=== PATIENT | female | born 1970 | race Caucasian/White ===

== ENCOUNTER 2019-05-22 12:40 | Emergency (ER) | payer BC, SELFPAY ==
[2019-05-22 12:53] VITALS: BMI 51.3
[2019-05-22 12:56] VITALS: BP 201/125; PULSE 99; RESP 18; TEMP 36.7; O2SAT 97
--- NOTE | 2019-05-22 13:10 | XR_ITS ---
WS: [id number] XR finger LT min 2V [id number] REASON FOR EXAM: trauma; L index FINDINGS: This study shows a corner fracture of the proximal portion of the distal first phalanx. Sma ll ossicle is seen from the bony elements. The remaining hand was normal. XR/XR finger LT min 2V [id number] IMPRESSION: Her fracture of the proximal portion of the distal first phalanx.
--- NOTE | 2019-05-22 13:11 | ED_ITS ---
HPI - Female Genitourinary General: Chief complaint: Back Pain/Injury Stated complaint: BACK AND GROIN PAIN Time Seen by Provider: 05/22/19 13:00 Source: patient Mode of arrival: ambulatory Limitations: no limitations History of Present Illness: HPI Narrative: Patient is a 48-year-old female who presents to ED today with complaints of left-sided back pain that began around 9 AM this morning. She states pain seems to radiate around into her left lower abdomen and groin. She has noticed some urinary hesitancy today. She states she normally suffers from urinary incontinence but states this has been worse over the past few days. She has not noticed any dysuria, odor. She has not had any vaginal discharge. She states she is not sexually active. Denies history of nephrolithiasis. Patient has not been running fevers. She does not complain of any nausea or vomiting or changes in bowel habits. Patient also wants me to evaluate her left index finger. Patient states she injured it 3 weeks ago and believes it might be broken. MD elicited complaint: back pain, flank pain, urinary incontinence and difficulty urinating Onset (ago): hour(s) Location of symptoms: LLQ, urethra, low back and flank Severity: moderate Consistency: constant Vaginal discharge: none Vaginal bleeding: none Urinary symptoms: Difficulty Urinating and Flank Pain Relieving factors: none Associated symptoms: Reports abdominal pain; Deny headache(s), nausea, syncope or vaginal discharge Review of Systems Const: Denies: fever, chills, body aches, change in appetite, change in weight, fatigue or malaise Card: Denies: chest pain, palpitations, irregular heart rhythm, edema, lightheadedness, syncope or pre-syncope Resp: Denies: shortness of breath, productive cough, coughing up blood or chest congestion GI: Reports: abdominal pain; Denies: nausea, vomiting, diarrhea, rectal pain, change in stool character, blood in stool, mucus in stool, white/light colored stool or fatty stool : Reports: flank pain, urinary hesitancy and urinary incontinence (chronic ); Denies: difficulty urinating, painful urination, urinary frequency, urinary urgency, blood in urine, genital itching, vaginal odor, vaginal bleeding or vaginal discharge Musc: Denies: neck pain, extremity pain, extremity swelling or joint pain Skin/Breast: Denies: rash Neuro: Denies: headache, numbness in extremities, weakness in extremities or changes in sensation PFSH ED PFSH: Social History Smoking and tobacco status: current every day smoker Physical Exam Const: COMMON NORMALS: no apparent distress, oriented x3, no limitations and alert NUTRITIONAL APPEARANCE: obese morbidly obese HENMT: COMMON NORMALS: normocephalic and head/scalp atraumatic HEAD & SCALP: normocephalic and atraumatic Resp: COMMON NORMALS: normal respiratory effort and clear to auscultation bilaterally AUSCULTATION: clear to auscultation bilaterally Cardio: COMMON NORMALS: regular rate and regular rhythm RATE: regular rate RHYTHM: regular rhythm GI: COMMON NORMALS: normal to inspection, nondistended, normoactive bowel sounds, soft to palpation, non-tender, no hepatosplenomegaly and no masses PALPATION: Yes soft and Yes no hepatosplenomegaly OTHER: states she is not TTP; states pain is more internal Back/Pelvis: OTHER: TTP just below L flank Extremity: OTHER: TTP L distal phalanx; small deformity noted Neuro: COMMON NORMALS: oriented x3 SENSORIUM/ORIENTATION: Yes alert Skin: COMMON NORMALS: no rashes or lesions noted GENERAL SKIN EXAM: no rashes or lesions noted Course Vital Signs: Vital signs: Vital Signs Temperature 98.0 F 05/22/19 12:56 Pulse Rate 99 05/22/19 12:56 Respiratory Rate 18 05/22/19 12:56 Blood Pressure 201/125 05/22/19 12:56 Pulse Oximetry 97 05/22/19 12:56 MDM - Female [facility] Narrative: Medical decision making narrative: Patient with several nonobstructing left renal stones. Patient symptoms are most likely consistent with a recently passed stone. Her labs are non-concerning at this time. She does have a distal phalanx fracture of her left index finger. We will splint this and have her follow-up with orthopedics. We will give her pain medications and nausea meds for the kidney stones. Recommend she follow-up with PCP. Retu rn to ED precautions given. Lab Data: Labs: Lab Results 05/22/19 05/22/19 05/22/19 Range/Units 13:14 13:37 13:37 WBC 9.5 (4.0-10.0) 10^3/ uL RBC 4.65 (4.1-5.3) 10^6/u L Hgb 14.0 (11.5-15.3) g/dL Hct 41.9 (37.0-47.0) % MCV 90.1 (81-99) fL MCH 30.1 (28.0-34.0) pg MCHC 33.4 (30.0-36.0) g/dL RDW 13.2 (12.1-15.1) % Plt Count 265 (130-400) 10^3/c mm MPV 10.6 H (7.4-10.4) fL Neut % (Auto) 67.7 % Lymph % (Auto) 23.8 % Quay % (Auto) 4.1 % Eos % (Auto) 3.5 % Baso % (Auto) 0.3 % Neut # (Auto) 6.5 (1.8-7.7) 10^3/u L Lymph # (Auto) 2.3 (0.8-4.8) 10^3/u L Quay # (Auto) 0.4 (0.2-0.9) 10^3/u L Eos # (Auto) 0.3 (0.0-0.8) 10^3/u L Baso # (Auto) 0.0 (0.0-0.1) 10^3/u L Nucleated RBC % (a uto) 0 % Nucleated RBCs # 0.0 /100WBC Sodium 135 L (136-145) mmol/L Potassium 4.2 (3.5-5.1) mmol/L Chloride 98 (98-107) mmol/L Carbon Dioxide 30 H (22-29) mmol/L Anion Gap 11.2 (5-19) BUN 8 (6-20) mg/dL Creatinine 0.6 (0.5-0.9) mg/dL GFR Calculation 107.6 (90-130) mL/min Glucose 205 H (65-115) mg/dL Calculated Osmolal ity 282 L (285-295) mOsm/k g Calcium 9.3 (8.5-10.5) mg/dL Total Bilirubin 0.5 (0.15-1.2) mg/dL AST 30 (0-32) U/L ALT 67 H (0-33) U/L Alkaline Phosphata se 128 H (35-105) IU/L Total Protein 7.3 (6.6-8.7) g/dL Albumin 4.2 (3.5-5.2) g/dL Globulin 3.1 (1.3-4.6) g/dL HCG, Qual (Negative) Urine Color Yellow (Yellow) Urine Appearance Clear (CLEAR) Urine pH 6 (5-7) Ur Specific Gravit y 1.020 (1.005-1.030) Urine Protein Trace (Negative) Urine Glucose (UA) Norm (Normal) Urine Ketones Negative (Negative) Urine Blood Neg (Negative) Urine Nitrate Negative (Negative) Urine Bilirubin Neg (NEGATIVE) Urine Urobilinogen Norm (Negative) mg/dL Ur Leukocyte Cathie ase Negative (Negative) Urine RBC None (0-2) /hpf Urine WBC None (0-5) /hpf Ur Squamous Epith Cells 15-25 H (0-5) Urine Bacteria 1+ H (NONE) Urine Mucus Trace 05/22/19 Range/Units 13:37 WBC (4.0-10.0) 10^3/ uL RBC (4.1-5.3) 10^6/u L Hgb (11.5-15.3) g/dL Hct (37.0-47.0) % MCV (81-99) fL MCH (28.0-34.0) pg MCHC (30.0-36.0) g/dL RDW (12.1-15.1) % Plt Count (130-400) 10^3/c mm MPV (7.4-10.4) fL Neut % (Auto) % Lymph % (Auto) % Quay % (Auto) % Eos % (Auto) % Baso % (Auto) % Neut # (Auto) (1.8-7.7) 10^3/u L Lymph # (Auto) (0.8-4.8) 10^3/u L Quay # (Auto) (0.2-0.9) 10^3/u L Eos # (Auto) (0.0-0.8) 10^3/u L Baso # (Auto) (0.0-0.1) 10^3/u L Nucleated RBC % (a uto) % Nucleated RBCs # /100WBC Sodium (136-145) mmol/L Potassium (3.5-5.1) mmol/L Chloride (98-107) mmol/L Carbon Dioxide (22-29) mmol/L Anion Gap (5-19) BUN (6-20) mg/dL Creatinine (0.5-0.9) mg/dL GFR Calculation (90-130) mL/min Glucose (65-115) mg/dL Calculated Osmolal ity (285-295) mOsm/k g Calcium (8.5-10.5) mg/dL Total Bilirubin (0.15-1.2) mg/dL AST (0-32) U/L ALT (0-33) U/L Alkaline Phosphata se (35-105) IU/L Total Protein (6.6-8.7) g/dL Albumin (3.5-5.2) g/dL Globulin (1.3-4.6) g/dL HCG, Qual Negative (Negative) Urine Color (Yellow) Urine Appearance (CLEAR) Urine pH (5-7) Ur Specific Gravit y (1.005-1.030) Urine Protein (Negative) Urine Glucose (UA) (Normal) Urine Ketones (Negative) Urine Blood (Negative) Urine Nitrate (Negative) Urine Bilirubin (NEGATIVE) Urine Urobilinogen (Negative) mg/dL Ur Leukocyte Cathie ase (Negative) Urine RBC (0-2) /hpf Urine WBC (0-5) /hpf Ur Squamous Epith Cells (0-5) Urine Bacteria (NONE) Urine Mucus Imaging Data: CT renal : Radiologist's impression: [place] [address] CT Scan Report Signed Patient: Rimma White Unit #: [id number] : 1970 Age/Sex: 48 / F ADM Date: 05/22/19 Loc: ER Room/Bed: Attending Dr: Ordering Provider/Ordering MD: Casi Hood Date of Service: 05/22/19 Procedure(s): CT kidney stone 19739 Accession Number(s): [id number] Report Number: [id number] PROCEDURE INFORMATION: Exam: CT Abdomen And Pelvis Without Contrast Exam date and time: 05/22/2019 1:11 PM Age: 48 years old Clinical indication: Abdominal pain; Flank; Left; Prior surgery; Surgery date: 6+ months; Surgery type: Hysto, hernia, bladder; Additional info: L flank/abdominal pain; Urinary hesitancy TECHNIQUE: Imaging protocol: Computed tomography of the abdomen and pelvis without contrast. Total DLP: 1969.74 mGy-cm Radiation optimization: All CT scans at this facility use at least one of these dose optimization techniques: automated exposure control; mA and/or kV adjustment per patient size (includes targeted exams where dose is matched to clinical indication); or iterative reconstruction. COMPARISON: CT abdomen pelvis w con* [id number] 11/11/2016 11:50 PM FINDINGS: Liver: Mild fatty liver. Gallbladder and bile ducts: Normal. No calcified stones. No ductal dilation. Pancreas: Normal. No ductal dilation. Spleen: Normal. No splenomegaly. Adrenals: Normal. No mass. Kidneys and ureters: One or more nonobstructing left renal calyceal stones. Stomach and bowel: Moderate diverticulosis. Appendix: Normal appendix. Intraperitoneal space: Unremarkable. No free air. No significant fluid collection. Vasculature: Calcification of the abdominal aorta and/or iliac arteries consistent with atherosclerotic vessel disease. Lymph nodes: Unremarkable. No enlarged lymph nodes. Bladder: Unremarkable as visualized. Reproductive: Stable hysterectomy. Bones/joints: Mild multilevel spine degenerative changes including degenerative disc disease, spondylosis and facet degenerative changes. Soft tissues: Unremarkable. CT/CT kidney stone 22224 IMPRESSION: 1. Mild fatty liver. 2. One or more nonobstructing left renal calyceal stones. Radiation Dose CTDIVOL = (mGy): DLP = 1968.74 (mGy-cm) Dictated By: Naveen Gloria MD Signed By: Naveen Gloria MD Signed Date/Time: 05/22/19 1340 DD/ 1338 L finger XR: Radiologist's impression: [facility] [address] [place] [address] XRay Report Signed Patient: Rimma White Unit #: [id number] : 1970 Age/Sex: 48 / F ADM Date: 05/22/19 Loc: ER Room/Bed: Attending Dr: Ordering Provider/Ordering MD: Casi Hood Date of Service: 05/22/19 Procedure(s): XR finger LT min 2V 94911 Accession Number(s): [id number] Report Number: [id number] WS: [id number] XR finger LT min 2V 21181 REASON FOR EXAM: trauma; L index FINDINGS: This study shows a corner fracture of the proximal portion of the distal first phalanx. Small ossicle is seen from the bony elements. The remaining hand was normal. XR/XR finger LT min 2V 35771 IMPRESSION: Her fracture of the proximal portion of the distal first phalanx. Dictated By: Joon Gandhi DO Signed By: Joon Gandhi DO Signed Date/Time: 05/22/191337 DD/ 133 Discharge Plan Discharge Patient Disposition: Home, Self-Care Clinical Impression: Left nephrolithiasis Closed fracture of phalanx of left index finger Qualifiers: Encounter type: initial encounter Phalanx: distal Fracture alignment: nondisplaced Qualified Code(s): S62.661A - Nondisplaced fracture of distal phalanx of left index finger, initial encounter for closed fracture Condition: Stable Prescriptions: New hydrocodone-acetaminophen 5-325 mg tablet 1 tab PO Q6H PRN (Reason: pain) Qty: 14 RF: 0 Zofran 4 mg tablet 4 mg PO Q6H PRN (Reason: nausea and vomiting) Qty: 14 RF: 0 Discharge Orders: Discharge Order (Routine); Ordered 05/22/19 Ordered By: Casi Hood Referrals: Wilmer Wilkins DO [Primary Care Provider] - Discharge Diet: Usual diet Discharge Activity: Increase activity as tolerated Patient Instructions: Finger Fracture (ED), Kidney Stones (ED) Coding Level of Care Code ED Spider Assembler for Chg Fwd Exam Detailed
[2019-05-22 13:46] LABS: Bilirubin Urine Neg (NEGATIVE); Blood Urine Neg (Negative); Glucose Urine UA Norm (Normal); Ketones Urine Negative (Negative); Nitrate Urine Negative (Negative); Protein Urine Trace (Negative); Urine Appearance Clear (CLEAR); Urine Color Yellow (Yellow); pH Urine 6 (5-7)
[2019-05-22 13:47] LABS: Add Urine Microscopic? YES; Leukocyte Esterase Urine Negative (Negative); Urobilinogen Urine Norm (Negative)
[2019-05-22 13:48] LABS: Basophils % 0.3 %; Eosinophils # 0.3 10^3/uL (0.0-0.8); Eosinophils % 3.5 %; Hematocrit 41.9 % (37.0-47.0); Lymphocytes # 2.3 10^3/uL (0.8-4.8); Lymphocytes % 23.8 %; Mean Corpuscular HGB Conc 33.4 g/dL (30.0-36.0); Mean Corpuscular Hemoglobin 30.1 pg (28.0-34.0); Mean Corpuscular Volume 90.1 fL (81-99); Mean Platelet Volume 10.6 fL (7.4-10.4); Monocytes # 0.4 10^3/uL (0.2-0.9); Monocytes % 4.1 %; Neutrophils # 6.5 10^3/uL (1.8-7.7); Neutrophils % 67.7 %; Nucleated Red Blood Cells % 0 %; Platelet Count 265 10^3/cmm (130-400); Red Blood Count 4.65 10^6/uL (4.1-5.3); Red Cell Distribution Width 13.2 % (12.1-15.1); White Blood Count 9.5 10^3/uL (4.0-10.0)
[2019-05-22 13:54] LABS: Add Urine Culture? No; Bacteria Urine 1+; Mucus Urine TRACE; Squamous Epithelial Cell Urine 15-25 (0-5)
[2019-05-22 14:16] LABS: HCG, Serum Qual Negative (Negative)
[2019-05-22 14:20] LABS: Alanine Aminotransferase 67 U/L (0-33); Albumin Level 4.2 g/dL (3.5-5.2); Alkaline Phosphatase 128 IU/L (35-105); Anion Gap 11.2 (5-19); Aspartate Amino Transferase 30 U/L (0-32); Blood Urea Nitrogen 8 mg/dL (6-20); Calcium 9.3 mg/dL (8.5-10.5); Carbon Dioxide 30 mmol/L (22-29); Chloride 98 mmol/L (98-107); Globulin 3.1 g/dL (1.3-4.6); Glomerular Filtration Rate 107.6 mL/min (90-130); Glucose 205 mg/dL (65-115); Osmolality Calculated 282 mOsm/kg (285-295); Potassium 4.2 mmol/L (3.5-5.1); Sodium 135 mmol/L (136-145); Total Bilirubin 0.5 mg/dL (0.15-1.2); Total Protein 7.3 g/dL (6.6-8.7)
[2019-05-22 14:48] VITALS: RESP 18; O2SAT 98
[2019-05-22] MEDS: morphine 4 mg/mL SDV 1 mL IM (14:48)
[2019-05-22] MEDS: ondansetron 2 mg/ML SDV 2 mL 4 MG IM (14:48)
[2019-05-22] MEDS: ketorolac 60 mg/2 mL INJ IM (14:48)
[2019-05-22 15:15] VITALS: BP 158/107; PULSE 74; RESP 18; O2SAT 92
--- NOTE | 2019-05-24 12:36 | DCPLANNER ---
market asset protection manager had message to schedule a follow up appointment for patient with ortho. market asset protection manager called the ortho clinic, spoke with Jessi, gave clinic patients information. market asset protection manager was told that patients information would be printed and reviewed. Clinic will call complex case manager and patient with appointment information.
--- NOTE | 2019-05-28 08:46 | DCPLANNER ---
Patient had an appointment scheduled for 05.25.19 with ortho, patient did attend the appointment.
== END 2019-05-22 15:29 | disposition home or self-care (01) ==
PROVIDERS: Emergency Provider Physician Assistant; Family Provider Internal Medicine; PCP Internal Medicine
DX: S62.522A Displaced fracture of distal phalanx of left thumb, initial encounter for closed fracture (principal); N20.0 Calculus of kidney; E66.01 Morbid (severe) obesity due to excess calories; Z68.43 Body mass index [BMI] 50.0-59.9, adult; F17.200 Nicotine dependence, unspecified, uncomplicated; X58.XXXA Exposure to other specified factors, initial encounter
CPT/HCPCS: 12345; 29130; 36415; 73140; 74176; 80053; 81001; 84703; 85025; 96372; 99281; 99283; J1885; J2270; J2405

== ENCOUNTER 2019-09-06 09:30 | Outpatient (CLI) | payer BC, SELFPAY ==
--- NOTE | 2019-09-06 09:36 | MM_ITS ---
WS: [id number] BILATERAL DIGITAL SCREENING MAMMOGRAPHY WITH CAD CLINICAL INFORMATION: SCREENING HISTORY: Screening mammogram. No current complaints. COMPARISON: None. TECHNIQUE: Bilateral CC and MLO views. FINDINGS: Scattered fibroglandular densities bilaterally. No suspicious focal mass, asymmetry, calcifications, or architectural distortion. No evidence of malignancy. Incidental intramammary lymph nodes. Incidental axillary left nodes with fatty lidia. MM/[place] [id number] IMPRESSION: BI-RADS: 2-Benign FOLLOW UP: 1 Year Follow-up Recommend return to annual screening mammography.
== END 2019-09-06 09:31 | disposition home or self-care (01) ==
LOC: RADSHAW 09:35
PROVIDERS: PCP Internal Medicine; Visit Provider Family Medicine
DX: Z12.31 Encounter for screening mammogram for malignant neoplasm of breast (principal)
CPT/HCPCS: 77067

== ENCOUNTER 2019-10-30 22:50 | Inpatient (IN) | payer BC, SELFPAY ==
--- NOTE | 2019-10-30 22:51 | ECG_ITS ---
[facility] Test Date: 2019-10-30 Pat Name: Rimma White Department: Room: Gender: Female [employer] Assistant: : 1970 Requested By: Antonio Kay Order Number: [id number] Lottie MD: Ileana Espinal M.D. Measurements Intervals [place] Rate: 85 P: 70 LA: 203 QRS: 55 QRSD: 110 T: 98 QT: 377 QTc: 451 Interpretive Statements SINUS RHYTHM POSSIBLE LEFT ATRIAL ENLARGEMENT [-0.1mV P WAVE IN V1/V2] LOW QRS VOLTAGE IN PRECORDIAL LEADS [QRS DEFLECTION < 1.0 mV IN CHEST LEADS] POSSIBLE ANTERIOR MYOCARDIAL INFARCTION , OF INDETERMINATE AGE [30 ms Q WAVE IN V3/V4, OR R < 0.2 mV IN V4] ST ELEVATION, CONSIDER INFERIOR INJURY [MARKED ST ELEVATION W/O NORMALLY INFLECTED T WAVE IN II/aVF] ACUTE AK Compared to ECG 09/29/2018 13:28:33 ST (T wave) deviation now present Sinus tachycardia no longer present Myocardial infarct finding still present Electronically Signed On 11-01-2019 0:00:02 CDT by Ileana Espinal M.D. [email or web address]
[2019-10-30 22:53] VITALS: BP 123/90; PULSE 85; RESP 18; TEMP 36.7; O2SAT 94; BMI 53.1
[2019-10-30] MEDS: ticagrelor 90 mg Tablet 180 MG PO (23:00)
[2019-10-30 23:02] LABS: Basophils # 0.1 10^3/uL (0.0-0.1); Basophils % 0.4 %; Eosinophils # 0.4 10^3/uL (0.0-0.8); Eosinophils % 2.9 %; Hematocrit 44.6 % (37.0-47.0); Hemoglobin 14.7 g/dL (11.5-15.3); Lymphocytes # 4.8 10^3/uL (0.8-4.8); Lymphocytes % 35.1 %; Mean Corpuscular Hemoglobin 30.4 pg (28.0-34.0); Mean Corpuscular Volume 92.1 fL (81-99); Mean Platelet Volume 10.9 fL (7.4-10.4); Monocytes # 0.8 10^3/uL (0.2-0.9); Monocytes % 5.8 %; Neutrophils # 7.45 10^3/uL (1.8-7.7); Nucleated Red Blood Cells % 0 %; Platelet Count 278 10^3/cmm (130-400); Red Blood Count 4.84 10^6/uL (4.1-5.3); White Blood Count 13.6 10^3/uL (4.0-10.0)
[2019-10-30] MEDS: heparin 5,000 unit/mL INJ 1 mL 4000 UNIT IVP (23:03)
[2019-10-30 23:04] VITALS: RESP 16
[2019-10-30] MEDS: morphine 4 mg/mL SDV 1 mL IVP (23:04)
--- NOTE | 2019-10-30 23:04 | XACV_ITS ---
Ht: 160 cm Wt: 136 kg BSA: 2.55 m2 Gender: Female : 1970 Exam Priority: Routine Procedure(s): Procedure Description: Diagnostic procedure Procedure Description: Left Heart Catheterization Procedure Description: Right Heart Catheterization Diagnostic Findings LM has 0% stenosis. pLAD: Mild 30% stenosis, ZUNILDA: 3 flow. mLAD: Mild 30% stenosis, ZUNILDA: 3 flow. Mid Circumflex Coronary Artery: Severe 95% stenosis, ZUNILDA: 2 flow. Mid Right Coronary Artery: Severe 95% stenosis, ZUNILDA: 2 flow. Coronary angiography shows right dominance. PCI Status: Urgent PCI Indication: STEMI - Immediate PCI for STEMI Interventional Findings Mid Circumflex Coronary Artery: 95% stenosis treated with MDT R KISHA 4.0X12 JAZMINE. 0% residual stenosis, ZUNILDA: 3 flow. Mid Right Coronary Artery: 95% stenosis treated with MDT R KISHA 2.75X30 JAZMINE. 0% residual stenosis, ZUNILDA: 3 flow. Conclusions There is severe coronary artery disease with three vessel disease. Mid Circumflex Coronary Artery was treated with Drug Eluting Stent. Mid Right Coronary Artery was treated with Drug Eluting Stent. Recommendations 1-Return to inpatient for close monitoring and routine cath care 2-Risk factor modification for secondary prevention 3-Statin with LDL goal <70 mg/dl, aspirin 81 mg life-long 4-Patient was pre-loaded with 180mg of Brillinta. Continue Brillinta 90mg p.o. twice daily for at least one year. We will assess at the end of one year again to continue it further or not 5-Continue optimal medical management 6-Follow up with Dr. Mendez in four weeks and with your PCP in one week . Interventional RX Recommendation: PCI w/o planned CABG Diagnostic RX Recommendation: PCI w/o planned CABG Pressures Phase:Rest AO : 125 mmHg / 76 mmHg ( 98 mmHg ) @ 6:34:00 PM 81 mmHg / 61 mmHg ( 71 mmHg ) @ 7:04:00 PM Clinical Evaluation EBL: 5mL-10mL Procedural Details Pre-Procedure Time Out. Identified patient by full name and date of as verbalized by the patient/guarantor. Does the consent match the physician's order: N/A Emergent; Informed Consent not obtained due to time critical life threat. Accurate & Complete Informed Consent: N/A Emergent; Informed Consent not obtained due to time critical life threat. Inpatient/Outpatient History & Physical on Chart: N/A Emergent; Informed Consent not obtained due to time critical life threat. If H&P is completed, is and addenduem needed: N/A Emergent; Informed Consent not obtained due to time critical life threat; If yes, is the addendum complete: N/A Emergent; Informed Consent not obtained due to time critical life threat. Visualize and Verify Site with Patient/Guarantor: N/A. Relevant Radiology Images available: N/A Emergent; Informed Consent not obtained due to time critical life threat. Pre-op teaching completed and patient verbalized understanding. The risks, benefits, and alternatives of sedation and/or procedure were discussed by physician. The patient agrees to continue. Procedure started. Correct patient, site and procedure confirmed by cath team. Current diagnosis: STEMI. PERRLA. Strong, equal hand portable sawyer bilaterally. Lungs clear x 5 lobes. IV Site on Arrival: 18 gauge in the right anticubital. IV Site on Arrival: 18 gauge in the left anticubital. Oxygen started at 2liters/min via nasal canula. IV Fluids: 0.9% NaCl at KVO. 0 mL infused prior to lab animal technician. right groin was prepped with chloroprep then draped in the usual sterile fashion. right radial was prepped with chloroprep then draped in the usual sterile fashion. Physician notified. Baseline sample Acquired. HR: 104 BPM. Equipment: 6F - Radial. Cardiac Cath Pack. ACIST Manifold Kit Model BT 2000. Heparinized Saline (2 units/mL), 1000 mL bag. Physician arrived. Physician scrubbed in. Immediate Pre-Procedure Time Out. Correct Patient: Yes; Correct Procedure: Yes; Correct Site: Yes; Correct Patient Position: Yes; Correct Supplies: Yes; Dried Flammable Prep: Yes; Blood Products Available: N/A Emergent; Informed Consent not obtained due to time critical life threat;. Lidocaine 1% infiltrated to the right radial. Arterial access obtained. A 6 maldivian JR4 catheter in over wire. Catheter out. A 6 maldivian 3DRC catheter in over wire. pt moving around alot. unable to keep pt still at this time. 6 maldivian XB 3 guide catheter was inserted over the wire. oxy mask set at 6 lpm. Multiple views taken of left coronary artery. Benld guidewire was advanced through the guide catheter to lesion in the mid Circ. Stent inserted to lesion in the mid Circ. Inflation Number : 1 Scarlett ANTONY Pedroza KISHA 4.0X12 JAZMINE -Lot Number# [id number] was prepped and advanced across the Mid CX. The stent was deployed at 14 FRANCES for 0:19 seconds. Balloon and wire out. Results checked. ACT drawn. Results 173 seconds. Therapeutic limits - pre-heparin administration 90-150 seconds and monitoring heparin during a vascular procedure >250 seconds. A 6 maldivian Jerry catheter in over wire. Multiple views taken of right coronary artery. 6 maldivian AL 0.75 guide catheter was inserted over the wire. Guide catheter out. A 6 maldivian JR3.5 catheter in over wire. Benld guidewire was advanced through the guide catheter to lesion in the mid RCA. Unable to cross lesion, guidewire removed. Runthrough guidewire was advanced through the guide catheter to lesion in the mid RCA. Inflation Number : 1 Scarlett ANTONY Pedroza KISHA 2.75X30 JAZMINE -Lot Number# [id number] was prepped and advanced across the Mid RCA. The stent was deployed at 12 FRANCES for 0:30 seconds. Stent balloon and wire out. marla applying ap pads at this time. TR band placed. Hemostasis obtained. PERRLA. Strong, equal hand portable sawyer bilaterally. No VTE prophylaxis required. Contrast type used: Omnipaque 300 mgI/mL, 500 mL bottle. PCI Indication: STEMI. Complications: none. Medication's Wasted: Lidocaine 1% = 16 mL. Medication's Wasted: Heparin = 2000 units. Medication's Wasted: Nitro = 49.8 mg. Total IV fluids: 450 mL. Post-op diagnosis: 2 vessel conary artery disease\. Estimated blood loss: 5mL-10mL. Procedure completed. Patient transferred by wheelchair to 1st floor. Vital chart was stopped. Site: Right Radial artery Sheath Size: 6 Fr Hemostasis Success: Unsuccessful Procedure Medications Start: 11:16 PM Stop: 11:16 PM Medication: Versed Amount: 1 mg Route: I.V. Start: 11:16 PM Stop: 11:16 PM Medication: Fentanyl Amount: 50 mcg Route: I.V. Start: 11:21 PM Stop: 11:21 PM Medication: Fentanyl Amount: 50 mcg Route: I.V. Start: 11:21 PM Stop: 11:21 PM Medication: Versed Amount: 2 mg Route: I.V. Start: 11:31 PM Stop: 11:31 PM Medication: Heparin Amount: 6000 units Route: I.V. Start: 11:34 PM Stop: 11:34 PM Medication: Aggrastat 12.5 mg/250 mL Amount: 67.5 ml Route: I.V. bolus Start: 11:34 PM Stop: 11:34 PM Medication: Aggrastat 12.5 mg/250 mL Amount: 24.3 ml/hr Route: I.V. drip Start: 11:47 PM Stop: 11:47 PM Medication: Fentanyl Amount: 50 mcg Route: I.V. Start: 11:50 PM Stop: 11:50 PM Medication: Heparin Amount: 3000 units Route: I.V. Start: 12:01 AM Stop: 12:01 AM Medication: Atropine Amount: 1 mg Route: I.V. I, the attending physician, have reviewed and verified all procedure medications. Yes, all medications given per verbal order Report Signatures Finalized by:Souleymane Mendez MD on 11/13/2019 1:42:54 PM
[2019-10-30] MEDS: sodium chloride 0.9% 1,000 ML 999 ML IV (23:05)
--- NOTE | 2019-10-30 23:07 | PC.NURSE ---
patient taken to medical lab technician
--- NOTE | 2019-10-30 23:09 | PM.HP ---
Providers/Chief Complaint Admitting Physician: Souleymane Mendez MD Primary Care Provider: Wilmer Wilkins DO Chief Complaint: STEMI History of Present Illness Rimma White is a 49 year old female past medical history significant for obesity, uncontrolled diabetes mellitus, hypertension, continuous tobacco abuse started having chest pain around 2 hours ago when it became more consistent with shortness of breathe she called 911. ST elevation noted in the inferior lead with reciprocal changes in the high lateral 1 and aVL. Poor R wave progression in the anterior lead which could be due to lead placement. Patient continues to have chest pain despite of pain medicine and nitro. She was given 180 mg of Brilinta and 4000 units of heparin along with 325 mg of aspirin. We will be taking her to the [facility] now. Patient has been explained all risk benefit and alternative for the procedure. She would like to proceed with it. She does not have any contraindication for dual antiplatelet therapy. Medications/Allergies Home Medications Medication Instructions Recorded Confirmed Last Taken Type ondansetron HCl [Zofran] 4 mg PO Q6H PRN #14 tab 05/22/19 10/31/19 Unknown Rx metformin 500 mg PO BID 10/31/19 10/31/19 10/30/19 17:00 History Allergies Allergy/AdvReac Type Severity Reaction Status Date / Time quetiapine [From Seroquel] Allergy Unknown Verified 10/30/19 22:57 tetracycline Allergy Unknown Verified 10/30/19 22:57 PFSH Acute PFSH: Medical History (Updated 10/31/19 @ 01:35 by Antonio Clark DO) Diabetes Hypertension Obesity Social History Smoking and tobacco status: current every day smoker Vitals/I&O/Wt Last Vital Signs Temp 98.1 F 10/30/19 22:53 Pulse 85 10/30/19 22:53 Resp 16 10/30/19 23:04 BP 123/90 10/30/19 22:53 Pulse Ox 94 10/30/19 22:53 Weight last 48 hrs Weight 300 lb Physical Exam Narrative: EXAM NARRATIVE: GENERAL: Patient is alert, awake and oriented x3. Moderate distress, appears to be cold and clammy NECK: No jugular vein distension. HEENT: No cyanosis. No icterus. No pallor. HEART: Regular S1 and S2. No murmur, rub or gallop. LUNGS: Clear to auscultate bilaterally. ABDOMEN: Soft, nontender and nondistended. Positive bowel sounds. No guarding, rebound or tenderness. CENTRAL NERVOUS SYSTEM: Grossly nonfocal. EXTREMITIES: Lower extremities without edema bilaterally. Pulses palpable in the lower extremities, both dorsalis pedis and posterior tibial. Data : 10/31/19 05:10 10/31/19 05:10 A&P Assessment and plan (1) ST elevation (STEMI) myocardial infarction: Patient has inferolateral ST elevation most likely circumflex, could be RCA . We will proceed with urgent left heart cath and PCI if indicated. Further plan will be advised as per progress of the patient Status: Acute (2) Tobacco abuse: Advised to quit smoking. Status: Acute (3) Obesity: Advised losing weight Status: Acute Qualifiers: Obesity classification: adult class 3 (BMI >= 40) (4) Diabetes: We will start patient on sliding scale insulin. Further plan will be advised upon discharge. Status: Acute Attestations Medical Necessity Statement*: I am expecting her stay to cross more than 2 midnights. 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
[2019-10-30 23:11] LABS: INR 0.89 (0.8-1.2)
[2019-10-30 23:12] LABS: Partial Thromboplastin Time 24.4 SECONDS (23.9-36.7)
--- NOTE | 2019-10-30 23:13 | W.PM.OPSUD ---
Surgery/Procedure H&P Update DATE OF PROCEDURE: October 30, 2019 DATE H&P PERFORMED: 10/30/19 H&P UPDATE INFORMATION: I have examined patient prior to procedure PREOP DIAGNOSIS: ST elevation VA PATIENT REASSESSED PRIOR TO SEDATION, WITH NO CHANGE NOTED: Yes PHYSICAL EXAM: alert, oriented x 3, clear to auscultation bilaterally and regular rate & rhythm AIRWAY EVAL/ANESTHESIA PLAN: ASA II, Risks, benefits & alternatives of sedation and/or procedure discussed and Patient agrees to continue as planned
[2019-10-30 23:19] LABS: Troponin(5th) Baseline 24 ng/L (0-10)
[2019-10-30 23:32] LABS: Alanine Aminotransferase 61 U/L (0-33); Albumin Level 4.3 g/dL (3.5-5.2); Alkaline Phosphatase 133 IU/L (35-105); Aspartate Amino Transferase 23 U/L (0-32); Blood Urea Nitrogen 14 mg/dL (6-20); Calcium 9.3 mg/dL (8.5-10.5); Carbon Dioxide 26 mmol/L (22-29); Chloride 96 mmol/L (98-107); Creatine Phosphokinase 59 U/L (26-192); Globulin 2.6 g/dL (1.3-4.6); Glomerular Filtration Rate 89.7 mL/min (90-130); Glucose 277 mg/dL (65-115); NT Pro B Type Natriuretic Pept 61 pg/mL (0-125); Osmolality Calculated 284 mOsm/kg (285-295); Sodium 134 mmol/L (136-145); Total Bilirubin 0.7 mg/dL (0.15-1.2); Total Protein 6.9 g/dL (6.6-8.7)
[2019-10-31] VITALS (19 sets, daily range): BP systolic 91–146; BP diastolic 65–104; PULSE 73–95; RESP 15–24; TEMP 36.6; O2SAT 91–96
[2019-10-31] MEDS: HYDROcodone-acetaminophen 5-325 mg Tablet 1 TAB PO ×3 (00:50→17:11)
[2019-10-31] MEDS: ALPRAZolam 0.25 mg Tablet PO (00:50)
[2019-10-31] MEDS: atorvastatin 40 mg Tablet 80 MG PO ×2 (00:51→21:01)
[2019-10-31] MEDS: sodium chloride 0.9% 1,000 ML 100 ML IV ×2 (01:02→21:02)
--- NOTE | 2019-10-31 01:26 | ED_ITS ---
HPI - Chest Pain General: Chief Complaint: Chest Pain Stated Complaint: STEMI History of Present Illness: HPI narrative: 49-year-old female with a history of tobacco abuse and diabetes. She presents with chest pain that started while she was at rest this evening. She has had pain on and off for several days. The pain and shortness of breath was much worse tonight. EMS was called. Associated symptoms: Reports dyspnea and nausea; Deny abdominal pain, fever(s) or vomiting Review of Systems Const: Denies: fever(s) or chills Eyes: Denies: change in vision or blurry vision ENMT: Denies: swelling of lips/tongue Card: Reports: chest pain and dyspnea on exertion; Denies: irregular heart rhythm, edema or orthopnea Resp: Reports: dyspnea; Denies: productive cough, non-productive cough or wheezing GI: Reports: nausea; Denies: abdominal pain or vomiting : Denies: dysuria or hematuria Musc: Reports: back pain; Denies: neck pain Skin/Breast: Denies: rash or erythema Neuro: Reports: dizziness; Denies: headache(s) or vertigo Psych: Reports: anxiety PFSH ED PFSH: Medical History (Updated 10/31/19 @ 01:35 by Antonio Clark DO) Diabetes Hypertension Obesity Social History Smoking and tobacco status: current every day smoker Physical Exam Const: GENERAL APPEARANCE: cooperative, well developed and ill appearing ORIENTATION/CONSCIOUSNESS: Yes oriented to person, Yes oriented to place and Yes oriented to time HENMT: COMMON NORMALS: normocephalic, external ears normal and Normal external nose present HEAD & SCALP: normocephalic FACE & SINUS: normal facial exam NOSE: Normal external nose present and No nasal discharge present EXTERNAL EAR: Yes external ears normal Eye: COMMON NORMALS: Equal, round and reactive pupils present, EOMs intact bilaterally and conjunctivae normal EYELID: eyelids normal CONJUNCTIVA: Yes conjunctivae normal PUPIL: Yes Equal, round and reactive pupils present Neck/C-Spine: GENERAL: No tracheal deviation Chest: COMMONS NORMALS: normal inspection of the chest CHEST: No tenderness Resp: COMMON NORMALS: clear to auscultation bilaterally EFFORT & INSPECTION: No tachypneic, No respiratory distress, No retractions, No uses accessory muscles and No tracheal deviation AUSCULTATION: clear to auscultation bilaterally, no rhonchi, no wheezes and lung sounds not diminished Cardio: COMMON NORMALS: regular rate and regular rhythm RATE: regular rate RHYTHM: regular rhythm HEART SOUNDS: no murmurs PERIPHERAL PULSES: radial pulses present GI: INSPECTION: No abdominal distension AUSCULTATION: No Hyperactive bowel sounds present and No Hypoactive bowel sounds present PALPATION: No Guarding due to palpation present (GI) and No Rigid due to palpation PERCUSSION: no dullness to percussion and no tympanic to percussion Neuro: SENSORIUM/ORIENTATION: Yes oriented to person, Yes oriented to place and Yes oriented to time Psych: COMMON NORMALS: mental status grossly normal Skin: COMMON NORMALS: no rashes or lesions noted GENERAL SKIN EXAM: no rashes or lesions noted Course Consultations: Consultation #1: Andrea Time: 10:36 Vital Signs: Vital signs: Vital Signs Temperature 98 F 10/31/19 00:46 Pulse Rate 89 10/31/19 00:46 Respiratory Rate 24 H 10/31/19 00:46 Blood Pressure 121/94 10/31/19 01:15 Pulse Oximetry 96 10/31/19 01:15 MDM - Chest Pain MDM Narrative: Medical decision making narrative: 49-year-old female. STEMI alert called from the field, as there was elevations in leads II, III, and aVF on EKG in the field in combination with chest pain and shortness of breath. In the field, she was given aspirin, nitroglycerin x2, which dropped her blood pressure, and Zofran. She arrives in stable condition, but in pain. Blood pressures was in the 120s to 130s systolic. She was given morphine. She was also given Brilinta, heparin, and morphine. Spoke with cardiology prior to the patient's arrival, and the School Speech Language Pathologist was activated. She went to the lab in stable condition. Lab Data: Labs: Lab Results 10/30/19 10/30/19 10/30/19 Range/Units 22:50 22:50 22:50 WBC 13.6 H (4.0-10.0) 10^3/ uL RBC 4.84 (4.1-5.3) 10^6/u L Hgb 14.7 (11.5-15.3) g/dL Hct 44.6 (37.0-47.0) % MCV 92.1 (81-99) fL MCH 30.4 (28.0-34.0) pg MCHC 33.0 (30.0-36.0) g/dL RDW 13.0 (12.1-15.1) % Plt Count 278 (130-400) 10^3/c mm MPV 10.9 H (7.4-10.4) fL Neut % (Auto) 55.0 % Lymph % (Auto) 35.1 % Hemphill % (Auto) 5.8 % Eos % (Auto) 2.9 % Baso % (Auto) 0.4 % Neut # (Auto) 7.45 (1.8-7.7) 10^3/u L Lymph # (Auto) 4.8 (0.8-4.8) 10^3/u L Hemphill # (Auto) 0.8 (0.2-0.9) 10^3/u L Eos # (Auto) 0.4 (0.0-0.8) 10^3/u L Baso # (Auto) 0.1 (0.0-0.1) 10^3/u L Nucleated RBC % (a uto) 0 % Nucleated RBCs # 0.0 /100WBC PT 12.30 (12.1-14.9) SECO NDS INR 0.89 (0.8-1.2) APTT 24.4 (23.9-36.7) SECO NDS Sodium 134 L (136-145) mmol/L Potassium 4.0 (3.5-5.1) mmol/L Chloride 96 L (98-107) mmol/L Carbon Dioxide 26 (22-29) mmol/L Anion Gap 16.0 (5-19) BUN 14 (6-20) mg/dL Creatinine 0.7 (0.5-0.9) mg/dL GFR Calculation 89.7 L (90-130) mL/min Glucose 277 H (65-115) mg/dL Calculated Osmolal ity 284 L (285-295) mOsm/k g Calcium 9.3 (8.5-10.5) mg/dL Total Bilirubin 0.7 (0.15-1.2) mg/dL AST 23 (0-32) U/L ALT 61 H (0-33) U/L Alkaline Phosphata se 133 H (35-105) IU/L Creatine Kinase 59 (26-192) U/L Troponin T Baselin e (0-10) ng/L NT-Pro-B Natriuret Pep 61 (0-125) pg/mL Total Protein 6.9 (6.6-8.7) g/dL Albumin 4.3 (3.5-5.2) g/dL Globulin 2.6 (1.3-4.6) g/dL 10/30/19 Range/Units 22:50 WBC (4.0-10.0) 10^3/ uL RBC (4.1-5.3) 10^6/u L Hgb (11.5-15.3) g/dL Hct (37.0-47.0) % MCV (81-99) fL MCH (28.0-34.0) pg MCHC (30.0-36.0) g/dL RDW (12.1-15.1) % Plt Count (130-400) 10^3/c mm MPV (7.4-10.4) fL Neut % (Auto) % Lymph % (Auto) % Hemphill % (Auto) % Eos % (Auto) % Baso % (Auto) % Neut # (Auto) (1.8-7.7) 10^3/u L Lymph # (Auto) (0.8-4.8) 10^3/u L Hemphill # (Auto) (0.2-0.9) 10^3/u L Eos # (Auto) (0.0-0.8) 10^3/u L Baso # (Auto) (0.0-0.1) 10^3/u L Nucleated RBC % (a uto) % Nucleated RBCs # /100WBC PT (12.1-14.9) SECO NDS INR (0.8-1.2) APTT (23.9-36.7) SECO NDS Sodium (136-145) mmol/L Potassium (3.5-5.1) mmol/L Chloride (98-107) mmol/L Carbon Dioxide (22-29) mmol/L Anion Gap (5-19) BUN (6-20) mg/dL Creatinine (0.5-0.9) mg/dL GFR Calculation (90-130) mL/min Glucose (65-115) mg/dL Calculated Osmolal ity (285-295) mOsm/k g Calcium (8.5-10.5) mg/dL Total Bilirubin (0.15-1.2) mg/dL AST (0-32) U/L ALT (0-33) U/L Alkaline Phosphata se (35-105) IU/L Creatine Kinase (26-192) U/L Troponin T Baselin e 24 H (0-10) ng/L NT-Pro-B Natriuret Pep (0-125) pg/mL Total Protein (6.6-8.7) g/dL Albumin (3.5-5.2) g/dL Globulin (1.3-4.6) g/dL Discharge Plan Discharge Patient Disposition: Admitted As Inpatient Admit Provider: Souleymane Mendez Clinical Impression: ST elevation (STEMI) myocardial infarction Qualifiers: Involved coronary artery: right coronary artery Qualified Code(s): I21.11 - ST elevation (STEMI) myocardial infarction involving right coronary artery Condition: Stable Referrals: Wilmer Wilkins DO [Primary Care Provider] - Coding Level of Care Code ED Housekeeper And Laundry Assistant for [facility] Fwd Exam Comprehensive
--- NOTE | 2019-10-31 01:29 | PC.NURSE ---
Patient received from laboratory miller ~0030. Patient s/p [facility] with PCIx2. Dr Mendez in to see patient. Patient up to bathroom. Patient has TR band in place to right wrist with 16ml of air instilled. No s/s of bleeding or hematoma formation observed. Instructed patient on site care and restrictions. Patient verbalized understanding. Discussed possible need for cardiac rehab, new medications, holding metformin, and use of sliding scale insulin while inpatient Patient again verbalized complete understanding. Patient unable to give me a name of one visitor at this time stating, that is a hard decision since I can only have one. Patient continues to c/o of chest pain 6/10 and feeling very nervous. Administered hydrocodone and xanax as ordered by Dr Mendez.
--- NOTE | 2019-10-31 03:59 | PC.NURSE ---
Initiated TR band removal at 0200 removing 2ml of air every 15-20min until all air removed. TR band removed at this time. Covered with 2x2 and bio-occlusive dressing. No s/s of bleeding or hematoma formation observed. Reinforced site care instructions and restrictions. Patient verbalized complete understanding. Patient also reports feeling mostly pain free at this time. No distress observed.
[2019-10-31 05:27] LABS: Basophils % 0.3 %; Eosinophils % 0.2 %; Hematocrit 41.3 % (37.0-47.0); Hemoglobin 13.3 g/dL (11.5-15.3); Lymphocytes # 1.6 10^3/uL (0.8-4.8); Lymphocytes % 11.5 %; Mean Corpuscular HGB Conc 32.2 g/dL (30.0-36.0); Mean Corpuscular Hemoglobin 29.6 pg (28.0-34.0); Mean Corpuscular Volume 91.8 fL (81-99); Mean Platelet Volume 11.2 fL (7.4-10.4); Monocytes # 0.3 10^3/uL (0.2-0.9); Monocytes % 2.5 %; Neutrophils # 11.52 10^3/uL (1.8-7.7); Neutrophils % 84.8 %; Nucleated Red Blood Cells % 0 %; Platelet Count 235 10^3/cmm (130-400); White Blood Count 13.6 10^3/uL (4.0-10.0)
[2019-10-31 06:00] LABS: Blood Urea Nitrogen 12 mg/dL (6-20); Carbon Dioxide 24 mmol/L (22-29); Chloride 97 mmol/L (98-107); Chol HDL Ratio 7.67 mg/dL (0.0-4.40); Cholesterol 230 mg/dL (0-200); Glomerular Filtration Rate 76.9 mL/min (90-130); Glucose 329 mg/dL (65-115); HDL Cholesterol 30 mg/dL (60-100); LDL Cholesterol Calculated 157 mg/dL (50-129); LDL HDL Ratio 5.23 RATIO (0.00-3.22); Osmolality Calculated 279 mOsm/kg (285-295); Sodium 130 mmol/L (136-145); Triglycerides 213 mg/dL (0-150)
[2019-10-31 06:17] LABS: Anion Gap 13.4 (5-19); Potassium 4.4 mmol/L (3.5-5.1)
[2019-10-31 07:45] LABS: Glucose Point of Care 266 mg/dL (70-110)
[2019-10-31] MEDS: ticagrelor 90 mg Tablet PO ×2 (08:17→17:03)
[2019-10-31] MEDS: pantoprazole DR 40 mg Tablet PO (08:17)
[2019-10-31] MEDS: aspirin 81 mg EC Tablet PO (08:17)
[2019-10-31 11:41] LABS: Glucose Point of Care 244 mg/dL (70-110)
--- NOTE | 2019-10-31 12:16 | USCV_ITS ---
Rimma White Age: 49 Gender: F : 1970 Exam Date: 10/31/2019 08:27 Ordering Phys: Souleymane Mendez MD ([email or web address]) Technologist: Delmar Florentino Exam Location[place] [facility] [place]ication: STEMI BP: 123 / 85 HR: 80 Rhythm: Sinus Technical Quality: MEASUREMENTS (Male / Female) Normal Values 2D ECHO LV Diastolic Diameter PLAX 4.6 cm 4.2 - 5.9 / 3.9 - 5.3 cm LV Systolic Diameter PLAX 3.6 cm IVS Diastolic Thickness 0.8 cm 0.6 - 1.0 / 0.6 - 0.9 cm IVS Systolic Thickness 1.3 cm LVPW Diastolic Thickness 1.3 cm 0.6 - 1.0 / 0.6 - 0.9 cm LVPW Systolic Thickness 1.3 cm LVOT Diameter 2.0 cm LV Ejection Fraction 2D Teich 43.1 % LV Ejection Fraction MOD 2C 66.4 % LV Ejection Fraction 2C AL 67.8 % LA Diameter 5.0 cm LA Width 4.4 cm LA Height 4.8 cm RA Width 4.6 cm RA Height 4.9 cm M-MODE LV Diastolic Diameter MM 5.1 cm 4.2 - 5.9 / 3.9 - 5.3 cm LV Systolic Diameter MM 3.1 cm LV Ejection Fraction MM Teich 69.9 % IVS Diastolic Thickness MM 0.8 cm 0.6 - 1.0 / 0.6 - 0.9 cm IVS Systolic Thickness MM 1.8 cm LVPW Diastolic Thickness MM 1.3 cm 0.6 - 1.0 / 0.6 - 0.9 cm LVPW Systolic Thickness MM 1.8 cm RV Diastolic Diameter MM 2.0 cm Aortic Annulus Diameter 2.9 cm LA Ao Ratio MM 1.7 MV E Point Septal Separation 0.7 cm DOPPLER AV Peak Velocity 132.0 cm/s LVOT Peak Velocity 86.0 cm/s AV Area Cont Eq vti 2.2 cm squared AV Area Cont Eq pk 2.1 cm squared MV Area PHT 5.4 cm squared Mitral E to A Ratio 0.9 MV E' Velocity 10.0 cm/s Mitral E to MV E' Ratio 9.1 Mitral E to LV E' Lateral Ratio 7.7 Mitral E to LV E' Septal Ratio 11.3 TR Peak Velocity 137.0 cm/s TR Peak Gradient 7.6 mmHg TV Peak E Velocity 69.0 cm/s Right Atrial Pressure 3.0 mmHg Pulmonary Artery Systolic Pressu 10.5 mmHg PV Peak Velocity 82.0 cm/s FINDINGS Left Ventricle Possibly normal LV size ejection fraction of around 65%. Segmental wall motion analysis difficult. No gross wall motion normalities noted Right Ventricle Possibly normal size and ejection fraction Right Atrium Right atrium not well visualized. Left Atrium Possibly of normal size Mitral Valve No gross abnormalities noted Aortic Valve No gross abnormalities noted. Tricuspid Valve Could not be visualized well . Pulmonic Valve Could not be visualized well Pericardium No pericardial effusion. Aorta Normal aortic annulus size. CONCLUSIONS Possibly normal LV size ejection fraction of around 65%. Segmental wall motion analysis difficult. No gross wall motion normalities noted. Right ventricle appears to be of normal size ejection fraction. Possibly normal left atrial size. Possibly no significant stenotic or regurgitant lesions There is no pericardial effusion. Technically difficult study because of the poor ultrasonic window. Comparison with the previous study is difficult because of the difference in the technical quality. Dr Ileana Espinal MD FACC (Electronically Signed) Final Date: 31 October 2019 18:21 S
--- NOTE | 2019-10-31 13:28 | P.PN_ITS ---
Subjective Subjective: Interval history: Denies any more chest pain. She had 5 beats run of VT on telemetry. She is very short of breath and appear to be volume overloaded. Vitals/I&O/Wt Last Vital Signs Temp 97.8 F 10/31/19 08:00 Pulse 86 10/31/19 08:00 Resp 20 H 10/31/19 08:00 BP 123/85 10/31/19 08:00 Pulse Ox 94 10/31/19 08:00 Weight last 48 hrs Weight 302 lb 3.2 oz Weight 300 lb Physical Exam Narrative: EXAM NARRATIVE: GENERAL: Patient is alert, awake and oriented x3. NECK: No jugular vein distension. HEENT: No cyanosis. No icterus. No pallor. HEART: Regular S1 and S2. No murmur, rub or gallop. LUNGS: Clear to auscultate bilaterally. ABDOMEN: Soft, nontender and nondistended. Positive bowel sounds. No guarding, rebound or tenderness. CENTRAL NERVOUS SYSTEM: Grossly nonfocal. EXTREMITIES: Lower extremities with 1+ edema bilaterally. Data : 10/31/19 05:10 10/31/19 05:10 A&P Assessment and plan (1) ST elevation (STEMI) myocardial infarction: Status post drug-eluting stent to mid left circumflex which is the culprit vessel and mid RCA which is incidental finding but significant vessel. Due to instability and low blood pressure we treated both. Patient was loaded with Brilinta continue aspirin 81 mg along with Brilinta. Statin was added. I will add beta-kary and KEVIN inhibitor. Will ask for echocardiogram to assess ejection fraction. Status: Acute Qualifiers: Involved coronary artery: right coronary artery Qualified Code(s): I21.11 - ST elevation (STEMI) myocardial infarction involving right coronary artery (2) CHF (congestive heart failure): Appear to be in decompensated diastolic heart failure will give IV Lasix. Status: Acute Qualifiers: Heart failure type: diastolic Heart failure chronicity: chronic Qualified Code(s): I50.32 - Chronic diastolic (congestive) heart failure (3) Diabetes: Sliding scale insulin given. Status: Acute Qualifiers: Diabetes mellitus type: type 2 (4) Obesity: Advised to lose weight Status: Acute (5) Tobacco abuse: Discussed in detail regarding quitting smoking. Status: Acute Attestations Medical Necessity Statement*: Require continuation hospitalization for above defined care. 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
[2019-10-31] MEDS: enoxaparin 40 mg/0.4 mL Syringe SUBCUT (13:35)
--- NOTE | 2019-10-31 13:44 | ECG_ITS ---
[facility] Test Date: 2019-10-31 Pat Name: Rimma White Department: Room: 111 Gender: Female Scrap Bunch Maker: : 1970 Requested By: Souleymane Mendez Order Number: [id number] Lottie MD: lIeana Espinal M.D. Measurements Intervals [place] Rate: 84 P: 63 NM: 196 QRS: 15 QRSD: 94 T: -46 QT: 385 QTc: 456 Interpretive Statements SINUS RHYTHM POSSIBLE INFERIOR MYOCARDIAL INFARCTION [30 ms Q WAVE IN II/aVF], OF INDETERMINATE AGE Compared to ECG 10/30/2019 22:54:46 ST (T wave) deviation no longer present Myocardial infarct finding still present Electronically Signed On 11-01-2019 0:20:19 CDT by Ileana Espinal M.D. [email or web address]
--- NOTE | 2019-10-31 14:00 | PC.NURSE ---
chest pain/pressure Pt stated she is having achy, pressure like pain on her chest. EKG taken, 1 SL nitro given and relieved her pain. noted wheezing. pt stated she had asthma and use inhaler. IV lasix given 40 mg once and Metoprolol XL 12.5 mg as ordered by Dr. Mendez. Will keep monitoring.
[2019-10-31] MEDS: FUROsemide 10 mg/mL SDV 4mL 40 MG IVP (14:06)
[2019-10-31] MEDS: metoprolol succinate ER (24 HR) 25 mg Tablet 12.5 MG PO (14:08)
[2019-10-31] MEDS: potassium chloride ER 10 mEq Tablet 20 MEQ PO (14:10)
[2019-10-31 16:43] LABS: Glucose Point of Care 229 mg/dL (70-110)
[2019-10-31 20:55] LABS: Glucose Point of Care 299 mg/dL (70-110)
[2019-11-01] VITALS: BP 120/76; PULSE 71; RESP 19; O2SAT 95
[2019-11-01 04:00] VITALS: BP 135/95; PULSE 83; RESP 19; TEMP 36.7; O2SAT 95
--- NOTE | 2019-11-01 07:00 | PC.NURSE ---
PT IS RESTING IN BED AT THIS TIME. PT DENIES PAIN. RIGHT WRIST DRESSING C/D/I. VS WNL. WILL CONTINUE TO MONITOR.
[2019-11-01 07:10] LABS: Glucose Point of Care 275 mg/dL (70-110)
--- NOTE | 2019-11-01 07:19 | PC.NURSE ---
Patient resting in bed at time of assessment. Patient denies any chest pain or SOB overnight. No needs identified at this time.
[2019-11-01 08:00] VITALS: BP 131/74; PULSE 81; RESP 21; TEMP 37.1; O2SAT 97
[2019-11-01] MEDS: lisinopril 2.5 mg Tablet PO (09:16)
[2019-11-01] MEDS: aspirin 81 mg EC Tablet PO (09:16)
[2019-11-01] MEDS: metoprolol succinate ER (24 HR) 25 mg Tablet 12.5 MG PO (09:16)
[2019-11-01] MEDS: pantoprazole DR 40 mg Tablet PO (09:17)
[2019-11-01] MEDS: ticagrelor 90 mg Tablet PO (09:17)
--- NOTE | 2019-11-01 10:30 | PC.NURSE ---
Patient ambulating in hallway, tolerated activity well.
[2019-11-01 12:11] LABS: Glucose Point of Care 308 mg/dL (70-110)
[2019-11-01] MEDS: enoxaparin 40 mg/0.4 mL Syringe SUBCUT (12:45)
--- NOTE | 2019-11-01 13:38 | PM.DCS ---
Discharge Providers Date of Admission: 10/31/19 00:31 Date of Discharge: November 01, 2019 Attending Provider at Admission: Souleymane Mendez MD Attending Provider at Discharge: Souleymane Mendez MD Primary Care Provider: Wilmer Wilkins DO Diagnoses at Discharge Discharge Diagnosis (1) ST elevation (STEMI) myocardial infarction: Status: Acute Qualifiers: Involved coronary artery: right coronary artery Qualified Code(s): I21.11 - ST elevation (STEMI) myocardial infarction involving right coronary artery (2) CHF (congestive heart failure): Status: Acute Qualifiers: Heart failure chronicity: chronic Heart failure type: diastolic Qualified Code(s): I50.32 - Chronic diastolic (congestive) heart failure (3) Diabetes: Status: Acute Qualifiers: Diabetes mellitus type: type 2 (4) Obesity: Status: Acute (5) Tobacco abuse: Status: Acute Reason for Visit Reason for Visit: STEMI Hospital Course Discharge Summary: 49-year-old female past medical history significant for uncontrolled diabetes mellitus, hypertension, hyperlipidemia, obesity and continues tobacco abuse came in with chest pain. Twelve-lead EKG was consistent with inferolateral ST elevation. He was she was taken to the [facility] she was found to have significant mid left circumflex which was a dominant vessel lesion, it was the culprit vessel as well at the same time she was also noted to have significant mid RCA which is nondominant lesion. Both lesions were treated with drug-eluting stents. Over next 24 to 48 hours her medicines were optimized. She was volume overloaded given IV Lasix. She is on Brilinta aspirin statin beta-kary and KEVIN inhibitor. Overall she is doing much better. She is chest pain-free she is walking around without any problem. Right wrist wound looks good. She would like to be discharged. We will discharge her home she is going to follow-up with cardiology in 7 to 10 days. Physical Exam Narrative: EXAM NARRATIVE: GENERAL: Patient is alert, awake and oriented x3. NECK: No jugular vein distension. HEENT: No cyanosis. No icterus. No pallor. HEART: Regular S1 and S2. No murmur, rub or gallop. LUNGS: Clear to auscultate bilaterally. ABDOMEN: Soft, nontender and nondistended. Positive bowel sounds. No guarding, rebound or tenderness. CENTRAL NERVOUS SYSTEM: Grossly nonfocal. EXTREMITIES: Lower extremities without edema bilaterally. Const: COMMON NORMALS: alert Resp: COMMON NORMALS: clear to auscultation bilaterally AUSCULTATION: clear to auscultation bilaterally Neuro: SENSORIUM/ORIENTATION: Yes alert Discharge Data Data Completed and Pending: Completed Studies During Hospitalization Category Date Time Status CV echo complete* [id number] Routine Ultrasound 10/31/19 12:16 Completed Pending at discharge Category Date Time Status PROFESSOR OF COMMUNICATION AND WRITING request for service Stat Exams 10/30/19 23:04 Taken Labs from last 24 hours 11/01/19 11/01/19 10/31/19 11:00 07:05 20:52 POC Glucose 308 275 299 10/31/19 16:42 POC Glucose 229 Vitals: Last Vital Signs Temp 98.7 F 11/01/19 08:00 Pulse 81 11/01/19 08:00 Resp 21 H 11/01/19 08:00 BP 131/74 11/01/19 08:00 Pulse Ox 97 11/01/19 08:00 Discharge Plan Discharge Patient Disposition: Home Condition: Stable Prescriptions: New atorvastatin 40 mg Tablet 80 mg PO BEDTIME Qty: 90 RF: 4 aspirin 81 mg Tablet,Delayed Release (Dr/Ec) 81 mg PO DAILY Qty: 90 RF: 4 pantoprazole 40 mg Tablet,Delayed Release (Dr/Ec) 40 mg PO DAILY Qty: 30 RF: 4 metoprolol succinate 25 mg Tablet Extended Release 24 Hr 12.5 mg PO DAILY Qty: 30 RF: 4 lisinopril 2.5 mg Tablet 2.5 mg PO DAILY Qty: 30 RF: 4 Brilinta 90 mg Tablet 90 mg PO BID Qty: 180 RF: 4 Continued ondansetron HCl [Zofran] 4 mg tablet 4 mg PO Q6H PRN (Reason: nausea and vomiting) Qty: 14 RF: 0 metformin 500 mg Tablet 500 mg PO BID RF: 0 Discharge Orders: Discharge Order (Routine); Ordered 11/01/19 Ordered By: Souleymane Mendez Referrals: Souleymane Mendez MD [Physician] - (You have a cardiology followup with Dr. Mendez at [facility] on December 02 at 11:15am) Celia Vicente FNP [Nurse Practitioner] - 1 week (You have a post procedure followup with CARLOTTA Le at [facility] on November 03 at 8:15am) Wilmer Wilkins, [Primary Care Provider] - 4-7 days (Please follow up with Dr. Wilkins on November at 10:30 am. If you are unable to keep this appointment please call . ) Discharge Diet: Diabetic Discharge Activity: Increase activity as tolerated Patient Instructions: Metoprolol (By mouth), Lisinopril (By mouth), Aspirin (By mouth), Atorvastatin (By mouth), Pantoprazole (By mouth), Ticagrelor (By mouth), Left Heart Catheterization (DC), Coronary Angioplasty (DC), Post Angiogram Home Care Instructions Activity Restrictions/Additional Instructions: Follow-up with Celia Vicente in 7 days. Follow-up with Dr. Mendez in 4 to 6 weeks. Discharge Date/Time: 11/01/19 15:13 Discharge Attestations Time Spent in Discharge Care*: less than 30 min Quality Metrics Clinical Quality Measures During this hospital stay, did patient experience: None Coding Level of Care Code New Pt Acute Automatic Serging Machine Operator for Chg Fwd Patient Type New History Comprehensive Exam Comprehensive Medical Decision Making High Complexity Diagnoses ST elevation (STEMI) myocardial infarction I21.11 Involved coronary artery: right coronary artery CHF (congestive heart failure) I50.32 Heart failure chronicity: chronic Heart failure type: diastolic Diabetes E11.9 Diabetes mellitus type: type 2 Obesity E66.9 Tobacco abuse Z72.0
[2019-11-01 14:22] VITALS: BP 131/74; PULSE 81; RESP 21; TEMP 37.1; O2SAT 97
--- NOTE | 2019-11-01 14:30 | PC.NURSE ---
Discharge instructions given per the physician's orders. Patient verbalized understanding and did not have any further questions. IVs have been removed. Patient dressed self. Medications have been delivered to room. Family has been contacted for ride home. No needs identified at this time.
== END 2019-11-01 15:13 | disposition home or self-care (01) | DRG 247 ==
LOC: ER 23:18 → CSU 10-31 00:41
PROVIDERS: Emergency Medicine; Admitting Provider Internal Medicine Cardiovascular Disease; PCP Internal Medicine; Visit Provider Internal Medicine Cardiovascular Disease
PROC: 027135Z Dilation of Coronary Artery, Two Arteries with Two Drug-eluting Intraluminal Devices, Percutaneous Approach (ICD-10-PCS; principal; 2019-10-30 22:45)
PROC: 027135Z Dilation of Coronary Artery, Two Arteries with Two Drug-eluting Intraluminal Devices, Percutaneous Approach (ICD-10-PCS; 2019-10-30 22:45)
DX: I21.19 ST elevation (STEMI) myocardial infarction involving other coronary artery of inferior wall (principal); I50.32 Chronic diastolic (congestive) heart failure; Z68.43 Body mass index [BMI] 50.0-59.9, adult; E11.9 Type 2 diabetes mellitus without complications; I11.0 Hypertensive heart disease with heart failure; E78.5 Hyperlipidemia, unspecified; E66.9 Obesity, unspecified; F17.210 Nicotine dependence, cigarettes, uncomplicated; Z79.84 Long term (current) use of oral hypoglycemic drugs
CPT/HCPCS: 12345; 36415; 36416; 80048; 80053; 80061; 82550; 82962; 83880; 84484; 85025; 85347; 85610; 85730; 93005; 93306; 93454; 96372; 96375; 99283; C1769; C1874; C1887; C1894; C9601; C9606; J0461; J1644; J1650; J1815; J1940; J2250; J2270; J3010; J3246; J3490; J7030; Q9967

== ENCOUNTER 2020-02-21 13:12 | Emergency (ER) | payer BC, SELFPAY ==
[2020-02-21 13:36] VITALS: BP 177/85; PULSE 105; RESP 14; TEMP 36.8; O2SAT 96; BMI 49.4
--- NOTE | 2020-02-21 13:41 | XRR_ITS ---
PROCEDURE INFORMATION: Exam: XR Chest, 1 View Exam date and time: 02/21/2020 1:47 PM Age: 49 years old Clinical indication: Shortness of breath; Additional info: SOB TECHNIQUE: Imaging protocol: XR of the chest Views: 1 view. COMPARISON: CR Chest 1 [place] [id number] 09/29/2018 1:45 PM FINDINGS: Lungs: Unremarkable. No consolidation. Pleural space: Unremarkable. No pleural effusion. No pneumothorax. Heart/Mediastinum: Unremarkable. No cardiomegaly. Bones/joints: Unremarkable. No interval changes are seen comparing to prior examination. XR/XR chest 1V portable [id number] IMPRESSION: No acute findings.
--- NOTE | 2020-02-21 16:51 | ECG_ITS ---
[facility] Test Date: 2020-02-21 Pat Name: Rimma White Department: Room: Gender: Female Asw/Asuw Tactical Air Controller: : 1970 Requested By: Juarez Mcclain Order Number: [id number] Lottie MD: Rachana Fields M.D. Measurements Intervals [place] Rate: 98 P: 58 NM: 172 QRS: 32 QRSD: 97 T: 50 QT: 335 QTc: 429 Interpretive Statements SINUS RHYTHM LOW QRS VOLTAGE IN PRECORDIAL LEADS [QRS DEFLECTION < 1.0 mV IN CHEST LEADS] POSSIBLE ANTERIOR MYOCARDIAL INFARCTION , PROBABLY OLD [30 ms Q WAVE IN V3/V4, OR R < 0.2 mV IN V4] Compared to ECG 10/31/2019 13:52:30 Low QRS voltage now present Myocardial infarct finding still present Electronically Signed On 02-21-2020 20:09:55 INTERN ARCHITECT by Rachana Fields M.D. [id number]
--- NOTE | 2020-02-21 16:53 | W.ED.SOB ---
Documented by User: Juarez Triana DO 02/22/20 08:38 HPI - SOB/Dyspnea General: Chief Complaint: Shortness of Breath/Dyspnea Stated Complaint: SOB/BUMP ON FOOT Time Seen by Provider: 02/21/20 16:25 History of Present Illness: HPI Narrative: 49-year-old female with a history of coronary disease previously had a left main stented she comes in complaining of shortness of breath with productive cough. To 3 weeks ago she was tested for Covid which was negative. She continues to have shortness of breath and productive cough despite having been on a course of antibiotics. She denies fever. MD elicited complaint: shortness of breath and cough Pertinent past history: diabetes and other (CAD) Onset (ago): week(s) Timing: constant Severity: moderate Exacerbating factors: exertion Relieving factors: rest Known history of: congestive heart failure Associated symptoms: Reports chest congestion and cough; Deny abdominal pain, chest pain, diaphoresis, dizziness, extremity pain, fever(s), hemoptysis, lightheadedness, myalgias, nausea, orthopnea, palpitations, paresthesias, polydipsia, polyuria, rash, sense of impending doom, syncope or vomiting Review of Systems Const: Denies: fever(s) or diaphoresis ENMT: Denies: throat pain, ear or mastoid pain, nasal discharge or nasal congestion Card: Denies: palpitations, lightheadedness, syncope or orthopnea Resp: Reports: non-productive cough, wheezing and chest congestion; Denies: hemoptysis GI: Denies: abdominal pain, nausea or vomiting : Denies: flank pain, difficulty voiding, dysuria, urinary frequency or urinary urgency Musc: Denies: extremity pain Skin/Breast: Denies: rash or pruritus Neuro: Denies: dizziness Endo: Denies: polyuria or polydipsia PFSH ED PFSH: Medical History Coronary artery disease Diabetes Hypertension Obesity Social History Smoking and tobacco status: current every day smoker Physical Exam Const: COMMON NORMALS: no acute distress GENERAL APPEARANCE: cooperative and comfortable ORIENTATION/CONSCIOUSNESS: Yes awake, Yes oriented to person, Yes oriented to place and Yes oriented to time HENMT: COMMON NORMALS: normocephalic, atraumatic and hearing grossly normal bilaterally HEAD & SCALP: normocephalic and atraumatic Neck/C-Spine: COMMON NORMALS: no JVD Resp: COMMON NORMALS: normal respiratory effort, No retractions, No use of accessory muscles and clear to auscultation bilaterally AUSCULTATION: clear to auscultation bilaterally Cardio: COMMON NORMALS: no JVD, regular rate, regular rhythm and No murmurs present (Cardio) RATE: regular rate RHYTHM: regular rhythm GI: COMMON NORMALS: Soft to palpation and No hepatosplenomegaly present AUSCULTATION: Yes normoactive bowel sounds PALPATION: Yes Soft to palpation, No Tenderness to palpation present (GI), No Guarding due to palpation present (GI) and Yes No hepatosplenomegaly present Extremity: COMMON NORMALS: normal to inspection, capillary refill normal, no clubbing, cyanosis or edema, no calf tenderness and no pedal edema Neuro: SENSORIUM/ORIENTATION: Yes oriented to person, Yes oriented to place and Yes oriented to time Skin: COMMON NORMALS: no rashes or lesions noted GENERAL SKIN EXAM: no rashes or lesions noted Course Vital Signs: Vital signs: Vital Signs Temperature 98.2 F 02/21/20 13:36 Pulse Rate 99 02/21/20 18:42 Respiratory Rate 21 H 02/21/20 18:42 Blood Pressure 150/97 02/21/20 18:42 Pulse Oximetry 93 02/21/20 17:57 MDM - SOB/Dyspnea MDM Narrative: Medical decision making narrative: Care turned over to Dr. Jacobs at change of shift, see his notes for final diagnosis and disposition. Lab Data: Labs: Lab Results 02/21/20 02/21/20 02/21/20 Range/Units 17:30 17:30 17:30 WBC 9.8 (4.0-10.0) 10^3/ uL RBC 4.52 (4.1-5.3) 10^6/u L Hgb 13.5 (11.5-15.3) g/dL Hct 40.8 (37.0-47.0) % MCV 90.3 (81-99) fL MCH 29.9 (28.0-34.0) pg MCHC 33.1 (30.0-36.0) g/dL RDW 13.2 (12.1-15.1) % Plt Count 232 (130-400) 10^3/c mm MPV 11.5 H (7.4-10.4) fL Neut % (Auto) 61.1 % Lymph % (Auto) 30.4 % [place] % (Auto) 3.9 % Eos % (Auto) 3.7 % Baso % (Auto) 0.6 % Neut # (Auto) 5.97 (1.8-7.7) 10^3/u L Lymph # (Auto) 3.0 (0.8-4.8) 10^3/u L Mif[place]in # (Auto) 0.4 (0.2-0.9) 10^3/u L Eos # (Auto) 0.4 (0.0-0.8) 10^3/u L Baso # (Auto) 0.1 (0.0-0.1) 10^3/u L Nucleated RBC % (a uto) 0 % Nucleated RBCs # 0.0 /100WBC Sodium 140 (136-145) mmol/L Potassium 3.4 L (3.5-5.1) mmol/L Chloride 108 H (98-107) mmol/L Carbon Dioxide 21 L (22-29) mmol/L Anion Gap 14.4 (5-19) BUN 7 (6-20) mg/dL Creatinine 0.5 (0.5-0.9) mg/dL GFR Calculation 132.2 H (90-130) mL/min Glucose 160 H (65-115) mg/dL Calculated Osmolal ity 291 (285-295) mOsm/k g Calcium 7.7 L (8.5-10.5) mg/dL Total Bilirubin 0.6 (0.15-1.2) mg/dL AST 14 (0-32) U/L ALT 34 H (0-33) U/L Alkaline Phosphata se 137 H (35-105) IU/L Troponin T Baselin e 10 (0-10) ng/L NT-Pro-B Natriuret Pep 69 (0-125) pg/mL Total Protein 5.2 L (6.6-8.7) g/dL Albumin 3.4 L (3.5-5.2) g/dL Globulin 1.8 (1.3-4.6) g/dL Discharge Plan Discharge Patient Disposition: Home Clinical Impression: Bronchitis Condition: Stable Prescriptions: New prednisone 50 mg tablet 50 mg PO DAILY Qty: 5 RF: 0 Keflex 500 mg capsule 500 mg PO Q6H 7 Days Qty: 28 RF: 0 No Action fluoxetine 40 mg capsule 40 mg PO DAILY@15 RF: 0 alprazolam 0.25 mg tablet 0.5 mg PO BID PRN (Reason: anxiety) RF: 0 lisinopril 10 mg tablet 10 mg PO DAILY@15 RF: 0 metformin 1,000 mg tablet 1,000 mg PO BID@ RF: 0 glipizide 5 mg Tablet Extended Release 24hr 5 mg PO DAILY@15 RF: 0 budesonide-formoterol 160-4.5 mcg/actuation HFA aerosol inhaler 1 puff INHALATION BID@ RF: 0 atorvastatin 40 mg tablet 80 mg PO DAILY@15 RF: 0 aspirin 81 mg tablet,delayed release (DR/EC) 81 mg PO DAILY@15 RF: 0 pantoprazole 40 mg tablet,delayed release (DR/EC) 40 mg PO DAILY@15 RF: 0 metoprolol succinate 25 mg tablet extended release 24 hr 12.5 mg PO DAILY@15 RF: 0 Brilinta 90 mg tablet 90 mg PO BID@ RF: 0 Discharge Orders: Discharge ED (Routine); Ordered 02/21/20 Ordered By: Emmy Jacobs Referrals: Wilmer Wilkins DO [Primary Care Provider] - 1-3 days Discharge Diet: Advance as tolerated Discharge Activity: Resume usual activity Patient Instructions: Acute Bronchitis (ED) Coding Level of Care Code ED Boiler Installer for [facility] Fwd Exam Comprehensive Documented by User: Emmy Jacobs MD 02/21/20 18:51 HPI - SOB/Dyspnea General: Chief Complaint: Shortness of Breath/Dyspnea Stated Complaint: SOB/BUMP ON FOOT Time Seen by Provider: 02/21/20 16:25 History of Present Illness: Associated symptoms: Deny abdominal pain, chest pain, fever(s), nausea or vomiting Review of Systems Const: Denies: fever(s), chills, body aches or change in appetite Eyes: Denies: blurry vision or eye discomfort ENMT: Denies: throat pain or dental pain Card: Denies: chest pain Resp: Reports: dyspnea and wheezing GI: Denies: abdominal pain, nausea, vomiting or diarrhea : Denies: dysuria Musc: Denies: neck pain or back pain Skin/Breast: Denies: rash Neuro: Denies: headache(s) Psych: Denies: depression Coy/Lymph: Denies: easy bruising All/Imm: Denies: urticaria PFSH ED PFSH: Medical History Coronary artery disease Diabetes Hypertension Obesity Social History Smoking and tobacco status: current every day smoker Physical Exam Const: COMMON NORMALS: no acute distress, patient oriented x3 and healthy appearing HENMT: COMMON NORMALS: normocephalic and atraumatic HEAD & SCALP: normocephalic and atraumatic Eye: COMMON NORMALS: Equal, round and reactive pupils present and EOMs intact bilaterally PUPIL: Yes Equal, round and reactive pupils present Neck/C-Spine: COMMON NORMALS: full ROM and supple Chest: COMMONS NORMALS: normal inspection of the chest and normal palpation of entire chest wall Resp: COMMON NORMALS: normal respiratory effort, No retractions and No use of accessory muscles AUSCULTATION: wheezes Cardio: COMMON NORMALS: regular rate, regular rhythm and No murmurs present (Cardio) RATE: regular rate RHYTHM: regular rhythm GI: COMMON NORMALS: Normal to inspection, nondistended, normoactive bowel sounds present, Soft to palpation, non-tender and no masses PALPATION: Yes Soft to palpation Extremity: COMMON NORMALS: normal to inspection and full ROM Neuro: COMMON NORMALS: patient oriented x3, moves all extremities and no focal motor deficits Psych: COMMON NORMALS: mental status grossly normal, Normal thought process present and cooperative THOUGHT PROCESS: Normal thought process present Skin: COMMON NORMALS: no rashes or lesions noted and no wounds GENERAL SKIN EXAM: no rashes or lesions noted Course Vital Signs: Vital signs: Vital Signs Temperature 98.2 F 02/21/20 13:36 Pulse Rate 99 02/21/20 18:42 Respiratory Rate 21 H 02/21/20 18:42 Blood Pressure 150/97 02/21/20 18:42 Pulse Oximetry 93 02/21/20 17:57 MDM - SOB/Dyspnea MDM Narrative: Medical decision making narrative: Rimma presents here with cough wheezing and likely bronchitis. She does not have a device engineer and will set her up with 1. We will give her Decadron and Keflex. Patient's blood work here is normal EKG and x-ray are normal no signs of large pneumonia. She has no signs of pulmonary embolism. She is stable for discharge and is to follow-up with PCP in 3 to 5 days return if worsening. Lab Data: Labs: Lab Results 02/21/20 02/21/20 02/21/20 Range/Units 17:30 17:30 17:30 WBC 9.8 (4.0-10.0) 10^3/ uL RBC 4.52 (4.1-5.3) 10^6/u L Hgb 13.5 (11.5-15.3) g/dL Hct 40.8 (37.0-47.0) % MCV 90.3 (81-99) fL MCH 29.9 (28.0-34.0) pg MCHC 33.1 (30.0-36.0) g/dL RDW 13.2 (12.1-15.1) % Plt Count 232 (130-400) 10^3/c mm MPV 11.5 H (7.4-10.4) fL Neut % (Auto) 61.1 % Lymph % (Auto) 30.4 % [place] % (Auto) 3.9 % Eos % (Auto) 3.7 % Baso % (Auto) 0.6 % Neut # (Auto) 5.97 (1.8-7.7) 10^3/u L Lymph # (Auto) 3.0 (0.8-4.8) 10^3/u L [place] # (Auto) 0.4 (0.2-0.9) 10^3/u L Eos # (Auto) 0.4 (0.0-0.8) 10^3/u L Baso # (Auto) 0.1 (0.0-0.1) 10^3/u L Nucleated RBC % (a uto) 0 % Nucleated RBCs # 0.0 /100WBC Sodium 140 (136-145) mmol/L Potassium 3.4 L (3.5-5.1) mmol/L Chloride 108 H (98-107) mmol/L Carbon Dioxide 21 L (22-29) mmol/L Anion Gap 14.4 (5-19) BUN 7 (6-20) mg/dL Creatinine 0.5 (0.5-0.9) mg/dL GFR Calculation 132.2 H (90-130) mL/min Glucose 160 H (65-115) mg/dL Calculated Osmolal ity 291 (285-295) mOsm/k g Calcium 7.7 L (8.5-10.5) mg/dL Total Bilirubin 0.6 (0.15-1.2) mg/dL AST 14 (0-32) U/L ALT 34 H (0-33) U/L Alkaline Phosphata se 137 H (35-105) IU/L Troponin T Baselin e 10 (0-10) ng/L NT-Pro-B Natriuret Pep 69 (0-125) pg/mL Total Protein 5.2 L (6.6-8.7) g/dL Albumin 3.4 L (3.5-5.2) g/dL Globulin 1.8 (1.3-4.6) g/dL Imaging Data^: CXR: Attestation: I personally reviewed and interpreted this imaging study as follows: Radiologist's impression: [address] [address] XRay Report Signed Patient: Rimma White Unit #: [id number] : 1970 Age/Sex: 49 / F ADM Date: 02/21/20 Loc: ER Room/Bed: Attending Dr: Ordering Provider/Ordering MD: Mervat Gould DO Date of Service: 02/21/20 Procedure(s): XR chest 1V portable [id number] Accession Number(s): [id number] Report Number: [id number] PROCEDURE INFORMATION: Exam: XR Chest, 1 View Exam date and time: 02/21/2020 1:47 PM Age: 49 years old Clinical indication: Shortness of breath; Additional info: SOB TECHNIQUE: Imaging protocol: XR of the chest Views: 1 view. COMPARISON: CR Chest 1 [place] [id number] 09/29/2018 1:45 PM FINDINGS: Lungs: Unremarkable. No consolidation. Pleural space: Unremarkable. No pleural effusion. No pneumothorax. Heart/Mediastinum: Unremarkable. No cardiomegaly. Bones/joints: Unremarkable. No interval changes are seen comparing to prior examination. XR/XR chest 1V portable [id number] IMPRESSION: No acute findings. EKG Data^: EKG 1: Attestation: I personally reviewed and interpreted this EKG as follows: EKG Interpretation Date: 02/21/20 EKG interpretation time: 17:20 Interpretation: nsr hr [address] or t wave abnormalities qrs 97 qtc 391 Discharge Plan Discharge Patient Disposition: Home Clinical Impression: Bronchitis Condition: Stable Prescriptions: New prednisone 50 mg tablet 50 mg PO DAILY Qty: 5 RF: 0 Keflex 500 mg capsule 500 mg PO Q6H 7 Days Qty: 28 RF: 0 No Action fluoxetine 40 mg capsule 40 mg PO DAILY@15 RF: 0 alprazolam 0.25 mg tablet 0.5 mg PO BID PRN (Reason: anxiety) RF: 0 lisinopril 10 mg tablet 10 mg PO DAILY@15 RF: 0 metformin 1,000 mg tablet 1,000 mg PO BID@15,22 RF: 0 glipizide 5 mg Tablet Extended Release 24hr 5 mg PO DAILY@15 RF: 0 budesonide-formoterol 160-4.5 mcg/actuation HFA aerosol inhaler 1 puff INHALATION BID@15,22 RF: 0 atorvastatin 40 mg tablet 80 mg PO DAILY@15 RF: 0 aspirin 81 mg tablet,delayed release (DR/EC) 81 mg PO DAILY@15 RF: 0 pantoprazole 40 mg tablet,delayed release (DR/EC) 40 mg PO DAILY@15 RF: 0 metoprolol succinate 25 mg tablet extended release 24 hr 12.5 mg PO DAILY@15 RF: 0 Brilinta 90 mg tablet 90 mg PO BID@15,22 RF: 0 Discharge Orders: Discharge ED (Routine); Ordered 02/21/20 Ordered By: Emmy Jacobs Referrals: Wilmer Wilkins DO [Primary Care Provider] - 1-3 days Discharge Diet: Advance as tolerated Discharge Activity: Resume usual activity Patient Instructions: Acute Bronchitis (ED) Coding Level of Care Code ED Boiler Installer for Chg Fwd Exam Comprehensive
[2020-02-21 17:40] LABS: Basophils # 0.1 10^3/uL (0.0-0.1); Basophils % 0.6 %; Eosinophils # 0.4 10^3/uL (0.0-0.8); Eosinophils % 3.7 %; Hematocrit 40.8 % (37.0-47.0); Hemoglobin 13.5 g/dL (11.5-15.3); Lymphocytes % 30.4 %; Mean Corpuscular HGB Conc 33.1 g/dL (30.0-36.0); Mean Corpuscular Hemoglobin 29.9 pg (28.0-34.0); Mean Corpuscular Volume 90.3 fL (81-99); Mean Platelet Volume 11.5 fL (7.4-10.4); Monocytes # 0.4 10^3/uL (0.2-0.9); Monocytes % 3.9 %; Neutrophils # 5.97 10^3/uL (1.8-7.7); Neutrophils % 61.1 %; Nucleated Red Blood Cells % 0 %; Platelet Count 232 10^3/cmm (130-400); Red Blood Count 4.52 10^6/uL (4.1-5.3); Red Cell Distribution Width 13.2 % (12.1-15.1); White Blood Count 9.8 10^3/uL (4.0-10.0)
[2020-02-21 17:57] VITALS: PULSE 99; RESP 18; O2SAT 93
[2020-02-21 18:05] LABS: Troponin(5th) Baseline 10 ng/L (0-10)
[2020-02-21 18:14] LABS: Alanine Aminotransferase 34 U/L (0-33); Albumin Level 3.4 g/dL (3.5-5.2); Alkaline Phosphatase 137 IU/L (35-105); Blood Urea Nitrogen 7 mg/dL (6-20); Calcium 7.7 mg/dL (8.5-10.5); Carbon Dioxide 21 mmol/L (22-29); Chloride 108 mmol/L (98-107); Globulin 1.8 g/dL (1.3-4.6); Glomerular Filtration Rate 132.2 mL/min (90-130); Glucose 160 mg/dL (65-115); NT Pro B Type Natriuretic Pept 69 pg/mL (0-125); Osmolality Calculated 291 mOsm/kg (285-295); Sodium 140 mmol/L (136-145); Total Bilirubin 0.6 mg/dL (0.15-1.2); Total Protein 5.2 g/dL (6.6-8.7)
[2020-02-21 18:16] LABS: Anion Gap 14.4 (5-19); Aspartate Amino Transferase 14 U/L (0-32); Potassium 3.4 mmol/L (3.5-5.1)
[2020-02-21 18:42] VITALS: BP 150/97; PULSE 99; RESP 21
--- NOTE | 2020-02-24 10:35 | DCPLANNER ---
slot operations manager had message to schedule a followup appointment for patient with pulmonology. slot operations manager called heart care, left a message to Jessenia that a follow up appointment was needed.
--- NOTE | 2020-03-01 13:23 | DCPLANNER ---
manager erp called [facility], spoke with Jessenia, gave clinic patients information. A follow up appointment was scheduled for Sunday, March 08, 2020 at 11:[address] Donnelly. manager erp called patient and gave patient the appointment information.
--- NOTE | 2020-03-23 14:30 | DCPLANNER ---
Patient had a follow up appointment scheduled for 03.08.20 with pulmonology - patient did attend appointment.
== END 2020-02-21 18:42 | disposition home or self-care (01) ==
PROVIDERS: Family Medicine; Emergency Provider Emergency Medicine; PCP Internal Medicine
DX: J40 Bronchitis, not specified as acute or chronic (principal); Z79.82 Long term (current) use of aspirin; Z79.84 Long term (current) use of oral hypoglycemic drugs; I25.10 Atherosclerotic heart disease of native coronary artery without angina pectoris; E11.9 Type 2 diabetes mellitus without complications; I10 Essential (primary) hypertension; F17.210 Nicotine dependence, cigarettes, uncomplicated
CPT/HCPCS: 12345; 71045; 80053; 83880; 84484; 85025; 93005; 99282; 99283

== ENCOUNTER 2020-10-12 15:00 | Emergency (ER) | payer BC, SELFPAY ==
[2020-10-12] VITALS (7 sets, daily range): BP systolic 116–168; BP diastolic 58–97; PULSE 86–109; RESP 16–18; TEMP 36.4–36.6; O2SAT 95–98; BMI 52.7
--- NOTE | 2020-10-12 15:03 | ECG_ITS ---
[facility] Test Date: 2020-10-12 Pat Name: Rimma White Department: Room: Gender: Female Senior Net Developer: : 1970 Requested By: Emmy Jacobs Order Number: [id number] Reading MD: JASON CARMICHAEL Measurements Intervals [place] Rate: 100 P: 51 OK: 174 QRS: 13 QRSD: 90 T: 56 QT: 363 QTc: 469 Interpretive Statements SINUS TACHYCARDIA LOW QRS VOLTAGE IN PRECORDIAL LEADS [QRS DEFLECTION < 1.0 mV IN CHEST LEADS] ANTERIOR MYOCARDIAL INFARCTION [40+ ms Q WAVE AND/OR ST/T ABNORMALITY IN V3/V4], PROBABLY OLD Compared to ECG 02/21/2020 17:20:46 Sinus rhythm no longer present Myocardial infarct finding still present Electronically Signed On 10-12-2020 21:22:07 CDT by JASON CARMICHAEL [id number]
[2020-10-12 16:30] LABS: Glucose Point of Care 203 mg/dL (70-110)
--- NOTE | 2020-10-12 17:24 | PC.NURSE ---
Assumed care of patient at 1715, vitals taked patient up to restroom and back without incident
--- NOTE | 2020-10-12 17:40 | CTR_ITS ---
PROCEDURE INFORMATION: Exam: CT Abdomen And Pelvis With Contrast Exam date and time: 10/12/2020 5:40 PM Age: 50 years old Clinical indication: Abdominal pain; Localized; Left lower quadrant (llq); Prior surgery; Surgery type: Hernia, hyst; Additional info: HX of diverticulitis and stones, L flank/llq pain TECHNIQUE: Imaging protocol: Computed tomography of the abdomen and pelvis with contrast. Radiation optimization: All CT scans at this facility use at least one of these dose optimization techniques: automated exposure control; mA and/or kV adjustment per patient size (includes targeted exams where dose is matched to clinical indication); or iterative reconstruction. Contrast material: OMNI 300; Contrast volume: 95 ml; Contrast route: INTRAVENOUS (IV); COMPARISON: CT kidney stone [id number] 05/22/2019 1:19 PM RADIATION DOSE METRICS: Total DLP (mGy-cm): 1786.72 FINDINGS: Mediastinal space: A small hiatal hernia is present. Liver: The liver is mildly enlarged. No parenchymal lesion is seen. Gallbladder and bile ducts: Normal. No calcified stones. No ductal dilation. Pancreas: Normal. No ductal dilation. Spleen: Normal. No splenomegaly. Adrenal glands: Normal. No mass. Kidneys and ureters: Normal. No hydronephrosis. Stomach and bowel: Mild proximal sigmoid colon diverticulitis is appreciated. No intestinal obstruction. Appendix: The appendix is normal. Intraperitoneal space: Unremarkable. No free air. No significant fluid collection. Vasculature: Atherosclerotic calcific changes are seen in the abdominal aorta and iliac arteries. Prominent calcification causes severe stenosis of the distal abdominal aorta. No aneurysm. Lymph nodes: Unremarkable. No enlarged lymph nodes. Urinary bladder: Unremarkable as visualized. Reproductive: The uterus is absent. The ovaries appear normal. Bones/joints: Unremarkable. No acute fracture. Soft tissues: Unremarkable. CT/CT abdomen pelvis w con* [id number] IMPRESSION: 1. Mild sigmoid diverticulitis. 2. Atherosclerosis and severe stenosis of the distal abdominal aorta. No aneurysm. 3. Mild hepatomegaly. 4. Small hiatal hernia. Radiation Dose CTDIVOL = (mGy): DLP = 1786.72 (mGy-cm)
--- NOTE | 2020-10-12 17:52 | W.ED.GENADLT ---
HPI - General Adult General: Chief complaint: Abdominal Pain Stated complaint: Nausea, dizzy, weak, Time Seen by Provider: 10/12/20 17:17 History of Present Illness: HPI narrative: HPI: 50yo patient w/ hx of recurrent diverticulitis (last diverticulitis flare was over8 years ago requiring IV ABX) presenting to the ED with new onset of LLQ abd pain x 2 days. Denies fever/chill. vomiting, inability to tolerate PO, hematochezia/melena or diarrhea. NO complications from diverticulitis requiring surgical management in the past. Pain is very similar to prior presentation of diverticulitis. Has a history of kidney stone and prior abdominal hernia status post mesh repair. Denies any urinary symptoms. Onset: 2 days ago Duration: ongoing Location: LLQ abdomen Severity: moderate Review of Systems Narrative: Constitutional: No fever, no chills. HEENT: No vision changes CV: No chest pain, no palpitations PULM: No cough, no dyspnea. GI: +LLQ abdominal pain, +N/-V/-D. : No dysuria MSKEL: No edema SKIN: No new rashes, no lesions. NEURO: No headache, no focal weakness. HEME: No visible bruises PSYCH: Normal mood PFSH ED PFSH: Medical History Coronary artery disease Diabetes Diastolic heart failure Hypertension Obesity Social History Smoking and tobacco status: current every day smoker Alcohol intake: current Alcohol intake frequency: holidays/special occasions only Physical Exam Narrative: EXAM NARRATIVE: Head: Atraumatic Eyes: PERRL, conjunctiva without injection ENT: Mucous membrane moist NECK: Supple without lymphadenopathy LUNGS: CTA CV: RRR ABDOMEN: Soft, +LLQ TTP, no other focal tenderness to palpation, no Gandhi?s sign, no Rovsing?s sign, no Obturator?s sign, no McBurney?s point tenderness, no guarding or rebound tenderness, no CVA/flank/suprapubic tenderness EXTREMITY: Normal ROM SKIN: No rash or erythema NEURO: Awake and alert. No focal motor deficits. PSYCH: Normal mood and affect. Course Vital Signs: Vital signs: Vital Signs Temperature 97.6 F 10/12/20 20:09 Pulse Rate 86 10/12/20 20:09 Respiratory Rate 18 10/12/20 20:09 Blood Pressure 121/85 10/12/20 20:09 Pulse Oximetry 97 10/12/20 20:09 MDM - General Adult MDM Narrative: Medical decision making narrative: [50]yo patient w/ hx of recurrently diverticulitis presenting to the ED with LLQ abdominal pain x 2days with similar diverticulitis pain. On exam, the patient has LLQ abdominal tenderness without rebound or guarding. Workup: CBC, BMP, Lipase, UA reflex culture, CT abdomen+pelvis w/ contrast CT findings: diverticulitis without diverticular abscess [time] On reassessment, patient continues to HDS. Pain well-controlled and in no acute distress. In the ED, the patient has been able to tolerate PO and ambulate without difficulties. I have discussed the findings diverticulitis on labs and CT with the patient and offered admission. However, the patient verbalizes feeling better and a desire to go home. I have extensively reviewed the risks of going home including worsening of symptoms, formation of diverticular abscess, potential need for surgical management, an overwhelming infection which lead to significant co-morbidities and even . Patient continues to reiterate the desire to go home and verbalizes understanding of the risks. Patient received the first dose of augmentin 875mg in the ED. At this time, I do not respect patient?s symptoms that are not typical for other emergent causes of abdominal pain such as, but not limited to, appendicitis, abdominal aortic aneurysm, surgical biliary disease, acute coronary syndrome, etc. Rx: Augmentin 875 mg PO BID x 7 days Disposition: Discharge/ Patient will be discharged with strict return precautions and follow up with primary MD within 12-24 hours for further evaluation. Patient verbalizes understanding that an admission with IV antibiotics and possibly surgery if the patient does not improve with oral antibiotics. Patient is given strict return instructions for any worsening pain, fever/chill, dehydration or inability to tolerate PO or any new or concerning issues while taking the antibiotics. Lab Data: Labs: Lab Results 10/12/20 10/12/20 10/12/20 Range/Units 15:25 17:30 17:30 WBC 11.4 H (4.0-10.0) 10^3/ uL RBC 4.94 (4.1-5.3) 10^6/u L Hgb 14.8 (11.5-15.3) g/dL Hct 44.7 (37.0-47.0) % MCV 90.5 (81-99) fL MCH 30.0 (28.0-34.0) pg MCHC 33.1 (30.0-36.0) g/dL RDW 12.8 (12.1-15.1) % Plt Count 277 (130-400) 10^3/c mm MPV 11.4 H (7.4-10.4) fL Neut % (Auto) 66.4 % Lymph % (Auto) 24.7 % [place] % (Auto) 5.3 % Eos % (Auto) 2.5 % Baso % (Auto) 0.7 % Neut # (Auto) 7.58 (1.8-7.7) 10^3/u L Lymph # (Auto) 2.8 (0.8-4.8) 10^3/u L [place] # (Auto) 0.6 (0.2-0.9) 10^3/u L Eos # (Auto) 0.3 (0.0-0.8) 10^3/u L Baso # (Auto) 0.1 (0.0-0.1) 10^3/u L Nucleated RBC % (a uto) 0 % Nucleated RBCs # 0.0 /100WBC Sodium 135 L (136-145) mmol/L Potassium 4.6 (3.5-5.1) mmol/L Chloride 98 (98-107) mmol/L Carbon Dioxide 22 (22-29) mmol/L Anion Gap 19.6 H (5-19) BUN 8 (6-20) mg/dL Creatinine 0.7 (0.5-0.9) mg/dL GFR Calculation 89.3 L (90-130) mL/min Glucose 184 H (65-115) mg/dL POC Glucose 203 H (70-110) mg/dL Calculated Osmolal ity 283 L (285-295) mOsm/k g Calcium 8.9 (8.5-10.5) mg/dL Total Bilirubin 1.0 (0.15-1.2) mg/dL AST 38 H (0-32) U/L ALT 62 H (0-33) U/L Alkaline Phosphata se 165 H (35-105) IU/L Total Protein 6.9 (6.6-8.7) g/dL Albumin 4.4 (3.5-5.2) g/dL Globulin 2.5 (1.3-4.6) g/dL Lipase (13-60) U/L Urine Color (Yellow) Urine Appearance (CLEAR) Urine pH (5-7) Ur Specific Gravit y (1.005-1.030) Urine Protein (Negative) Urine Glucose (UA) (Normal) Urine Ketones (Negative) Urine Blood (Negative) Urine Nitrate (Negative) Urine Bilirubin (Negative) Urine Urobilinogen (Negative) mg/dL Ur Leukocyte Cathie ase (Negative) 10/12/20 10/12/20 Range/Units 17:30 17:30 WBC (4.0-10.0) 10^3/ uL RBC (4.1-5.3) 10^6/u L Hgb (11.5-15.3) g/dL Hct (37.0-47.0) % MCV (81-99) fL MCH (28.0-34.0) pg MCHC (30.0-36.0) g/dL RDW (12.1-15.1) % Plt Count (130-400) 10^3/c mm MPV (7.4-10.4) fL Neut % (Auto) % Lymph % (Auto) % [place] % (Auto) % Eos % (Auto) % Baso % (Auto) % Neut # (Auto) (1.8-7.7) 10^3/u L Lymph # (Auto) (0.8-4.8) 10^3/u L [place] # (Auto) (0.2-0.9) 10^3/u L Eos # (Auto) (0.0-0.8) 10^3/u L Baso # (Auto) (0.0-0.1) 10^3/u L Nucleated RBC % (a uto) % Nucleated RBCs # /100WBC Sodium (136-145) mmol/L Potassium (3.5-5.1) mmol/L Chloride (98-107) mmol/L Carbon Dioxide (22-29) mmol/L Anion Gap (5-19) BUN (6-20) mg/dL Creatinine (0.5-0.9) mg/dL GFR Calculation (90-130) mL/min Glucose (65-115) mg/dL POC Glucose (70-110) mg/dL Calculated Osmolal ity (285-295) mOsm/k g Calcium (8.5-10.5) mg/dL Total Bilirubin (0.15-1.2) mg/dL AST (0-32) U/L ALT (0-33) U/L Alkaline Phosphata se (35-105) IU/L Total Protein (6.6-8.7) g/dL Albumin (3.5-5.2) g/dL Globulin (1.3-4.6) g/dL Lipase 30 (13-60) U/L Urine Color Yellow (Yellow) Urine Appearance Clear (CLEAR) Urine pH 5 (5-7) Ur Specific Gravit y 1.015 (1.005-1.030) Urine Protein Neg (Negative) Urine Glucose (UA) 4+ H (Normal) Urine Ketones Negative (Negative) Urine Blood Neg (Negative) Urine Nitrate Negative (Negative) Urine Bilirubin Neg (Negative) Urine Urobilinogen 1 H (Negative) mg/dL Ur Leukocyte Cathie ase Negative (Negative) Discharge Plan Discharge Patient Disposition: Home Clinical Impression: Diverticulitis Condition: Stable Prescriptions: New Augmentin 875-125 mg tablet 1 tab PO BID PRN (Reason: diverticulitis) 10 Days Qty: 20 RF: 0 No Action fluoxetine 40 mg capsule 40 mg PO DAILY@15 RF: 0 alprazolam 0.25 mg tablet 0.5 mg PO BID PRN (Reason: anxiety) RF: 0 lisinopril 10 mg tablet 10 mg PO DAILY@15 RF: 0 metformin 1,000 mg tablet 1,000 mg PO BID@15,22 RF: 0 nitroglycerin [Nitrostat] 0.4 mg tablet, sublingual 0.4 mg sublingual Q5M PRN (Reason: chest pain) Qty: 25 RF: 3 potassium chloride 20 mEq tablet extended release 20 meq PO DAILY PRN (Reason: edema) Qty: 30 RF: 3 Jardiance 25 mg tablet 25 mg PO DAILY Qty: 90 RF: 3 pantoprazole 40 mg tablet,delayed release (DR/EC) 40 mg PO DAILY@15 Qty: 90 RF: 3 furosemide 40 mg tablet 40 mg PO DAILY PRN (Reason: edema) Qty: 30 RF: 6 metoprolol succinate 25 mg tablet extended release 24 hr 12.5 mg PO DAILY@15 Qty: 45 RF: 3 budesonide-formoterol 160-4.5 mcg/actuation HFA aerosol inhaler 1 puff INHALATION BID@, RF: 0 atorvastatin 40 mg tablet 80 mg PO DAILY@15 RF: 0 aspirin 81 mg tablet,delayed release (DR/EC) 81 mg PO DAILY@15 RF: 0 Brilinta 90 mg tablet 90 mg PO BID@, RF: 0 Discharge Orders: Discharge ED (Routine); Ordered 10/12/20 Ordered By: Desean Linares Referrals: Wilmer Wilkins DO [Primary Care Provider] - Discharge Diet: Advance as tolerated and Usual diet Discharge Activity: Resume usual activity Patient Instructions: Diverticulitis (ED) Activity Restrictions/Additional Instructions: Come back to the emergency room if you cannot hold anything down, if you cannot fill your medication, you have any fever or chills, worsening pain, nausea any signs of dehydration or any new or concerning complaints. Coding Level of Care Code ED Data Systems Analyst for Meli Sawant
[2020-10-12 17:54] LABS: Add Urine Microscopic? NO; Charge for UA Resulting for Rev
[2020-10-12 18:10] LABS: Basophils # 0.1 10^3/uL (0.0-0.1); Basophils % 0.7 %; Eosinophils # 0.3 10^3/uL (0.0-0.8); Eosinophils % 2.5 %; Hematocrit 44.7 % (37.0-47.0); Hemoglobin 14.8 g/dL (11.5-15.3); Lymphocytes # 2.8 10^3/uL (0.8-4.8); Lymphocytes % 24.7 %; Mean Corpuscular HGB Conc 33.1 g/dL (30.0-36.0); Mean Corpuscular Volume 90.5 fL (81-99); Mean Platelet Volume 11.4 fL (7.4-10.4); Monocytes # 0.6 10^3/uL (0.2-0.9); Monocytes % 5.3 %; Neutrophils # 7.58 10^3/uL (1.8-7.7); Neutrophils % 66.4 %; Nucleated Red Blood Cells % 0 %; Platelet Count 277 10^3/cmm (130-400); Red Blood Count 4.94 10^6/uL (4.1-5.3); Red Cell Distribution Width 12.8 % (12.1-15.1); White Blood Count 11.4 10^3/uL (4.0-10.0)
[2020-10-12] MEDS: iohexol 300 mg/mL 100 mL Btl IV (18:12)
[2020-10-12 18:24] LABS: Blood Urine Neg (Negative); Glucose Urine UA 4+ (Normal); Ketones Urine Negative (Negative); Protein Urine Neg (Negative); Specific Gravity, Urine 1.015 (1.005-1.030); Urine Appearance Clear (CLEAR); Urine Color Yellow (Yellow); pH Urine 5 (5-7)
[2020-10-12 18:25] LABS: Bilirubin Urine Neg (Negative); Leukocyte Esterase Urine Negative (Negative); Nitrate Urine Negative (Negative); Urobilinogen Urine 1 mg/dL (Negative)
[2020-10-12 18:32] LABS: Lipase 30 U/L (13-60)
[2020-10-12] MEDS: famotidine 20 mg/2 mL INJ IVP (18:32)
[2020-10-12 18:38] LABS: Alanine Aminotransferase 62 U/L (0-33); Albumin Level 4.4 g/dL (3.5-5.2); Alkaline Phosphatase 165 IU/L (35-105); Blood Urea Nitrogen 8 mg/dL (6-20); Calcium 8.9 mg/dL (8.5-10.5); Carbon Dioxide 22 mmol/L (22-29); Chloride 98 mmol/L (98-107); Globulin 2.5 g/dL (1.3-4.6); Glomerular Filtration Rate 89.3 mL/min (90-130); Glucose 184 mg/dL (65-115); Osmolality Calculated 283 mOsm/kg (285-295); Sodium 135 mmol/L (136-145); Total Protein 6.9 g/dL (6.6-8.7)
[2020-10-12 18:41] LABS: Anion Gap 19.6 (5-19); Aspartate Amino Transferase 38 U/L (0-32); Potassium 4.6 mmol/L (3.5-5.1)
[2020-10-12] MEDS: sodium chloride 0.9% 500 ML IV (18:49)
[2020-10-12] MEDS: morphine 4 mg/mL SDV 1 mL IVP (18:49)
[2020-10-12] MEDS: amoxicillin-clav 875-125 mg Tablet 1 TAB PO (19:58)
== END 2020-10-12 20:10 | disposition home or self-care (01) ==
PROVIDERS: Emergency Medicine; Emergency Provider Emergency Medicine; PCP Internal Medicine
DX: K57.32 Diverticulitis of large intestine without perforation or abscess without bleeding (principal); F17.200 Nicotine dependence, unspecified, uncomplicated
CPT/HCPCS: 36416; 74177; 80053; 81003; 82962; 83690; 85025; 93005; 96361; 96374; 96375; 99284; J2270; J3490; J7040; Q9967

== ENCOUNTER 2021-02-11 18:05 | Emergency (ER) | payer BC, SELFPAY ==
[2021-02-11] VITALS (7 sets, daily range): BP systolic 122–175; BP diastolic 67–110; PULSE 54–96; RESP 16–18; TEMP 36.7; O2SAT 93–97; BMI 50.3
--- NOTE | 2021-02-11 18:22 | ECG_ITS ---
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 Measurements Intervals [place] Rate: 88 P: 56 NC: 197 QRS: 25 QRSD: 75 T: 33 QT: 351 QTc: 425 Interpretive Statements SINUS RHYTHM LOW QRS VOLTAGE IN PRECORDIAL LEADS [QRS DEFLECTION < 1.0 mV IN CHEST LEADS] ANTEROSEPTAL MYOCARDIAL INFARCTION , PROBABLY OLD [40+ ms Q WAVE IN V1-V4] INTERPRETATION BASED ON A DEFAULT AGE OF 40 YEARS Compared to ECG 10/12/2020 15:29:36 Sinus tachycardia no longer present Myocardial infarct finding still present Electronically Signed On 02-11-2021 20:13:11 LADIES SUIT OPERATOR by Ileana Espinal M.D. [id number] f
--- NOTE | 2021-02-11 18:22 | XRR_ITS ---
PROCEDURE INFORMATION: Exam: XR Chest Exam date and time: 02/11/2021 6:22 PM Age: 50 years old Clinical indication: Pain; Chest pressure; Additional info: Cp TECHNIQUE: Imaging protocol: XR of the chest. Views: 1 view. Total images: 1 COMPARISON: CR XR chest 1V portable [id number] 02/21/2020 1:43 PM FINDINGS: Lungs: Minimal discoid atelectasis left lung base. No other visible evidence of active interstitial or alveolar airspace disease. Pleural spaces: Unremarkable. No pleural effusion. No pneumothorax. Heart/Mediastinum: Unremarkable. No cardiomegaly. Bones/joints: Unremarkable. Soft tissues: Heavy body habitus. XR/XR chest 1V portable [id number] IMPRESSION: Minimal discoid atelectasis left lung base.
[2021-02-11 18:43] LABS: Basophils # 0.1 10^3/uL (0.0-0.1); Basophils % 0.6 %; Eosinophils # 0.3 10^3/uL (0.0-0.8); Eosinophils % 2.6 %; Hemoglobin 15.5 g/dL (11.5-15.3); Lymphocytes # 2.8 10^3/uL (0.8-4.8); Lymphocytes % 27.5 %; Mean Corpuscular HGB Conc 32.3 g/dL (30.0-36.0); Mean Corpuscular Hemoglobin 29.5 pg (28.0-34.0); Mean Corpuscular Volume 91.4 fl (81-99); Mean Platelet Volume 10.9 fL (7.4-10.4); Monocytes # 0.6 10^3/uL (0.2-0.9); Monocytes % 5.7 %; Neutrophils # 6.47 10^3/uL (1.8-7.7); Nucleated Red Blood Cells % 0 %; Platelet Count 227 10^3/cmm (130-400); Red Blood Count 5.25 10^6/uL (4.1-5.3); Red Cell Distribution Width 13.5 % (12.1-15.1); White Blood Count 10.3 10^3/uL (4.0-10.0)
[2021-02-11 19:09] LABS: Troponin(5th) Baseline 8 ng/L (0-10)
[2021-02-11 19:19] LABS: Alanine Aminotransferase 39 U/L (0-33); Albumin Level 4.4 g/dL (3.5-5.2); Alkaline Phosphatase 132 IU/L (35-105); Anion Gap 19.1 (5-19); Aspartate Amino Transferase 17 U/L (0-32); Blood Urea Nitrogen 8 mg/dL (6-20); Carbon Dioxide 23 mmol/L (22-29); Chloride 99 mmol/L (98-107); Globulin 2.1 g/dL (1.3-4.6); Glomerular Filtration Rate 106.7 mL/min (90-130); Glucose 129 mg/dL (65-115); Lipase 23 U/L (13-60); NT Pro B Type Natriuretic Pept 110 pg/mL (0-125); Osmolality Calculated 284 mOsm/kg (285-295); Potassium 4.1 mmol/L (3.5-5.1); Sodium 137 mmol/L (136-145); Total Bilirubin 0.6 mg/dL (0.15-1.2); Total Protein 6.5 g/dL (6.6-8.7)
[2021-02-11 20:08] LABS: Add Urine Microscopic? NO; Charge for UA Resulting for Rev
[2021-02-11 20:10] LABS: D Dimer 0.32 ug/mIFEU (0-0.59)
[2021-02-11 20:14] LABS: Urine Appearance Clear (CLEAR); Urine Color Yellow (Yellow); pH Urine 5 (5-7)
[2021-02-11 20:15] LABS: Bilirubin Urine Neg (Negative); Blood Urine Neg (Negative); Glucose Urine UA 4+ (Normal); Ketones Urine Negative (Negative); Leukocyte Esterase Urine Negative (Negative); Nitrate Urine Negative (Negative); Protein Urine Neg (Negative); Specific Gravity, Urine 1.015 (1.005-1.030); Urobilinogen Urine Norm (Negative)
--- NOTE | 2021-02-11 20:22 | ECG_ITS ---
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 Measurements Intervals [place] Rate: 87 P: 67 DC: 183 QRS: 55 QRSD: 113 T: 39 QT: 368 QTc: 445 Interpretive Statements SINUS RHYTHM LOW QRS VOLTAGE IN PRECORDIAL LEADS [QRS DEFLECTION < 1.0 mV IN CHEST LEADS] MODERATE INTRAVENTRICULAR CONDUCTION DELAY [110+ ms QRS DURATION] NONSPECIFIC T-WAVE ABNORMALITY Compared to ECG 02/11/2021 18:22:36 Intraventricular conduction delay now present T-wave abnormality now present Myocardial infarct finding no longer present Electronically Signed On 02-11-2021 20:40:27 PROGRAM DEVELOPMENT MANAGER by Ileana Espinal M.D. [id number]
[2021-02-11] MEDS: morphine 4 mg/mL SDV 1 mL IVP (20:41)
[2021-02-11] MEDS: ondansetron 2 mg/ML SDV 2 mL 4 MG IVP (20:41)
[2021-02-11] MEDS: metoprolol tartrate 1 mg/1 mL SDV 5 mL 5 MG IVP (20:41)
[2021-02-11 20:43] LABS: Troponin 5 2HR 7.29 ng/L (0-10)
[2021-02-11 20:49] LABS: Troponin 5 2HR Delta -0.71 ABS# (0-10)
--- NOTE | 2021-02-11 21:11 | W.ED.CHESTPA ---
HPI - Chest Pain General: Chief Complaint: Chest Pain Stated Complaint: Chest Pains Time Seen by Provider: 02/11/21 19:38 History of Present Illness: HPI narrative: 50-year-old female with a history of coronary disease. She has had 2 stents, I believe in her LAD in the past. She presents with day 2 of chest discomfort on and off. She says it hurts in her shoulders as well. She really denies significant short of breath. She has had some nausea. No cough out of the ordinary for her, she is a smoker. She has been taking her medication as prescribed. She says, although she has not checked her blood sugar or blood pressure MD complaint: chest pain Pertinent past history: coronary artery disease and prior NC Onset (ago): day(s) (2) Timing of current episode: episodic Prior episodes: Yes Onset: during rest Pain location: substernal Pain radiation: right arm and left arm Quality: tightness and heaviness Relieving factors: nothing Associated symptoms: Reports leg edema and nausea; Deny abdominal pain, diaphoresis, dyspnea, fever(s), palpitations or vomiting Review of Systems Const: Denies: fever(s) or diaphoresis Card: Denies: palpitations Resp: Denies: dyspnea GI: Reports: nausea; Denies: abdominal pain or vomiting PFS ED PFSH: Medical History (Updated 02/11/21 @ 21:52 by Antonio Clark DO) Asthma Coronary artery disease Diabetes Diastolic heart failure Hypertension Obesity Surgical History (Updated 01/01/21 @ 14:18 by Lew Flores MD) History of umbilical hernia repair Family History Other Hypertension Social History Smoking and tobacco status: current every day smoker Alcohol intake: current Alcohol intake frequency: holidays/special occasions only Physical Exam Const: COMMON NORMALS: no acute distress, patient oriented x3 and alert HENMT: COMMON NORMALS: normocephalic and atraumatic HEAD & SCALP: normocephalic and atraumatic Eye: COMMON NORMALS: Equal, round and reactive pupils present and EOMs intact bilaterally PUPIL: Yes Equal, round and reactive pupils present Chest: COMMONS NORMALS: normal inspection of the chest Resp: COMMON NORMALS: normal respiratory effort, No use of accessory muscles and clear to auscultation bilaterally AUSCULTATION: clear to auscultation bilaterally Cardio: COMMON NORMALS: regular rate, regular rhythm and Peripheral pulses 2+ throughout RATE: regular rate RHYTHM: regular rhythm PERIPHERAL PULSES: Peripheral pulses 2+ throughout GI: COMMON NORMALS: Normal to inspection, nondistended, normoactive bowel sounds present and Soft to palpation PALPATION: Yes Soft to palpation and No Tenderness to palpation present (GI) Neuro: COMMON NORMALS: patient oriented x3 SENSORIUM/ORIENTATION: Yes alert Course Vital Signs: Vital signs: Vital Signs Temperature 98.1 F 02/11/21 18:31 Pulse Rate 87 02/11/21 21:32 Respiratory Rate 16 02/11/21 21:32 Blood Pressure 154/92 02/11/21 21:32 Pulse Oximetry 94 02/11/21 21:32 MDM - Chest Pain MDM Narrative: Medical decision making narrative: Currently pain-free after morphine and Zofran. Saturations are 95%. She is nontachycardic. Her D-dimer is negative. EKG showed a sinus rhythm with a QRS duration of 113, mild IV conduction delay. [place] is normal. She has no acute ST change. Rate is 87 white blood cell count is 10. Hemoglobin is 15. BMP is normal. Troponin was 8 and did not change. Chest x-ray showed some discoid atelectasis. Patient counseled on laboratory. She does have a history. She does not necessarily want to stay in the hospital. With 2 - troponins I think it is okay for her to go home, but will have her follow-up with cardiology. Lab Data: Labs: Lab Results 02/11/21 02/11/21 02/11/21 18:34 18:34 18:34 WBC 10.3 10^3/uL H 10 ^3/uL (4.0-10.0) RBC 5.25 10^6/uL 10^6 /uL (4.1-5.3) Hgb 15.5 g/dL H g/dL (11.5-15.3) Hct 48.0 % H % (37.0-47.0) MCV 91.4 fl fl (81-99) MCH 29.5 pg pg (28.0-34.0) MCHC 32.3 g/dL g/dL (30.0-36.0) RDW 13.5 % % (12.1-15.1) Plt Count 227 10^3/cmm 10^3 /cmm (130-400) MPV 10.9 fL H fL (7.4-10.4) Neut % (Auto) 63.0 % % Lymph % (Auto) 27.5 % % [place] % (Auto) 5.7 % % Eos % (Auto) 2.6 % % Baso % (Auto) 0.6 % % Neut # (Auto) 6.47 10^3/uL 10^3 /uL (1.8-7.7) Lymph # (Auto) 2.8 10^3/uL 10^3/ uL (0.8-4.8) [place] # (Auto) 0.6 10^3/uL 10^3/ uL (0.2-0.9) Eos # (Auto) 0.3 10^3/uL 10^3/ uL (0.0-0.8) Baso # (Auto) 0.1 10^3/uL 10^3/ uL (0.0-0.1) Nucleated RBC % (a uto) 0 % % Nucleated RBCs # 0.0 /100WBC /100W BC D-Dimer Sodium 137 mmol/L mmol/L (136-145) Potassium 4.1 mmol/L mmol/L (3.5-5.1) Chloride 99 mmol/L mmol/L (98-107) Carbon Dioxide 23 mmol/L mmol/L (22-29) Anion Gap 19.1 H (5-19) BUN 8 mg/dL mg/dL (6-20) Creatinine 0.6 mg/dL mg/dL (0.5-0.9) GFR Calculation 106.7 mL/min mL/m in (90-130) Glucose 129 mg/dL H mg/dL (65-115) Calculated Osmolal ity 284 mOsm/kg L mOs m/kg (285-295) Calcium 9.0 mg/dL mg/dL (8.5-10.5) Total Bilirubin 0.6 mg/dL mg/dL (0.15-1.2) AST 17 U/L U/L (0-32) ALT 39 U/L H U/L (0-33) Alkaline Phosphata se 132 IU/L H IU/L (35-105) Troponin T Baselin e 8 ng/L ng/L (0-10) Troponin T 120 Min gerardo Delta Troponin T NT-Pro-B Natriuret Pep 110 pg/mL pg/mL (0-125) Total Protein 6.5 g/dL L g/dL (6.6-8.7) Albumin 4.4 g/dL g/dL (3.5-5.2) Globulin 2.1 g/dL g/dL (1.3-4.6) Lipase 23 U/L U/L (13-60) Urine Color Urine Appearance Urine pH Ur Specific Gravit y Urine Protein Urine Glucose (UA) Urine Ketones Urine Blood Urine Nitrate Urine Bilirubin Urine Urobilinogen Ur Leukocyte Cathie ase 02/11/21 02/11/21 02/11/21 18:34 19:50 20:15 WBC RBC Hgb Hct MCV MCH MCHC RDW Plt Count MPV Neut % (Auto) Lymph % (Auto) [place] % (Auto) Eos % (Auto) Baso % (Auto) Neut # (Auto) Lymph # (Auto) [place] # (Auto) Eos # (Auto) Baso # (Auto) Nucleated RBC % (a uto) Nucleated RBCs # D-Dimer 0.32 ug/mIFEU ug/ mIFEU (0-0.59) Sodium Potassium Chloride Carbon Dioxide Anion Gap BUN Creatinine GFR Calculation Glucose Calculated Osmolal ity Calcium Total Bilirubin AST ALT Alkaline Phosphata se Troponin T Baselin e Troponin T 120 Min gerardo 7.29 ng/L ng/L (0-10) Delta Troponin T -0.71 ABS# L ABS# (0-10) NT-Pro-B Natriuret Pep Total Protein Albumin Globulin Lipase Urine Color Yellow (Yellow) Urine Appearance Clear (CLEAR) Urine pH 5 (5-7) Ur Specific Gravit y 1.015 (1.005-1.030) Urine Protein Neg (Negative) Urine Glucose (UA) 4+ H (Normal) Urine Ketones Negative (Negative) Urine Blood Neg (Negative) Urine Nitrate Negative (Negative) Urine Bilirubin Neg (Negative) Urine Urobilinogen Norm mg/dL mg/dL (Negative) Ur Leukocyte Cathie ase Negative (Negative) Discharge Plan Discharge Patient Disposition: Home Clinical Impression: Chest pain Qualifiers: Chest pain type: unspecified Qualified Code(s): R07.9 - Chest pain, unspecified Condition: Stable Prescriptions: No Action fluoxetine 40 mg capsule 40 mg PO DAILY@15 RF: 0 alprazolam 0.25 mg tablet 0.5 mg PO BID PRN (Reason: anxiety) RF: 0 lisinopril 10 mg tablet 10 mg PO DAILY@15 RF: 0 metformin 1,000 mg tablet 1,000 mg PO BID@15,22 RF: 0 nitroglycerin [Nitrostat] 0.4 mg tablet, sublingual 0.4 mg sublingual Q5M PRN (Reason: chest pain) Qty: 25 RF: 3 potassium chloride 20 mEq tablet extended release 20 meq PO DAILY PRN (Reason: edema) Qty: 30 RF: 3 Jardiance 25 mg tablet 25 mg PO DAILY Qty: 90 RF: 3 fluconazole 150 mg tablet 150 mg PO DAILY Qty: 1 RF: 0 pantoprazole 40 mg tablet,delayed release (DR/EC) 40 mg PO DAILY@15 Qty: 90 RF: 3 furosemide 40 mg tablet 40 mg PO DAILY PRN (Reason: edema) Qty: 30 RF: 6 metoprolol succinate 25 mg tablet extended release 24 hr 12.5 mg PO DAILY@15 Qty: 45 RF: 3 Brilinta 90 mg tablet See Rx Instructions .ROUTE .COMPLEX Qty: 180 RF: 0 atorvastatin 80 mg tablet See Rx Instructions .ROUTE .COMPLEX Qty: 90 RF: 0 budesonide-formoterol 160-4.5 mcg/actuation HFA aerosol inhaler 1 puff INHALATION BID@15,22 RF: 0 aspirin 81 mg tablet,delayed release (DR/EC) 81 mg PO DAILY@15 RF: 0 Discharge Orders: Discharge ED (Routine); Ordered 02/11/21 Ordered By: Antonio Clark Referrals: Souleymane Mendez MD [Physician] - Wilmer Wilkins DO [Primary Care Provider] - Patient Instructions: Chest Pain (ED) Activity Restrictions/Additional Instructions: A case management referral back to cardiology for follow-up has been made for you. Increase your metoprolol dosage to 1 full pill once daily, and check your blood pressures twice daily. Report numbers to your physician. Return immediately to the emergency room for any return of chest pain, shortness of breath, cough, fever, sputum production, increasing leg swelling, any other concerning symptoms. Coding Level of Care Code ED Field Crop Farmworker for Chg Fwd Exam Detailed
--- NOTE | 2021-02-13 07:39 | DCPLANNER ---
accreditation manager had message to schedule a follow up appointment for patient with [facility]. accreditation manager called [facility], spoke with Jessenia Santiago, gave clinic patients information. A follow up appointment was scheduled for Friday, February 19, 2021 at 10:45 with DEVELOPER [employer], Celia Vicente. accreditation manager called patient and gave patient the appointment information. Patient stated that she would attend the appointment.
--- NOTE | 2021-02-23 12:10 | DCPLANNER ---
Patient had a follow up appointment scheduled with [facility] - patient did attend appointment.
== END 2021-02-11 22:21 | disposition home or self-care (01) ==
PROVIDERS: Physician Assistant; Emergency Provider Emergency Medicine; PCP Internal Medicine
DX: R07.9 Chest pain, unspecified (principal); Z79.84 Long term (current) use of oral hypoglycemic drugs; Z79.82 Long term (current) use of aspirin; I25.10 Atherosclerotic heart disease of native coronary artery without angina pectoris; E11.9 Type 2 diabetes mellitus without complications; I11.0 Hypertensive heart disease with heart failure; I50.30 Unspecified diastolic (congestive) heart failure; F17.210 Nicotine dependence, cigarettes, uncomplicated
CPT/HCPCS: 36415; 71045; 80053; 81003; 83690; 83880; 84484; 85025; 85378; 93005; 96374; 96375; 99284; J2270; J2405; J3490

== ENCOUNTER 2021-03-31 15:14 | Emergency (ER) | payer BC, SELFPAY ==
[2021-03-31 15:31] VITALS: BP 182/79; PULSE 101; RESP 16; TEMP 36.7; O2SAT 95
--- NOTE | 2021-03-31 18:21 | CTR_ITS ---
PROCEDURE INFORMATION: Exam: CT Abdomen And Pelvis With Contrast Exam date and time: 03/31/2021 6:21 PM Age: 50 years old Clinical indication: Abdominal pain; Left; Prior surgery; Surgery type: Hernia, hyst, bladder; Patient HX: C/O L flank pain; Additional info: Eval for renal colic and diveritculitis TECHNIQUE: Imaging protocol: Computed tomography of the abdomen and pelvis with contrast. Radiation optimization: All CT scans at this facility use at least one of these dose optimization techniques: automated exposure control; mA and/or kV adjustment per patient size (includes targeted exams where dose is matched to clinical indication); or iterative reconstruction. Contrast material: OMNI 300; Contrast volume: 95 ml; Contrast route: INTRAVENOUS (IV); COMPARISON: CT abdomen pelvis w con* [id number] 10/12/2020 6:06 PM RADIATION DOSE METRICS: Total DLP (mGy-cm): 1751.33 FINDINGS: Lungs: There is very mild ground-glass opacity in the lung bases compatible with mild atelectasis or pneumonitis. Diaphragm: A small hiatal hernia is present. Liver: There is a diffuse decrease in hepatic parenchymal density, consistent with fatty infiltration. Gallbladder and bile ducts: The gallbladder is contracted/decompressed. There is no wall thickening or pericholecystic fluid to suggest cholecystitis. There is no common bile duct dilation. Pancreas: Normal. No ductal dilation. Spleen: The spleen is normal. Adrenal glands: The adrenal glands are normal. Kidneys and ureters: There is no evidence of hydronephrosis. There is a punctate nonobstructing calculus midpole left kidney. Stomach and bowel: Moderate diverticulosis is present in the distal colon. There is no evidence of intestinal perforation or obstruction. There is diffuse small bowel wall thickening, consistent with infectious, ischemic, or inflammatory enteritis. There is no evidence of colitis/diverticulitis. Appendix: A normal appendix is identified. Intraperitoneal space: Unremarkable. No free air. No significant fluid collection. Vasculature: There are numerous benign phleboliths in the pelvis. The aorta demonstrates moderate atherosclerotic calcification. Lymph nodes: Unremarkable.No enlarged lymph nodes. Urinary bladder: Unremarkable as visualized. Reproductive: Unremarkable as visualized. Bones/joints: Unremarkable. No acute fracture. Soft tissues: Unremarkable. CT/CT abdomen pelvis w con* [id number] IMPRESSION: 1. There is diffuse small bowel wall thickening, consistent with infectious, ischemic, or inflammatory enteritis. 2. There is diverticulosis without diverticulitis. No hydronephrosis or obstructing calculus.
--- NOTE | 2021-03-31 18:21 | ECG_ITS ---
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: : 1970 Requested By: Desean Linares Order Number: [id number] Reading MD: JASON CARMICHAEL Measurements Intervals [place] Rate: 93 P: 53 [place]: 189 QRS: 3 QRSD: 82 T: 37 QT: 339 QTc: 423 Interpretive Statements SINUS RHYTHM LOW QRS VOLTAGE IN PRECORDIAL LEADS [QRS DEFLECTION < 1.0 mV IN CHEST LEADS] ANTEROSEPTAL MYOCARDIAL INFARCTION , PROBABLY OLD [40+ ms Q WAVE IN V1-V4] Compared to ECG 02/11/2021 20:25:03 Myocardial infarct finding now present Intraventricular conduction delay no longer present T-wave abnormality no longer present Electronically Signed On 04-01-2021 19:17:11 HEAD END DESIZING MACHINE OPERATOR by JASON CARMICHAEL [id number]
--- NOTE | 2021-03-31 18:26 | ED_ITS ---
HPI - General Adult General: Chief complaint: Abdominal Pain Stated complaint: Pain in Kidney area, nausia, back pain Time Seen by Provider: 03/31/21 18:04 History of Present Illness: Patient is a 50-year-old female with history of diabetes, CAD s/p stent x2, prior history of renal colic, prior diverticulitis, smoking who presents the emergency room with multiple complaints today. Patient tells me that for the last 2 to 3 weeks, she has had left-sided abdominal pain that radiates towards the back. In addition, patient went to see her primary care provider earlier this week and was found to have elevated liver enzyme. Patient tells me that she is concerned that usually when her liver enzyme is elevated that I have heart issues . In addition, patient is also concerned wilmer t this may be diverticulitis. Because of her insurance issues, patient has been unable to obtain a CT scan outpatient. Patient likes for CT scan here. Patient had no urinary complaints including dysuria/hematuria/polyuria. Patient denies any melena hematochezia. Patient has no vaginal discharge. Only prior abdominal surgery are hysterectomy and bladder lift. Patient has mild nausea but denies any decreased p.o. intake, pain with p.o. intake, or vomiting. Patient denies any fever/chills, active chest pain, shortness of breath, palpitation, lightheadedness, exertional chest pain, or any other focal complaints at this time Onset:3 weeks of L sided abdominal pain Duration: ongoing Location:home Severity:moderate Associated symptoms: Reports nausea; Deny chest pain, dyspnea, rash, palpitations or vomiting Review of Systems Const: Denies: fever(s) or chills Eyes: Denies: change in vision ENMT: Denies: mouth pain Card: Denies: chest pain or palpitations Resp: Denies: dyspnea or non-productive cough GI: Reports: abdominal pain and nausea; Denies: vomiting or diarrhea : Denies: dysuria Musc: Denies: extremity pain Skin/Breast: Denies: rash or new lesions Neuro: Denies: weakness in extremities Psych: Reports: other (Normal mood) Coy/Lymph: Denies: easy bruising PFSH ED PFSH: Medical History Asthma Coronary artery disease Diabetes Diastolic heart failure Hypertension Obesity Surgical History History of umbilical hernia repair Family History Other Hypertension Social History Smoking and tobacco status: current every day smoker Alcohol intake: current Alcohol intake frequency: holidays/special occasions only Physical Exam Const: COMMON NORMALS: alert HENMT: COMMON NORMALS: atraumatic HEAD & SCALP: atraumatic MOUTH: moist mucous membranes not abnormal Eye: COMMON NORMALS: EOMs intact bilaterally and conjunctivae normal CONJUNCTIVA: Yes conjunctivae normal Neck/C-Spine: COMMON NORMALS: full ROM and supple Resp: COMMON NORMALS: normal respiratory effort and clear to auscultation bilaterally AUSCULTATION: clear to auscultation bilaterally Cardio: RATE: tachycardic GI: COMMON NORMALS: Soft to palpation PALPATION: Yes Soft to palpation OTHER: + mild LLQ focal TTP. NO guarding rebound, guarding, rigidity. No CVA tenderness to percussion. Neg Gandhi/Neg McBurney's point tenderness, no suprabupic tenderness to palpation. Extremity: COMMON NORMALS: full ROM Neuro: SENSORIUM/ORIENTATION: Yes alert MOTOR EXAM: No Abnormal motor strength present and Other motor observations present (no focal motor deficits) Psych: COMMON NORMALS: speech normal SPEECH: Yes normal speech MOOD & A FFECT: Yes euthymic mood Course Vital Signs: Vital signs: Vital Signs Temperature 98.0 F 03/31/21 15:31 Pulse Rate 101 H 03/31/21 15:31 Respiratory Rate 16 03/31/21 15:31 Blood Pressure 182/79 03/31/21 15:31 Pulse Oximetry 95 03/31/21 15:31 [facility] - General Adult Medical Decision Making Patient is a [age]-year-old female with history of CAD status post stent x2, sam betes, renal colic presenting to the emergency room for evaluation of left lower quadrant pain radiating to the left back. On exam, patient has mild tenderness to palpation. Patient is noted to be mildly tachycardic to the low 100s. Work-up: CBC, CMP, lipase, CT abdomen pelvis, UA, EKG/troponin Intervention: IVF, toradol, tylenol, Gi cocktail Reassessment: CT abdomen pelvis showed possible in her right is of unknown origin etiology. Patient is afebrile, white count of 6.3 today. Patient is able to tolerate p.o. without any difficulty. Lab work-up showed mildly elevated AST ALT and alk phos. Patient is given close follow with PCP for further evaluation of her symptoms. Troponin within normal limit, patient is chest pain free, EKG is non ischemic - I do not suspect the patient's symptoms are related to ACS. HR improved with IVF and patient tolerated PO without any difficulties. No focal complaints of pain or nausea/vomiting. Patient received a copy of her CT report and plans to follow-up with her primary care provider for further evaluation of her enteritis and fatty liver in filtration. EKG showing regular sinus rhythm at HT of [93]. Normal axis. No ST elevations/depressions to suggest coronary occlusion. Normal OK, QRS, QT intervals. Rx tylenol PRN abd pain, maalox/pepcid PRN dyspepsia, and zofran PRN nausea/vomiting I have given patient follow up with our corrections caseworker to be seen by our outpatient PCP for management of enteritis. Patient aware of a call from our c ase manager customs to schedule for appointment(s) and verbalizes understanding of the importance of following up. Lab Data : 03/31/21 18:32 03/31/21 18:32 Radiology Impressions Abdomen/Pelvis CT 03/31/21 18:21 IMPRESSION: 1. There is diffuse small bowel wall thickening, consistent with infectious, ischemic, or inflammatory enteritis. 2. There is diverticulosis without diverticulitis. No hydronephrosis or obstructing calculus. Laboratory Results WBC 6.3 10^3/uL (4.0-10.0) 03/31/21 18: RBC 4.81 10^6/uL (4.1-5.3) 03/31/21 18: Hgb 14.2 g/dL (11.5-15.3) 03/31/21 18: Hct 43.3 % (37.0-47.0) 03/31/21 18: MCV 90.0 fl (81-99) 03/31/21 18: MCH 29.5 pg (28.0-34.0) 03/31/21 18: MCHC 32.8 g/dL (30.0-36.0) 03/31/21 18: RDW 13.8 % (12.1-15.1) 03/31/21 18: Plt Count 200 10^3/cmm (130-400) 03/31/21 18:32 MPV 10.5 fL (7.4-10.4) H 03/31/21 18: Neut % (Auto) 80.7 % 03/31/21 18: Lymph % (Auto) 8.8 % 03/31/21 18:32 [place] % (Auto) 8.0 % 03/31/21 18: Eos % (Auto) 1.0 % 03/31/21: Baso % (Auto) 0.5 % 03/31/21: Neut # (Auto) 5.08 10^3/uL (1.8-7.7) 03/31/21 18: Lymph # (Auto) 0.6 10^3/uL (0.8-4.8) L 03/31/21 18: [place] # (Auto) 0.5 10^3/uL (0.2-0.9) 03/31/21 18: Eos # (Auto) 0.1 10^3/uL (0.0-0.8) 03/31/21: Baso # (Auto) 0.0 10^3/uL (0.0-0.1) 03/31/21 18: Nucleated RBC % (auto) 0 % 03/31/21: Nucleated RBCs # 0.0 /100WBC 03/31/21 18: Sodium 132 mmol/L (136-145) L 03/31/21 18:32 Potassium 4.0 mmol/L (3.5-5.1) 03/31/21 18: Chloride 95 mmol/L (98-107) L 03/31/21 18: Carbon Dioxide 22 mmol/L (22-29) 03/31/21 18:32 Anion Gap 19.0 (5-19) 03/31/21 18:32 BUN 9 mg/dL (6-20) 03/31/21 18: Creatinine 0.7 mg/dL (0.5-0.9) 03/31/21 18:32 GFR Calculation 89.3 mL/min (90-130) L 03/31/21 18:32 Glucose 186 mg/dL (65-115) H 03/31/21 18:32 Calculated Osmolality 278 mOsm/kg (285-295) L 03/31/21 18:32 Calcium 9.4 mg/dL (8.5-10.5) 03/31/21 18:32 Total Bilirubin 0.7 mg/dL (0.15-1.2) 03/31/21 18:32 AST 31 U/L (0-32) 03/31/21 18:32 ALT 53 U/L (0-33) H 03/31/21 18:32 Alkaline Phosphatase 154 IU/L (35-105) H 03/31/21 18:32 Troponin T Baseline 10 ng/L (0-10) 03/31/21 18:32 Total Protein 6.7 g/dL (6.6-8.7) 03/31/21 18:32 Albumin 4.0 g/dL (3.5-5.2) 03/31/21 18:32 Globulin 2.7 g/dL (1.3-4.6) 03/31/21 18:32 Lipase 33 U/L (13-60) 03/31/21 18:32 Urine Color Yellow (Yellow) 03/31/21 18:37 Urine Appearance Clear (CLEAR) 03/31/21 18:37 Urine pH 7 (5-7) 03/31/21 18:37 Ur Specific [place] 1.010 (1.005-1.030) 03/31/21 18:37 Urine Protein Neg (Negative) 03/31/21 18:37 Urine Glucose (UA) 4+ (Normal) H 03/31/21 18:37 Urine Ketones Negative (Negative) 03/31/21 18:37 Urine Blood Neg (Negative) 03/31/21 18:37 Urine Nitrate Negative (Negative) 03/31/21 18:37 Urine Bilirubin Neg (Negative) 03/31/21 18:37 Urine Urobilinogen Norm mg/dL (Negative) 03/31/21 18:37 Ur Leukocyte Esterase Negative (Negative) 03/31/21 18:37 Imaging Data Other Imaging: My impression: [address] [address] [address] Scan Report Signed Patient: Rimma White Unit #: [id number] : 1970 Age/Sex: 50 / F ADM Date: 03/31/21 Loc: ER Room/Bed: Attending Dr: Ordering Provider/Ordering MD: Desean Linares MD Date of Service: 03/31/21 Procedure(s): CT abdomen pelvis w con* [id number] Accession Number(s): [id number] Report Number: [id number] PROCEDURE INFORMATION: Exam: CT Abdomen And Pelvis With Contrast Exam date and time: 03/31/2021 6:21 PM Age: 50 years old Clinical indication: Abdominal pain; Left; Prior surgery; Surgery type: Hernia, hyst, bladder; Patient HX: C/O L flank pain; Additional info: Eval for renal colic and diveritculitis TECHNIQUE: Imaging protocol: Computed tomography of the abdomen and pelvis with contrast. Radiation optimization: All CT scans at this facility use at least one of these dose optimization techniques: automated exposure control; mA and/or kV adjustment per patient size (includes targeted exams where dose is matched to clinical indication); or iterative reconstruction. Contrast material: OMNI 300; Contrast volume: 95 ml; Contrast route: INTRAVENOUS (IV);? COMPARISON: CT abdomen pelvis w con* [id number] 10/12/2020 6:06 PM RADIATION DOSE METRICS: Total DLP (mGy-cm): 1751.33 FINDINGS: Lungs: There is very mild ground-glass opacity in the lung bases compatible with mild atelectasis or pneumonitis. Diaphragm: A small hiatal hernia is present. Liver: There is a diffuse decrease in hepatic parenchymal density, consistent with fatty infiltration. Gallbladder and bile ducts: The gallbladder is contracted/decompressed. There is no wall thickening or pericholecystic fluid to suggest cholecystitis. There is no common bile duct dilation. Pancreas: Normal. No ductal dilation. Spleen: The spleen is normal. Adrenal glands: The adrenal glands are normal. Kidneys and ureters: There is no evidence of hydronephrosis. There is a punctate nonobstructing calculus midpole left kidney. Stomach and bowel: Moderate diverticulosis is present in the distal colon. There is no evidence of intestinal perforation or obstruction. There is diffuse small bowel wall thickening, consistent with infectious, ischemic, or inflammatory enteritis. There is no evidence of colitis/diverticulitis. Appendix: A normal appendix is identified. Intraperitoneal space: Unremarkable. No free air. No significant fluid collection. Vasculature: There are numerous benign phleboliths in the pelvis. The aorta demonstrates moderate atherosclerotic calcification. Lymph nodes: Unremarkable.No enlarged lymph nodes. Urinary bladder: Unremarkable as visualized. Reproductive: Unremarkable as visualized. Bones/joints: Unremarkable. No acute fracture. Soft tissues: Unremarkable. CT/CT abdomen pelvis w con* [id number] IMPRESSION: 1. There is diffuse small bowel wall thickening, consistent with infectious, ischemic, or inflammatory enteritis. 2. There is diverticulosis without diverticulitis. No hydronephrosis or obstructing calculus. ? Dictated By: Mari Ro Signed By: Mari Ro Signed Date/Time: 03/31/211928 DD/ 20 Discharge Plan Discharge Patient Disposition: Home Clinical Impression: Abdominal pain Condition: Stable Prescriptions: New acetaminophen 500 mg tablet 500 mg PO Q6H PRN (Reason: pain) 5 Days Qty: 20 0RF Zofran 4 mg tablet 4 mg PO TID PRN (Reason: nausea and vomiting) 4 Days Qty: 12 0RF Pepcid 20 mg tablet 20 mg PO BID PRN (Reason: abdominal pain) 10 Days Qty: 20 0RF Maalox Advanced 1,000-60 mg tablet,chewable 1 tab PO TID PRN (Reason: abdominal pain) 7 Days Qty: 21 0RF No Action fluoxetine 40 mg capsule 40 mg PO DAILY@15 0RF alprazolam 0.25 mg tablet 0.5 mg PO BID PRN (Reason: anxiety) 0RF lisinopril 10 mg tablet 10 mg PO DAILY@15 0RF metformin 1,000 mg tablet 1,000 mg PO BID@15,22 0RF nitroglycerin [Nitrostat] 0.4 mg tablet, sublingual 0.4 mg sublingual Q5M PRN (Reason: chest pain) Qty: 25 3RF Rx Instructions: do not exceed 3 doses per episode potassium chloride 20 mEq tablet extended release 20 meq PO DAILY PRN (Reason: edema) Qty: 30 3RF Rx Instructions: when taking Lasix Jardiance 25 mg tablet 25 mg PO DAILY Qty: 90 3RF Rx Instructions: take 1 tablet once a day fluconazole 150 mg tablet 150 mg PO DAILY Qty: 1 0RF Rx Instructions: Take one tablet by mouth daily multivitamin Tablet 1 tab PO DAILY 0RF metoprolol succinate 25 mg tablet extended release 24 hr 25 mg PO DAILY@15 0RF isosorbide mononitrate 30 mg tablet extended release 24 hr 15 mg PO BID Qty: 30 3RF furosemide 40 mg tablet 40 mg PO DAILY PRN (Reason: edema) Qty: 30 6RF Rx Instructions: for 3 days daily then prn Brilinta 90 mg tablet See Rx Instructions .ROUTE .COMPLEX Qty: 180 0RF Dose Instruction: Take 1 tablet by mouth twice daily Rx Instructions: Take 1 tablet by mouth twice daily atorvastatin 80 mg tablet See Rx Instructions .ROUTE .COMPLEX Qty: 90 3RF Dose Instruction: TAKE 1 TABLET BY MOUTH AT BEDTIME Rx Instructions: TAKE 1 TABLET BY MOUTH AT BEDTIME pantoprazole 40 mg tablet,delayed release (DR/EC) 40 mg PO DAILY@15 Qty: 90 3RF budesonide-formoterol 160-4.5 mcg/actuation HFA aerosol inhaler 1 puff INHALATION BID@15,22 0RF aspirin 81 mg tablet,delayed release (DR/EC) 81 mg PO DAILY@15 0RF Discharge Orders: Discharge ED (Routine); Ordered 03/31/21 Ordered By: Desean Linares Referrals: Wilmer Wilkins DO [Primary Care Provider] - Discharge Diet: Usual diet Discharge Activity: Increase activity as tolerated Patient Instructions: Abdominal Pain (ED) Activity Restrictions/Additional Instructions: Please come back if you have any worsening abdominal pain, fever or chills, nausea or vomiting, diarrhea, blood in the stool, inability hold down liquid or solids, or any new concerning complaints. Coding Level of Care Code ED Crt for Meli Fwd Exam Comprehensive
[2021-03-31 18:39] LABS: Basophils % 0.5 %; Eosinophils # 0.1 10^3/uL (0.0-0.8); Hematocrit 43.3 % (37.0-47.0); Hemoglobin 14.2 g/dL (11.5-15.3); Lymphocytes # 0.6 10^3/uL (0.8-4.8); Lymphocytes % 8.8 %; Mean Corpuscular HGB Conc 32.8 g/dL (30.0-36.0); Mean Corpuscular Hemoglobin 29.5 pg (28.0-34.0); Mean Platelet Volume 10.5 fL (7.4-10.4); Monocytes # 0.5 10^3/uL (0.2-0.9); Neutrophils # 5.08 10^3/uL (1.8-7.7); Neutrophils % 80.7 %; Nucleated Red Blood Cells % 0 %; Platelet Count 200 10^3/cmm (130-400); Red Blood Count 4.81 10^6/uL (4.1-5.3); Red Cell Distribution Width 13.8 % (12.1-15.1); White Blood Count 6.3 10^3/uL (4.0-10.0)
[2021-03-31 18:42] LABS: Add Urine Microscopic? NO; Charge for UA Resulting for Rev
[2021-03-31 18:54] LABS: Urine Appearance Clear (CLEAR); Urine Color Yellow (Yellow); pH Urine 7 (5-7)
[2021-03-31 18:55] LABS: Bilirubin Urine Neg (Negative); Blood Urine Neg (Negative); Glucose Urine UA 4+ (Normal); Ketones Urine Negative (Negative); Leukocyte Esterase Urine Negative (Negative); Nitrate Urine Negative (Negative); Protein Urine Neg (Negative); Urobilinogen Urine Norm (Negative)
[2021-03-31] MEDS: iohexol 300 mg/mL 100 mL Btl IV (19:00)
[2021-03-31 19:03] LABS: Alanine Aminotransferase 53 U/L (0-33); Alkaline Phosphatase 154 IU/L (35-105); Aspartate Amino Transferase 31 U/L (0-32); Blood Urea Nitrogen 9 mg/dL (6-20); Calcium 9.4 mg/dL (8.5-10.5); Carbon Dioxide 22 mmol/L (22-29); Chloride 95 mmol/L (98-107); Globulin 2.7 g/dL (1.3-4.6); Glomerular Filtration Rate 89.3 mL/min (90-130); Glucose 186 mg/dL (65-115); Lipase 33 U/L (13-60); Osmolality Calculated 278 mOsm/kg (285-295); Sodium 132 mmol/L (136-145); Total Bilirubin 0.7 mg/dL (0.15-1.2); Total Protein 6.7 g/dL (6.6-8.7); Troponin(5th) Baseline 10 ng/L (0-10)
[2021-03-31] MEDS: ketorolac 30 mg/mL INJ IVP (19:39)
[2021-03-31] MEDS: acetaminophen 500 mg Tablet PO (19:39)
[2021-03-31] MEDS: lidocaine 2% viscous 15 ML, aluminum-mag hydrox-simethicon 30 ML, sucralfate oral liq 1 GM PO (19:40)
[2021-04-01 00:45] VITALS: PULSE 97
== END 2021-03-31 21:00 | disposition home or self-care (01) ==
PROVIDERS: Nurse Practitioner Family; Emergency Provider Emergency Medicine; PCP Internal Medicine
DX: R10.9 Unspecified abdominal pain (principal); Z79.84 Long term (current) use of oral hypoglycemic drugs; Z79.82 Long term (current) use of aspirin; I25.10 Atherosclerotic heart disease of native coronary artery without angina pectoris; E11.9 Type 2 diabetes mellitus without complications; I11.0 Hypertensive heart disease with heart failure; I50.30 Unspecified diastolic (congestive) heart failure; F17.210 Nicotine dependence, cigarettes, uncomplicated
CPT/HCPCS: 74177; 80053; 81003; 83690; 84484; 85025; 93005; 96374; 99284; J1885; Q9967

== ENCOUNTER 2021-04-13 10:51 | Emergency (ER) | payer BC, SELFPAY ==
[2021-04-13 11:08] VITALS: BP 154/104; PULSE 103; RESP 16; O2SAT 96; BMI 48.6
--- NOTE | 2021-04-13 11:15 | XR_ITS ---
WS: [id number] PORTABLE CHEST HISTORY: SOB, cough COMPARISON: 02/11/2021 Improving and very minimal persistent linear atelectasis at the LEFT lung base. Otherwise the lungs a re clear. No pneumonia. Normal vasculature. No pleural effusion or pneumothorax. Cardiac size: Normal. Mediastinum/Aorta: Normal mediastinum. No osseous abnormality seen. XR/XR chest 1V portable [id number] IMPRESSION: 1. No pneumonia. 2. Minimal subsegmental atelectasis at the LEFT lung base.
--- NOTE | 2021-04-13 11:17 | ED_ITS ---
HPI - General Adult General: Chief complaint: General Medical Stated complaint: SOB, congestion, ears hurting, nausea, weakness Time Seen by Provider: 04/13/21 11:17 Source: patient Mode of arrival: ambulatory Limitations: no limitations History of Present Illness: 50-year-old female presents to the ER today for 1 month of not feeling well. Patient reports she was seen in the ER about 2 weeks ago and diagnosed with enteritis. Patient reports at that time she had belly pain and diarrhea. She reports since then she has had continued nausea and bloating. Patient reports she is also started having congestion, sore throat and bilateral ear pain over the last several days. She denies any fever but does report chills. Patient denies any sick contacts. She was checked for Covid but that was about 2 weeks ago. Patient reports overall weakness. She reports some shortness of breath but does admit to being a smoker. Patient also has a history of diabetes and congestive heart failure. Onset (ago): week(s) Associated symptoms: Reports dyspnea, malaise, nausea and weakness; Deny rash Review of Systems General: Reports: 10 or more systems reviewed and unremarkable except in HPI and below Const: Reports: malaise ENMT: Reports: throat pain, ear or mastoid pain and nasal congestion Resp: Reports: dyspnea GI: Reports: nausea Skin/Breast: Denies: rash PFSH ED PFSH: Medical History Asthma Coronary artery disease Diabetes Diastolic heart failure Hypertension Obesity Surgical History History of umbilical hernia repair Family History Other Hypertension Social History Smoking and tobacco status: current every day smoker Alcohol intake: current Alcohol intake frequency: holidays/special occasions only Physical Exam Const: COMMON NORMALS: no acute distress, patient oriented x3, no limitations, alert and well nourished HENMT: COMMON NORMALS: normocephalic, external ears normal, Normal external nose present and moist oral mucous membranes HEAD & SCALP: normocephalic NOSE: Normal external nose present EXTERNAL EAR: Yes external ears normal Eye: COMMON NORMALS: conjunctivae normal CONJUNCTIVA: Yes conjunctivae normal Lymph: LYMPHATIC: no lymphadenopathy noted Resp: COMMON NORMALS: normal respiratory effort, No retractions and No use of accessory muscles AUSCULTATION: rhonchi lower bilaterally and wheezes expiratory wheezes Cardio: COMMON NORMALS: regular rate and regular rhythm RATE: regular rate RHYTHM: regular rhythm GI: COMMON NORMALS: Normal to inspection, nondistended, normoactive bowel sounds present Extremity: COMMON NORMALS: normal to inspection and full ROM Neuro: COMMON NORMALS: patient oriented x3 SENSORIUM/ORIENTATION: Yes alert Skin: COMMON NORMALS: no rashes or lesions noted GENERAL SKIN EXAM: no rashes or lesions noted Course ED course: Patient presents to the ER today with 1 month of not feeling well however worsening over the last 1 week. Patient has congestion, sore throat, weakness, nausea. She was seen in the ER 2 weeks ago and diagnosed with enteritis. Patient has had continued worsening symptoms. She describes being very weak. On exam she does have rhonchi and wheezing noted bilaterally. Patient has a history of CHF and is a smoker. We will do a Covid swab, chest x- ray and labs at this time. Vital Signs: Vital signs: Vital Signs Pulse Rate 103 H 04/13/21 11:08 Respiratory Rate 16 04/13/21 11:08 Blood Pressure 154/104 04/13/21 11:08 Pulse Oximetry 96 04/13/21 11:08 [facility] - General Adult Medical Decision Making 50-year-old female presents to the ER today for congestion, sore throat, ear pain times several days in addition to overall not feeling well x1 month. Patient was seen and diagnosed with enteritis 2 weeks ago. She reports continued bloating and nausea however that has slightly improved since her visit to the ER. Patient reports the congestion began in the last several days and is new though. Patient reports bilateral ear pain but denies drainage. 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 There does not appear to be any acute infection. Covid test was negative. Pt has a slightly bumped white count and other labs are unremarkable. Will treat with Augmentin at this time. Take Mucinex also. F/U with PCP in 5-7 days if no improvement. Return to the ER with any new or worsening symptoms. Pt verbalized understanding and is in agreement with this treatment plan. Lab Data : 04/13/21 13:44 Radiology Impressions Chest X-Ray 04/13/21 11:15 IMPRESSION: 1. No pneumonia. 2. Minimal subsegmental atelectasis at the LEFT lung base. Laboratory Results WBC 12.4 10^3/uL (4.0-10.0) H 04/13/21 13:44 RBC 5.18 10^6/uL (4.1-5.3) 04/13/21 13:44 Hgb 15.3 g/dL (11.5-15.3) 04/13/21 13:44 Hct 46.5 % (37.0-47.0) 04/13/21 13:44 MCV 89.8 fl (81-99) 04/13/21 13:44 MCH 29.5 pg (28.0-34.0) 04/13/21 13:44 MCHC 32.9 g/dL (30.0-36.0) 04/13/21 13:44 RDW 13.3 % (12.1-15.1) 04/13/21 13:44 Plt Count 252 10^3/cmm (130-400) 04/13/21 13:44 MPV 10.9 fL (7.4-10.4) H 04/13/21 13:44 Neut % (Auto) 67.8 % 04/13/21 13:44 Lymph % (Auto) 23.2 % 04/13/21 13:44 [place] % (Auto) 5.7 % 04/13/21 13:44 Eos % (Auto) 2.3 % 04/13/21 13:44 Baso % (Auto) 0.4 % 04/13/21 13:44 Neut # (Auto) 8.45 10^3/uL (1.8-7.7) H 04/13/21 13:44 Lymph # (Auto) 2.9 10^3/uL (0.8-4.8) 04/13/21 13:44 [place] # (Auto) 0.7 10^3/uL (0.2-0.9) 04/13/21 13:44 Eos # (Auto) 0.3 10^3/uL (0.0-0.8) 04/13/21 13:44 Baso # (Auto) 0.1 10^3/uL (0.0-0.1) 04/13/21 13:44 Nucleated RBC % (auto) 0 % 04/13/21 13:44 Nucleated RBCs # 0.0 /100WBC 04/13/21 13:44 Urine Color Yellow (Yellow) 04/13/21 13:14 Urine Appearance Clear (CLEAR) 04/13/21 13:14 Urine pH 6.5 (5-7) 04/13/21 13:14 Ur Specific [place] 1.020 (1.005-1.030) 04/13/21 13:14 Urine Protein Neg (Negative) 04/13/21 13:14 Urine Glucose (UA) Norm (Normal) 04/13/21 13:14 Urine Ketones Negative (Negative) 04/13/21 13:14 Urine Blood Neg (Negative) 04/13/21 13:14 Urine Nitrate Negative (Negative) 04/13/21 13:14 Urine Bilirubin Neg (Negative) 04/13/21 13:14 Urine Urobilinogen 4 mg/dL (Negative) H 04/13/21 13:14 Ur Leukocyte Esterase Negative (Negative) 04/13/21 13:14 SARS-CoV-2 Ag (Rapid) Negative (Negative) 04/13/21 14:02 Critical Care Time Critical Care Time: Critical Care Time: No Discharge Plan Discharge Patient Disposition: Home Clinical Impression: Sinusitis Condition: Stable Prescriptions: New Augmentin 875-125 mg tablet 1 tab PO BID 10 Days Qty: 20 0RF No Action fluoxetine 40 mg capsule 40 mg PO DAILY@15 0RF alprazolam 0.25 mg tablet 0.5 mg PO BID PRN (Reason: anxiety) 0RF lisinopril 10 mg tablet 10 mg PO DAILY@15 0RF metformin 1,000 mg tablet 1,000 mg PO BID@15,22 0RF nitroglycerin [Nitrostat] 0.4 mg tablet, sublingual 0.4 mg sublingual Q5M PRN (Reason: chest pain) Qty: 25 3RF Rx Instructions: do not exceed 3 doses per episode potassium chloride 20 mEq tablet extended release 20 meq PO DAILY PRN (Reason: edema) Qty: 30 3RF Rx Instructions: when taking Lasix Jardiance 25 mg tablet 25 mg PO DAILY Qty: 90 3RF Rx Instructions: take 1 tablet once a day fluconazole 150 mg tablet 150 mg PO DAILY Qty: 1 0RF Rx Instructions: Take one tablet by mouth daily multivitamin Tablet 1 tab PO DAILY 0RF metoprolol succinate 25 mg tablet extended release 24 hr 25 mg PO DAILY@15 0RF isosorbide mononitrate 30 mg tablet extended release 24 hr 15 mg PO BID Qty: 30 3RF furosemide 40 mg tablet 40 mg PO DAILY PRN (Reason: edema) Qty: 30 6RF Rx Instructions: for 3 days daily then prn Brilinta 90 mg tablet See Rx Instructions .ROUTE .COMPLEX Qty: 180 0RF Dose Instruction: Take 1 tablet by mouth twice daily Rx Instructions: Take 1 tablet by mouth twice daily atorvastatin 80 mg tablet See Rx Instructions .ROUTE .COMPLEX Qty: 90 3RF Dose Instruction: TAKE 1 TABLET BY MOUTH AT BEDTIME Rx Instructions: TAKE 1 TABLET BY MOUTH AT BEDTIME pantoprazole 40 mg tablet,delayed release (DR/EC) 40 mg PO DAILY@15 Qty: 90 3RF budesonide-formoterol 160-4.5 mcg/actuation HFA aerosol inhaler 1 puff INHALATION BID@15,22 0RF aspirin 81 mg tablet,delayed release (DR/EC) 81 mg PO DAILY@15 0RF Discharge Orders: Discharge ED (Routine); Ordered 04/13/21 Ordered By: Marilyn Seth Referrals: Wilmer Wilkins DO [Primary Care Provider] - Discharge Diet: Usual diet Discharge Activity: Resume usual activity Patient Instructions: Opioid Safety Activity Restrictions/Additional Instructions: Take Augmentin as prescribed. Take Mucinex 1200 mg twice daily. Follow-up with PCP in 5 to 7 days if no improvement. Return to the ER with any new or worsening symptoms. Coding Level of Care Code ED Cork Slabs Sawyer for Meli Fwd Exam Comprehensive
[2021-04-13 13:51] LABS: Add Urine Microscopic? NO; Charge for UA Resulting for Rev
[2021-04-13 13:52] LABS: Basophils # 0.1 10^3/uL (0.0-0.1); Basophils % 0.4 %; Eosinophils # 0.3 10^3/uL (0.0-0.8); Eosinophils % 2.3 %; Hematocrit 46.5 % (37.0-47.0); Hemoglobin 15.3 g/dL (11.5-15.3); Lymphocytes # 2.9 10^3/uL (0.8-4.8); Lymphocytes % 23.2 %; Mean Corpuscular HGB Conc 32.9 g/dL (30.0-36.0); Mean Corpuscular Hemoglobin 29.5 pg (28.0-34.0); Mean Corpuscular Volume 89.8 fl (81-99); Mean Platelet Volume 10.9 fL (7.4-10.4); Monocytes # 0.7 10^3/uL (0.2-0.9); Monocytes % 5.7 %; Neutrophils # 8.45 10^3/uL (1.8-7.7); Neutrophils % 67.8 %; Nucleated Red Blood Cells % 0 %; Platelet Count 252 10^3/cmm (130-400); Red Blood Count 5.18 10^6/uL (4.1-5.3); Red Cell Distribution Width 13.3 % (12.1-15.1); White Blood Count 12.4 10^3/uL (4.0-10.0)
[2021-04-13 14:10] LABS: Bilirubin Urine Neg (Negative); Blood Urine Neg (Negative); Glucose Urine UA Norm (Normal); Ketones Urine Negative (Negative); Leukocyte Esterase Urine Negative (Negative); Nitrate Urine Negative (Negative); Protein Urine Neg (Negative); Urine Appearance Clear (CLEAR); Urine Color Yellow (Yellow); Urobilinogen Urine 4 mg/dL (Negative); pH Urine 6.5 (5-7)
[2021-04-13 15:36] LABS: SARS Covid-2 Antigen Negative (Negative)
[2021-04-13 15:53] VITALS: BP 152/106; PULSE 94; RESP 16; TEMP 36.5; O2SAT 93
[2021-04-13 19:34] LABS: Adenovirus Not Detected (NOT DETECT); Chlamydia Pneumoniae Not Detected (NOT DETECT); Coronavirus 229E,HKU1,NL63,OC4 Not Detected (NOT DETECT); Human Metapneumovirus Not Detected (NOT DETECT); Human Rhinovirus/Enterovirus Not Detected (NOT DETECT); Influenza A Not Detected (NOT DETECT); Influenza A H1 Not Detected (NOT DETECT); Influenza A H1-2009 Not Detected (NOT DETECT); Influenza A H3 Not Detected (NOT DETECT); Influenza B Not Detected (NOT DETECT); Mycoplasma Pneumoniae Not Detected (NOT DETECT); Parainfluenza Virus Type 1 Not Detected (NOT DETECT); Parainfluenza Virus Type 2 Not Detected (NOT DETECT); Parainfluenza Virus Type 3 Not Detected (NOT DETECT); Parainfluenza Virus Type 4 Not Detected (NOT DETECT); Respiratory Syncytial Virus A Not Detected (NOT DETECT); Respiratory Syncytial Virus B Not Detected (NOT DETECT); SARS-COV-2 Not Detected (NOT DETECT)
== END 2021-04-13 16:09 | disposition home or self-care (01) ==
PROVIDERS: Emergency Provider Physician Assistant; PCP Internal Medicine
DX: J32.9 Chronic sinusitis, unspecified (principal); Z79.82 Long term (current) use of aspirin; I25.10 Atherosclerotic heart disease of native coronary artery without angina pectoris; E11.9 Type 2 diabetes mellitus without complications; I11.0 Hypertensive heart disease with heart failure; I50.30 Unspecified diastolic (congestive) heart failure; F17.210 Nicotine dependence, cigarettes, uncomplicated; Z79.84 Long term (current) use of oral hypoglycemic drugs; Z20.822 Contact with and (suspected) exposure to COVID-19
CPT/HCPCS: 71045; 81003; 85025; 87426; 87635; 99283

== ENCOUNTER 2021-04-30 13:03 | Outpatient (CLI) | payer BC, SELFPAY ==
--- NOTE | 2021-04-30 13:24 | CT_ITS ---
WS: [id number] CT ABDOMEN AND PELVIS WITH CONTRAST HISTORY: ELEVATED SERUM ALKALINE PHOSPHATASE LEVEL TECHNIQUE: Imaging performed of the abdomen and pelvis with IV contrast. Single phase imaging of the abdomen. Coronal and sagittal reformats are submitted. All CT scans at [facility] use at [facility] one of these dose optimization techniques: automated exposure control; mA and/or kV adjustment per patient size (includes targeted exams where dose is matched to clinical indication); or iterative re construction. IV CONTRAST: Omnipaque 300; 95 mL IV. Oral contrast: Yes. DLP: 1266.42 mGy.cm COMPARISON: 03/31/2021 Lower thorax: Lung bases are clear. Heart is normal size. Small hiatal hernia. Liver/biliary system: Mild hepatomegaly and hepatic steatosis. No mass. Normal portal vein. Gallbladder: Normal. No gallstones or wall thickening. No pericholecystic fluid. Pancreas: Normal size pancreas and pancreatic duct. No adjacent inflammation. Spleen: Normal size spleen. No mass or infarct. Adrenal glands: Normal. Right kidney: Normal. Left kidney: Normal. Aorta: No aortic aneurysm. There is heavy calcification in the infrarenal aorta. There is a high-grad e stenosis at the level of the bifurcation. Greater than 50% stenosis of the lumen. Mild plaque exten ds into the iliac arteries bilaterally. Lymphadenopathy: None. Free fluid: None. GI tract: Unremarkable. Normal appendix, no GI tract obstruction or diverticulitis. There are numerou s diverticula in the descending and sigmoid colon with no acute inflammation. Abdominal wall: Unremarkable abdominal wall. No hernia. Pelvis: Prior hysterectomy. No free fluid or adenopathy. No mass. Atrophic ovaries. Bones: No destructive bone lesions. CT/CT abdomen pelvis w con* [id number] IMPRESSION: 1. No GI tract obstruction. 2. Small hiatal hernia. 3. Mild hepatic steatosis and hepatomegaly. 4. Moderate to severe stenosis infrarenal aorta secondary to heavy calcificati on. Consider evaluation by vascular surgery. 5. Diverticulosis without acute diverticulitis. 6. Normal appendix. 7. Prior hysterectomy.
[2021-04-30] MEDS: iohexol 300 mg/mL 100 mL Btl IV (15:41)
[2021-04-30] MEDS: iohexol 300 mg/mL 50 mL Btl PO (15:41)
== END 2021-04-30 13:04 | disposition home or self-care (01) ==
PROVIDERS: PCP Internal Medicine; Visit Provider Physician Assistant
DX: R74.8 Abnormal levels of other serum enzymes (principal); K44.9 Diaphragmatic hernia without obstruction or gangrene; K76.0 Fatty (change of) liver, not elsewhere classified; R16.0 Hepatomegaly, not elsewhere classified; K57.90 Diverticulosis of intestine, part unspecified, without perforation or abscess without bleeding; Z90.710 Acquired absence of both cervix and uterus
CPT/HCPCS: 74177

== ENCOUNTER 2021-05-23 12:47 | Observation (INO) | payer BC, SELFPAY ==
[2021-05-23] VITALS (10 sets, daily range): BP systolic 120–145; BP diastolic 80–101; PULSE 71–92; RESP 14–26; TEMP 36.6–36.8; O2SAT 90–95; BMI 48.3
--- NOTE | 2021-05-23 13:09 | W.ED.CHESTPA ---
HPI - Chest Pain General: Chief Complaint: Chest Pain Stated Complaint: chest pain Time Seen by Provider: 05/23/21 13:09 Source: patient Mode of arrival: ambulatory Limitations: no limitations History of Present Illness: 51-year-old female presents emergency room with complaint of chest pain. Patient has a known history of coronary artery disease as well as congestive heart failure. She had a couple of syncopal episodes lately. She had chest pain today that began while at rest relieved by sublingual nitro. She did not have any vomiting or diaphoresis with it. She denies any cough fever sweats or chills or productive cough. She had an episode a couple of days ago as well. MD complaint: chest pain Pertinent past history: coronary artery disease Onset (ago): day(s) Timing of current episode: episodic Prior episodes: Yes Onset: during rest Pain location: left chest Pain radiation: left arm and left shoulder Severity: moderate Quality: aching and heaviness Relieving factors: nitroglycerin Exacerbating factors: exertion Associated symptoms: Reports diaphoresis, dyspnea and leg edema; Deny abdominal pain, fever(s), nausea, palpitations, sense of impending doom, syncope or vomiting Treatment prior to arrival: nitroglycerin Review of Systems Const: Reports: diaphoresis; Denies: fever(s), chills or body aches ENMT: Denies: throat pain, ear or mastoid pain, nasal discharge or nasal congestion Card: Reports: chest pain, edema and swelling of feet/ankles; Denies: palpitations or syncope Resp: Reports: dyspnea GI: Denies: abdominal pain, nausea or vomiting : Denies: flank pain, difficulty voiding, dysuria, urinary frequency or urinary urgency Skin/Breast: Denies: rash or pruritus PFSH ED PFSH: Medical History (HFpEF) heart failure with preserved ejection fraction Asthma Chest pain Coronary artery disease Diabetes Diastolic heart failure Hypertension Obesity Surgical History History of umbilical hernia repair Family History Other Hypertension Social History Smoking and tobacco status: current every day smoker Alcohol intake: current Alcohol intake frequency: holidays/special occasions only Physical Exam Const: COMMON NORMALS: no acute distress GENERAL APPEARANCE: cooperative and comfortable ORIENTATION/CONSCIOUSNESS: Yes awake, Yes oriented to person, Yes oriented to place and Yes oriented to time HENMT: COMMON NORMALS: normocephalic, atraumatic and hearing grossly normal bilaterally HEAD & SCALP: normocephalic and atraumatic Neck/C-Spine: COMMON NORMALS: no JVD Resp: COMMON NORMALS: normal respiratory effort, No retractions, No use of accessory muscles and clear to auscultation bilaterally AUSCULTATION: clear to auscultation bilaterally Cardio: COMMON NORMALS: no JVD, regular rate, regular rhythm and No murmurs present (Cardio) RATE: regular rate RHYTHM: regular rhythm GI: COMMON NORMALS: Soft to palpation and No hepatosplenomegaly present AUSCULTATION: Yes normoactive bowel sounds PALPATION: Yes Soft to palpation, No Tenderness to palpation present (GI), No Guarding due to palpation present (GI) and Yes No hepatosplenomegaly present Extremity: COMMON NORMALS: normal to inspection, capillary refill normal, no calf tenderness and no pedal edema GENERAL: Yes edema (Trace lower extremity) Neuro: SENSORIUM/ORIENTATION: Yes oriented to person, Yes oriented to place and Yes oriented to time Skin: COMMON NORMALS: no rashes or lesions noted GENERAL SKIN EXAM: no rashes or lesions noted Course Vital Signs: Vital signs: Vital Signs Temperature 98.6 F 05/24/21 07:36 Pulse Rate 88 05/24/21 14:00 Respiratory Rate 15 05/24/21 11:22 Blood Pressure 118/84 05/24/21 11:22 Pulse Oximetry 94 05/24/21 11:22 MDM - Chest Pain Medical Decision Making Labs and EKG reviewed discussed with the patient. No acute ST changes on EKG. Concerning because of patient's history of coronary artery disease and ongoing chest pain relieved by angiogram. Discussed with hospitalist orders written. Medical Records I reviewed the patient's medical records. Lab Data I reviewed the patient's lab results. : 05/24/21 05:05 05/24/21 05:05 Radiology Impressions Chest X-Ray 05/23/21 13:10 IMPRESSION: No acute findings. Laboratory Results WBC 9.5 10^3/uL (4.0-10.0) 05/23/21 13:33 RBC 4.97 10^6/uL (4.1-5.3) 05/23/21 13:33 Hgb 15.0 g/dL (11.5-15.3) 05/23/21 13:33 Hct 44.8 % (37.0-47.0) 05/23/21 13:33 MCV 90.1 fl (81-99) 05/23/21 13:33 MCH 30.2 pg (28.0-34.0) 05/23/21 13:33 MCHC 33.5 g/dL (30.0-36.0) 05/23/21 13:33 RDW 13.5 % (12.1-15.1) 05/23/21 13:33 Plt Count 271 10^3/cmm (130-400) 05/23/21 13:33 MPV 10.9 fL (7.4-10.4) H 05/23/21 13:33 Neut % (Auto) 65.9 % 05/23/21 13:33 Lymph % (Auto) 26.1 % 05/23/21 13:33 [place] % (Auto) 4.5 % 05/23/21 13:33 Eos % (Auto) 2.6 % 05/23/21 13:33 Baso % (Auto) 0.5 % 05/23/21 13:33 Neut # (Auto) 6.25 10^3/uL (1.8-7.7) 05/23/21 13:33 Lymph # (Auto) 2.5 10^3/uL (0.8-4.8) 05/23/21 13:33 [place] # (Auto) 0.4 10^3/uL (0.2-0.9) 05/23/21 13:33 Eos # (Auto) 0.3 10^3/uL (0.0-0.8) 05/23/21 13:33 Baso # (Auto) 0.1 10^3/uL (0.0-0.1) 05/23/21 13:33 Nucleated RBC % (auto) 0 % 05/23/21 13:33 Nucleated RBCs # 0.0 /100WBC 05/23/21 13:33 Sodium 135 mmol/L (136-145) L 05/23/21 14:15 Potassium 3.7 mmol/L (3.5-5.1) 05/23/21 14:15 Chloride 100 mmol/L (98-107) 05/23/21 14:15 Carbon Dioxide 23 mmol/L (22-29) 05/23/21 14:15 Anion Gap 15.7 (5-19) 05/23/21 14:15 BUN 11 mg/dL (6-20) 05/23/21 14:15 Creatinine 0.6 mg/dL (0.5-0.9) 05/23/21 14:15 GFR Calculation 106.7 mL/min (90-130) 05/23/21 14:15 Glucose 189 mg/dL (65-115) H 05/23/21 14:15 Calculated Osmolality 284 mOsm/kg (285-295) L 05/23/21 14:15 Calcium 9.6 mg/dL (8.5-10.5) 05/23/21 14:15 Total Bilirubin 0.8 mg/dL (0.15-1.2) 05/23/21 14:15 AST 34 U/L (0-32) H 05/23/21 14:15 ALT 52 U/L (0-33) H 05/23/21 14:15 Alkaline Phosphatase 122 IU/L (35-105) H 05/23/21 14:15 Creatine Kinase 55 U/L (26-192) 05/23/21 14:15 Troponin T Baseline 7 ng/L (0-10) 05/23/21 14:15 Troponin T 120 Minute 7.25 ng/L (0-10) 05/23/21 16:20 Delta Troponin T 0.25 ABS# (0-10) 05/23/21 16:20 Total Protein 7.2 g/dL (6.6-8.7) 05/23/21 14:15 Albumin 4.2 g/dL (3.5-5.2) 05/23/21 14:15 Globulin 3.0 g/dL (1.3-4.6) 05/23/21 14:15 Urine Color Straw (Yellow) 05/23/21 13:40 Urine Appearance Clear (CLEAR) 05/23/21 13:40 Urine pH 7 (5-7) 05/23/21 13:40 Ur Specific [place] 1.010 (1.005-1.030) 05/23/21 13:40 Urine Protein Neg (Negative) 05/23/21 13:40 Urine Glucose (UA) 4+ (Normal) H 05/23/21 13:40 Urine Ketones Negative (Negative) 05/23/21 13:40 Urine Blood Neg (Negative) 05/23/21 13:40 Urine Nitrate Negative (Negative) 05/23/21 13:40 Urine Bilirubin Neg (Negative) 05/23/21 13:40 Urine Urobilinogen Norm mg/dL (Negative) 05/23/21 13:40 Ur Leukocyte Esterase Negative (Negative) 05/23/21 13:40 Discharge Plan Discharge Patient Disposition: Admitted As Inpatient Admit Provider: Bala Collins Clinical Impression: Chest pain, Coronary artery disease, Diastolic heart failure, Diabetes mellitus, Syncope Condition: Stable Discharge Orders: Discharge Order (Routine); Ordered 05/24/21 Ordered By: Bala Collins Discharge Diet: Diabetic Discharge Activity: Resume usual activity Coding Level of Care Code ED Ballast Regulator Operator for Meli Sawant
--- NOTE | 2021-05-23 13:10 | XRR_ITS ---
PROCEDURE INFORMATION: Exam: XR Chest Exam date and time: 05/23/2021 12:18 PM Age: 50 years old Clinical indication: Cough and dyspnea; Additional info: Dyspnea/cough TECHNIQUE: Imaging protocol: XR of the chest. Views: 1 view. COMPARISON: CR XR chest 1V portable [id number] 04/13/2021 11:29 AM FINDINGS: Lungs: Unremarkable. No consolidation. Pleural spaces: Unremarkable. No pleural effusion. No pneumothorax. Heart/Mediastinum: Unremarkable. No cardiomegaly. Bones/joints: Unremarkable. XR/XR chest 1V portable [id number] IMPRESSION: No acute findings.
--- NOTE | 2021-05-23 13:12 | ECG_ITS ---
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 Measurements Intervals [place] Rate: 88 P: 53 NC: 189 QRS: 40 QRSD: 101 T: 19 QT: 364 QTc: 441 Interpretive Statements SINUS RHYTHM LOW QRS VOLTAGE IN PRECORDIAL LEADS [QRS DEFLECTION < 1.0 mV IN CHEST LEADS] POSSIBLE ANTERIOR MYOCARDIAL INFARCTION , PROBABLY OLD [30 ms Q WAVE IN V3/V4, OR R < 0.2 mV IN V4] Compared to ECG 03/31/2021 19:49:53 No significant changes Electronically Signed On 05-23-2021 19:18:40 CDT by Ileana Espinal M.D. [email or web address] [email or web address]/store/[id number] f
[2021-05-23] MEDS: aspirin 81 mg Chew Tablet 324 MG PO (13:24)
[2021-05-23] MEDS: ondansetron 2 mg/ML SDV 2 mL 4 MG IVP (13:26)
[2021-05-23 13:41] LABS: Basophils # 0.1 10^3/uL (0.0-0.1); Basophils % 0.5 %; Eosinophils # 0.3 10^3/uL (0.0-0.8); Eosinophils % 2.6 %; Hematocrit 44.8 % (37.0-47.0); Lymphocytes # 2.5 10^3/uL (0.8-4.8); Lymphocytes % 26.1 %; Mean Corpuscular HGB Conc 33.5 g/dL (30.0-36.0); Mean Corpuscular Hemoglobin 30.2 pg (28.0-34.0); Mean Corpuscular Volume 90.1 fl (81-99); Mean Platelet Volume 10.9 fL (7.4-10.4); Monocytes # 0.4 10^3/uL (0.2-0.9); Monocytes % 4.5 %; Neutrophils # 6.25 10^3/uL (1.8-7.7); Neutrophils % 65.9 %; Nucleated Red Blood Cells % 0 %; Platelet Count 271 10^3/cmm (130-400); Red Blood Count 4.97 10^6/uL (4.1-5.3); Red Cell Distribution Width 13.5 % (12.1-15.1); White Blood Count 9.5 10^3/uL (4.0-10.0)
[2021-05-23 13:48] LABS: Add Urine Microscopic? NO; Charge for UA Resulting for Rev
[2021-05-23 13:56] LABS: Protein Urine Neg (Negative); Urine Appearance Clear (CLEAR); Urine Color Straw (Yellow); pH Urine 7 (5-7)
[2021-05-23 13:57] LABS: Bilirubin Urine Neg (Negative); Blood Urine Neg (Negative); Glucose Urine UA 4+ (Normal); Ketones Urine Negative (Negative); Leukocyte Esterase Urine Negative (Negative); Nitrate Urine Negative (Negative); Urobilinogen Urine Norm (Negative)
[2021-05-23 14:55] LABS: Alanine Aminotransferase 52 U/L (0-33); Albumin Level 4.2 g/dL (3.5-5.2); Alkaline Phosphatase 122 IU/L (35-105); Anion Gap 15.7 (5-19); Aspartate Amino Transferase 34 U/L (0-32); Blood Urea Nitrogen 11 mg/dL (6-20); Calcium 9.6 mg/dL (8.5-10.5); Carbon Dioxide 23 mmol/L (22-29); Chloride 100 mmol/L (98-107); Creatine Phosphokinase 55 U/L (26-192); Glomerular Filtration Rate 106.7 mL/min (90-130); Glucose 189 mg/dL (65-115); Osmolality Calculated 284 mOsm/kg (285-295); Potassium 3.7 mmol/L (3.5-5.1); Sodium 135 mmol/L (136-145); Total Bilirubin 0.8 mg/dL (0.15-1.2); Total Protein 7.2 g/dL (6.6-8.7)
[2021-05-23 14:59] LABS: Troponin(5th) Baseline 7 ng/L (0-10)
--- NOTE | 2021-05-23 15:12 | ECG_ITS ---
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 Measurements Intervals [place] Rate: 89 P: 66 [place]: 190 QRS: 45 QRSD: 102 T: 66 QT: 383 QTc: 466 Interpretive Statements SINUS RHYTHM LOW QRS VOLTAGE IN PRECORDIAL LEADS [QRS DEFLECTION < 1.0 mV IN CHEST LEADS] POSSIBLE INFERIOR MYOCARDIAL INFARCTION , PROBABLY OLD [30 ms Q WAVE IN II/aVF] Compared to ECG 05/23/2021 12:56:08 No significant changes Electronically Signed On 05-23-2021 19:31:16 CDT by Ileana Espinal M.D. [email or web address]/store/[id number]
[2021-05-23 17:00] LABS: Troponin 5 2HR 7.25 ng/L (0-10)
[2021-05-23 17:11] LABS: Troponin 5 2HR Delta 0.25 ABS# (0-10)
--- NOTE | 2021-05-23 18:38 | USCV_ITS ---
Transthoracic Echo Rimma White Age: 50 Gender: F : 1970 Exam Date: 05/23/2021 19:42 Ordering Phys: Bala Collins MD Technologist: JANETT [place] [facility] [place]: Chest Pain BP: 143 / 89 HR: 83 Rhythm: Sinus Technical Quality: Adequate MEASUREMENTS (Male / Female) Normal Values 2D ECHO LV Diastolic Diameter PLAX 4.5 cm 4.2 - 5.9 / 3.9 - 5.3 cm LV Systolic Diameter PLAX 2.9 cm IVS Diastolic Thickness 1.2 cm 0.6 - 1.0 / 0.6 - 0.9 cm IVS Systolic Thickness 1.9 cm LVPW Diastolic Thickness 1.4 cm 0.6 - 1.0 / 0.6 - 0.9 cm LVPW Systolic Thickness 1.8 cm LVOT Diameter 2.3 cm LV Ejection Fraction 2D Teich 66.7 % LV Ejection Fraction MOD 2C 64.7 % LV Ejection Fraction 2C AL 65.2 % LA Diameter 3.5 cm LA Width 3.1 cm LA Height 4.5 cm RA Width 3.0 cm RA Height 5.5 cm Aorta at Sinotubular Diameter 2.5 cm M-MODE Aortic Annulus Diameter 2.2 cm LA Ao Ratio MM 1.9 MV E Point Septal Separation 0.7 cm DOPPLER AV Peak Velocity 122.5 cm/s LVOT Peak Velocity 76.0 cm/s AV Area Cont Eq vti 2.8 cm squared AV Area Cont Eq pk 2.6 cm squared MV Peak Velocity 101.0 cm/s MV Area PHT 5.0 cm squared Mitral E to A Ratio 0.8 MV E' Velocity 44.5 cm/s Mitral E to MV E' Ratio 7.8 Mitral E to LV E' Lateral Ratio 7.0 Mitral E to LV E' Septal Ratio 9.0 TR Peak Velocity 101.4 cm/s TR Peak Gradient 4.1 mmHg TR Mean Velocity 65.0 cm/s TR Mean Gradient 2.0 mmHg TR Velocity Time Integral 16.9 cm Right Atrial Pressure 5.0 mmHg Pulmonary Artery Systolic Pressu 9.1 mmHg PV Peak Velocity 114.0 cm/s RV Acceleration Time 0.1 s RV Ejection Time 0.4 s RV AcT/ET 0.3 FINDINGS Left Ventricle Normal left ventricular size. LV systolic function is normal with EF of 55-60%. No regional wall motion abnormalities. Diastolic function is indeterminate Right Ventricle The right ventricle is normal in size and function. Right Atrium The right atrium is normal in size. Left Atrium The left atrium is normal in size. Mitral Valve Structurally normal mitral valve without significant stenosis or prolapse. There is trace mitral regurgitation. Aortic Valve Structurally normal aortic valve without significant sclerosis or stenosis. There is no aortic regurgitation. Tricuspid Valve Structurally normal tricuspid valve without significant stenosis or regurgitation. Pulmonary artery systolic pressure is normal. Pulmonic Valve Not well visualized Pericardium Normal pericardium without effusion. Aorta Normal ascending aorta dimension. CONCLUSIONS LV systolic function is normal with EF of 55-60% Diastolic function is indeterminate Trace mitral regurgitaion Compared to prior echocardiogram from 10/31/2019, no significant changes are seen Chidi Coburn MD (Electronically Signed) Final Date: 24 May 2021 07:13 S
--- NOTE | 2021-05-23 18:38 | PM.HP ---
Providers/Chief Complaint Admitting Physician: Bala Collins MD Primary Care Provider: Christa Arana Chief Complaint: chest pain History of Present Illness Rimma White is a 50 year old female with past medical history of hypertension diabetes dyslipidemia, coronary artery disease status post stent (s/p PCI to LCx and RCA in 2019) , HFpEF , came in with chief complaint of on and off pressure-like substernal chest pain started last Friday, with radiation to left arm,present both at rest as well as with exertion ,accompanied with episodes of palpitation, as well as dizziness, ,relieved with S/L nitro. Has progressively worsened since Friday. Currently she denies any fever, cough, headache. Upon arrival in the ER she was worked up for above mentioned complaint. Pertinent imaging studies: X-ray chest: No acute findings. EKG: Sinus rhythm, no acute ST-T wave changes. Pertinent labs: WBC 9.5 , H&H: 15/44 , PLT : 271 , serum sodium 135 serum potassium 3.7 BUN / SCR : 11/0.6 , AST 34 ALT 52 ALP 122 Troponin trend: 7,7.25, Review of Systems General: Reports: 10 or more systems reviewed and unremarkable except in HPI and below Const: Denies: fever(s), chills, body aches, change in appetite or diaphoresis Card: Reports: palpitations and dyspnea on exertion; Denies: edema, swelling of feet/ankles, orthopnea or leg pain with exertion Resp: Denies: productive cough, wheezing or pain on inspiration GI: Denies: abdominal pain, diarrhea or constipation : Denies: flank pain Musc: Denies: back pain, extremity pain or extremity swelling Neuro: Denies: headache(s), difficulty walking or confusion Medications/Allergies Home Medications Medication Instructions Recorded Confirmed Last Taken Type fluoxetine 40 mg capsule 40 mg PO DAILY@15 cap 11/04/19 05/23/21 05/22/21 History alprazolam 0.25 mg tablet 0.5 mg PO BID PRN tab 11/19/19 05/23/21 10/12/20 History lisinopril 10 mg tablet 10 mg PO DAILY@15 tab 11/19/19 05/23/21 05/22/21 History metformin 1,000 mg tablet 1,000 mg PO BID@, tab 11/19/19 05/23/2105/23/22 History budesonide-formoterol HFA 160 1 puff INHALATION BID@,02/21/20 05/23/21 02/21/20 History mcg-4.5 mcg/actuation aerosol inhaler nitroglycerin 0.4 mg sublingual 0.4 mg SUBLINGUAL Q5M PRN #25 tab 05/02/20 05/23/21 Unknown Rx tablet (Nitrostat) potassium chloride 20 mEq 20 meq PO DAILY PRN #30 tab 05/18/20 05/23/21 10/12/20 Rx tablet,extended release empagliflozin 25 mg tablet 25 mg PO DAILY #90 tab 10/02/20 05/23/21 05/23/21 Rx (Jardiance) furosemide 40 mg tablet 40 mg PO DAILY PRN #30 tab 10/06/20 05/23/21 Unknown Rx isosorbide mononitrate 30 mg 15 mg PO BID #30 tab 02/19/21 05/23/21 05/23/21 Rx tablet,extended release 24 hr metoprolol succinate 25 mg 25 mg PO DAILY@15 tab 02/19/21 05/23/21 05/22/21 History tablet,extended release 24 hr pantoprazole 40 mg tablet,delayed 40 mg PO DAILY@15 #90 tab 03/27/21 05/23/21 05/22/21 Rx release atorvastatin 80 mg tablet 80 mg PO DAILY 05/23/21 05/23/21 05/22/21 History insulin degludec 100 unit/mL 20 unit SUBCUT BEDTIME 05/23/21 05/23/21 05/22/21 History subcutaneous solution (Tresiba U-100 Insulin) ticagrelor 90 mg tablet (Brilinta) 90 mg PO BID 05/23/21 05/23/21 05/23/21 History Allergies Allergy/AdvReac Type Severity Reaction Status Date / Time quetiapine [From Seroquel] Allergy Restless Verified 03/31/21 15:34 legs, acts like she is drunk tetracycline Allergy vomiting Verified 03/31/21 15:34 PFSH Acute PFSH: Medical History Asthma Coronary artery disease Diabetes Diastolic heart failure Hypertension Obesity Surgical History History of umbilical hernia repair Family History Other Hypertension Social History Smoking and tobacco status: current every day smoker Alcohol intake: current Alcohol intake frequency: holidays/special occasions only Vitals/I&O/Wt Last Vital Signs Pulse 90 05/23/21 18:33 Resp 18 05/23/21 18:33 BP 143/89 05/23/21 18:33 Pulse Ox 90 05/23/21 18:33 Weight last 48 hrs Weight 123.831 kg Physical Exam Const: COMMON NORMALS: patient oriented x3 HENMT: COMMON NORMALS: normocephalic, atraumatic, hearing grossly normal bilaterally and external ears normal HEAD & SCALP: normocephalic and atraumatic Chest: CHEST: Yes Symmetrical chest wall rise Resp: COMMON NORMALS: normal respiratory effort, No retractions, No use of accessory muscles and clear to auscultation bilaterally EFFORT & INSPECTION: Yes symmetric chest movement AUSCULTATION: clear to auscultation bilaterally Cardio: COMMON NORMALS: regular rate, regular rhythm, S1 normal heart sound present, S2 normal heart sound present, No gallops present (Cardio), No murmurs present (Cardio), No rub (Cardio) and Peripheral pulses 2+ throughout RATE: regular rate RHYTHM: regular rhythm HEART SOUNDS: S1 normal heart sound present and S2 normal heart sound present PERIPHERAL PULSES: Peripheral pulses 2+ throughout GI: COMMON NORMALS: Normal to inspection, nondistended, normoactive bowel sounds present, Soft to palpation, non-tender, No hepatosplenomegaly present and no masses AUSCULTATION: Yes normoactive bowel sounds PALPATION: Yes Soft to palpation and Yes No hepatosplenomegaly present RECTAL EXAM: deferred Extremity: COMMON NORMALS: no clubbing, cyanosis or edema and no pedal edema Neuro: COMMON NORMALS: patient oriented x3 Data : 05/23/21 13:33 05/23/21 14:15 A&P Assessment and plan (1) Diabetes: Status: Acute Qualifiers: Diabetes mellitus type: type 2 Diabetes mellitus manager terminal insulin use: without care home use Diabetes mellitus complication status: with circulatory complication Diabetes mellitus complication detail: with other circulatory complications Qualified Code(s): E11.59 - Type 2 diabetes mellitus with other circulatory complications (2) Obesity: Status: Acute (3) Coronary artery disease: Status: Acute Qualifiers: Coronary Disease-Associated Artery/Lesion type: [place] artery [place] vs. transplanted heart: [place] heart Associated angina: with unspecified angina Qualified Code(s): I25.119 - Atherosclerotic heart disease of [place] coronary artery with unspecified angina pectoris (4) Hypertension: Status: Acute Qualifiers: Hypertension type: essential hypertension Qualified Code(s): I10 - Essential (primary) hypertension (5) Chest pain: Status: Acute (6) (HFpEF) heart failure with preserved ejection fraction: Status: Acute Plan 50 year old female with past medical history of hypertension diabetes dyslipidemia, coronary artery disease status post stent (s/p PCI to LCx and RCA in 2019) , HFpEF , came in with chief complaint of on and off pressure-like substernal chest pain started last Friday, with radiation to left arm,present both at rest as well as with exertion ,accompanied with episodes of palpitation, as well as dizziness, ,relieved with S/L nitro. Has progressively worsened since Friday. Assessment: #Typical cardiac chest pain: Given her underlying risk factor history of coronary artery disease, diabetes ,morbid obesity hypertension. Makes it more concerning. Follow-up 2D echo Telemetry monitoring N.p.o. after midnight Cardiology consult Continue, aspirin, statin Brilinta, Imdur, beta-kary, sublingual nitro as needed #History of diabetes: SSI Carbohydrate consistent diet Monitor fingerstick glucose #History of hypertension: Lisinopril currently on hold anticipating possible cath Monitor blood pressure for now Continue metoprolol #History of coronary artery disease: Plan as 1 #History of heart failure with preserved ejection fraction: Currently compensated Monitor output charting Daily weight CODE STATUS: Full code #DVT prophylaxis: On Lovenox Attestations Medical Necessity Statement*: Patient needs to be in hospital for management of chest pain. Time Spent in Patient Care: Greater than 35 minutes (>than 50% of time spent in counselling and/or direct pt care on unit). Coding Level of Care Code Acute Magnetic Tape Winder for [facility] Diagnoses Diabetes E11.59 Diabetes mellitus type: type 2 Diabetes mellitus care home insulin use: without manager terminal use Diabetes mellitus complication status: with circulatory complication Diabetes mellitus complication detail: with other circulatory complications Obesity E66.9 Coronary artery disease I25.119 Coronary Disease-Associated Artery/Lesion type: [place] artery [place] vs. transplanted heart: [place] heart Associated angina: with unspecified angina Hypertension I10 Hypertension type: essential hypertension Chest pain R07.9 (HFpEF) heart failure with preserved ejection fraction I50.30
--- NOTE | 2021-05-23 19:01 | ECG_ITS ---
[facility] Test Date: 2021-05-24 Pat Name: Rimma White Department: Room: 104 Gender: Female Quality Control Projectionist: Su AcostaKevin : 1970 Requested By: Bala Collins Order Number: [id number] Lottie MD: Rachana Fields M.D. Interpretive Statements NAME OF STUDY: LEXISCAN SESTAMIBI STRESS TEST INDICATION: Chest Pain PROCEDURE: At the baseline, the blood pressure was 116/75 mmHg with a heart rate of 82 bpm and oxygen saturation 93%. The electrocardiogram showed normal sinus rhythm, normal axis. Possible old anterior infarct. The Lexiscan was infused over a period of 20 seconds. A total of 0.4 milligrams of Lexiscan was infused. The stress phase was continued for a total of 5 minutes. Heart rate at the end of the stress phase was 92 bpm, oxygen saturation 91% with a blood pressure of 141/86 mmHg. The EKG at the peak infusion revealed sinus rhythm with no significant ST-T wave changes. The study was terminated due to protocol completion. Sestamibi was injected 20 seconds after the Lexiscan infusion. Blood pressure at the end of the recovery phase was 124/83 mmHg, oxygen saturation 90% with a heart rate of 91 beats per minute. CONCLUSION: 1. No significant EKG changes with the LexiScan infusion. 2. No LexiScan induced chest pain or cardiac arrhythmia. 3. Normal blood pressure and heart rate response. 4. Sestamibi/sestamibi perfusion scan pending; see separate report. Electronically Signed On 05-28-2021 11:06:45 CDT by Rachana Fields M.D. [id number]
--- NOTE | 2021-05-23 19:12 | ECG_ITS ---
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 Measurements Intervals [place] Rate: 84 P: 66 VT: 190 QRS: 60 QRSD: 121 T: 65 QT: 391 QTc: 464 Interpretive Statements SINUS RHYTHM PROBABLE INFERIOR MYOCARDIAL INFARCTION , PROBABLY OLD [35 ms Q WAVE IN II/aVF] Compared to ECG 05/23/2021 15:16:30 No significant changes Electronically Signed On 05-24-2021 18:01:06 CDT by Chidi Coburn M.D. [id number]
[2021-05-23 20:51] LABS: Troponin 5 6HR 8.13 ng/L (0-10)
[2021-05-23 20:59] LABS: Troponin 5 6HR Delta 1.13 ng/L (0-12)
[2021-05-23 21:14] LABS: Glucose Point of Care 182 mg/dL (70-110)
[2021-05-23] MEDS: enoxaparin 40 mg/0.4 mL Syringe SUBCUT (21:34)
[2021-05-24 03:47] VITALS: BP 114/83; PULSE 85; RESP 22; TEMP 36.2; O2SAT 91
[2021-05-24 05:47] LABS: Basophils # 0.1 10^3/uL (0.0-0.1); Basophils % 0.5 %; Eosinophils # 0.3 10^3/uL (0.0-0.8); Eosinophils % 3.1 %; Hematocrit 44.7 % (37.0-47.0); Hemoglobin 14.6 g/dL (11.5-15.3); Lymphocytes # 2.7 10^3/uL (0.8-4.8); Lymphocytes % 29.1 %; Mean Corpuscular HGB Conc 32.7 g/dL (30.0-36.0); Mean Corpuscular Hemoglobin 29.8 pg (28.0-34.0); Mean Corpuscular Volume 91.2 fl (81-99); Mean Platelet Volume 10.7 fL (7.4-10.4); Monocytes # 0.5 10^3/uL (0.2-0.9); Neutrophils # 5.68 10^3/uL (1.8-7.7); Neutrophils % 62.1 %; Nucleated Red Blood Cells % 0 %; Platelet Count 233 10^3/cmm (130-400); Red Cell Distribution Width 13.7 % (12.1-15.1); White Blood Count 9.2 10^3/uL (4.0-10.0)
[2021-05-24 06:03] LABS: Anion Gap 15.9 (5-19); Blood Urea Nitrogen 14 mg/dL (6-20); Calcium 9.7 mg/dL (8.5-10.5); Carbon Dioxide 25 mmol/L (22-29); Chloride 103 mmol/L (98-107); Creatinine Clr Calc Pharmacy 149.8594; Glomerular Filtration Rate 106.7 mL/min (90-130); Glucose 125 mg/dL (65-115); Osmolality Calculated 292 mOsm/kg (285-295); Potassium 3.9 mmol/L (3.5-5.1); Sodium 140 mmol/L (136-145)
[2021-05-24 06:34] LABS: Glucose Point of Care 122 mg/dL (70-110)
--- NOTE | 2021-05-24 07:10 | P.CONIM_ITS ---
Providers/Reason For Consult Consulting Physician/Specialty*: Chidi Coburn MD/Cardiology Reason for Consult*: Chest pain Requesting Physician: Dr Collins Attending Physician: Bala Collins MD Primary Care Provider: Christa Arana History of Present Illness History of Present Illness Rimma White is a 50 year old female with PMH of hypertension, diabetes, dyslipidemia, CAD s/p PCI to LCx and RCA in 2019 has presented with substernal chest pressure for the last 1 week. According to patient she had an episode last friday. Then again noted it on friday and then on day of presentation. Nitro has relieved pain on all occasions. Was not severe. 50 year old female with past medical history of hypertension diabetes dyslipid emia, coronary artery disease status post stent (s/p PCI to LCx and RCA in 2019) , HFpEF , came in with chief complaint of on and off pressure-like substernal chest pain started last Friday, with radiation to left arm,present both at rest as well as with exertion ,accompanied with episodes of palpitation, as well as dizziness, ,relieved with S/L nitro. Has progressively worsened since Friday. Currently she denies any fever, cough, headache. Upon arrival in the ER she was worked up for above mentioned complaint. Review of Systems General: Reports: 10 or more systems reviewed and unremarkable except in HPI and below Const: Denies: fever(s), chills, body aches, change in appetite or diaphoresis Card: Reports: palpitations and dyspnea on exertion; Denies: edema, swelling of feet/ankles, orthopnea or leg pain with exertion Resp: Denies: productive cough, wheezing or pain on inspiration GI: Denies: abdominal pain, diarrhea or constipation : Denies: flank pain Musc: Denies: back pain, extremity pain or extremity swelling Neuro: Denies: headache(s), difficulty walking or confusion Medications/Allergies Home Medications Medication Instructions Recorded Confirmed Last Taken Type fluoxetine 40 mg capsule 40 mg PO DAILY@15 cap 11/04/19 05/23/21 05/22/21 History alprazolam 0.25 mg tablet 0.5 mg PO BID PRN tab 11/19/19 05/23/21 10/12/20 History lisinopril 10 mg tablet 10 mg PO DAILY@15 tab 11/19/19 05/23/21 05/22/21 Histo ry metformin 1,000 mg tablet 1,000 mg PO BID@ tab 11/19/19 05/23/21 05/23/21 History budesonide-formoterol HFA 160 1 puff INHALATION BID@02/21/20 05/23/21 02/21/20 History mcg-4.5 mcg/actuation aerosol inhaler nitroglycerin 0.4 mg sublingual 0.4 mg SUBLINGUAL Q5M PRN #25 tab 05/02/20 05/23/21 Unknown Rx tablet (Nitrostat) potassium chloride 20 mEq 20 meq PO DAILY PRN #30 tab 05/18/20 05/23/21 10/12/20 Rx tablet,extended release empagliflozin 25 mg tablet 25 mg PO DAILY #90 tab 10/02/20 05/23/21 05/23/21 Rx (Jardiance) furosemide 40 mg tablet 40 mg PO DAILY PRN #30 tab 10/06/20 05/23/21 Unknown Rx metoprolol succinate 25 mg 25 mg PO DAILY@15 tab 02/19/21 05/23/21 05/22/21 History tablet,extended release 24 hr pantoprazole 40 mg tablet,delayed 40 mg PO DAILY@15 #90 tab 03/27/21 05/23/21 05/22/21 Rx release atorvastatin 80 mg tablet 80 mg PO DAILY 05/23/21 05/23/21 05/22/21 History insulin degludec 100 unit/mL 20 unit SUBCUT BEDTIME 05/23/21 05/23/21 05/22/21 History subcutaneous solution (Tresiba U-100 Insulin) ticagrelor 90 mg tablet (Brilinta) 90 mg PO BID 05/23/21 05/23/21 05/23/21 History isosorbide mononitrate 30 mg 15 mg PO BID 30 Days #60 tab 05/24/21 Unknown Rx tablet,extended release 24 hr Allergies Allergy/AdvReac Type Severity Reaction Status Date / Time quetiapine [From Seroquel] Allergy Restless Verified 03/31/21 15:34 legs, acts like she is drunk tetracycline Allergy vomiting Verified 03/31/21 15:34 Current Medications Generic Name Dose Route Start Last Admin Trade Name Freq PRN Reason Stop Dose Admin Enoxaparin Sodium 40 mg 05/23/21 18:45 05/23/21 21:34 Enoxaparin 40 Mg/0.4 Ml Syringe SUBCUT 40 mg Q24H KUSUM Administration Fluticasone/Salmeterol 1 puff 05/23/21 20:00 05/23/21 21:10 Fluticasone-Salmeterol 250-50 Diskus INHALATION 1 puff BID.RESPIRATORY KUSUM Administration PFSH Acute PFSH: Medical History Asthma Coronary artery disease Diabetes Diastolic heart failure Hypertension Obesity Surgical History History of umbilical hernia repair Family History Other Hypertension Social History Smoking and tobacco status: current every day smoker Alcohol intake: current Alcohol intake frequency: holidays/special occasions only Vitals/I&O/Wt Last Vital Signs Temp 97.2 F L 05/24/21 03:47 Pulse 85 05/24/21 03:47 Resp 22 H 05/24/21 03:47 BP 114/83 05/24/21 03:47 Pulse Ox 91 05/24/21 03:47 05/23/21 05/24/21 05/24/21 22:59 06:59 14:59 Intake Total 360 / 360 0 / 360 Balance 360 / 360 0 / 360 Weight last 48 hrs Weight 283 lb Weight 273 lb Physical Exam Narrative: GENERAL: Patient is alert, awake and oriented x3. NECK: No jugular vein distension. HEENT: No cyanosis. No icterus. No pallor. HEART: Regular S1 and S2. No murmur, rub or gallop. LUNGS: Clear to auscultate bilaterally. ABDOMEN: Soft, nontender and nondistended. Positive bowel sounds. No guarding, rebound or tenderness. CENTRAL NERVOUS SYSTEM: Grossly nonfocal. EXTREMITIES: Lower extremities without edema bilaterally. Data : 05/24/21 05:05 05/24/21 05:05 A&P Assessment and plan (1) Chest pain: Status: Acute (2) Diastolic heart failure: Status: Acute Qualifiers: Heart failure chronicity: chronic Qualified Code(s): I50.32 - Chronic diastolic (congestive) heart failure (3) Hypertension: Status: Acute Qualifiers: Hypertension type: essential hypertension Qualified Code(s): I10 - Essential (primary) hypertension (4) Coronary artery disease: Status: Acute Qualifiers: Coronary Disease-Associated Artery/Lesion type: [place] artery [place] vs. transplanted heart: [place] heart Associated angina: with unspecified angina Qualified Code(s): I25.119 - Atherosclerotic heart disease of [place] coronary artery with unspecified angina pectoris (5) Diabetes: Status: Acute Qualifiers: Diabetes mellitus type: type 2 Diabetes mellitus seed mill superintendent insulin use: without skilled nursing use Diabetes mellitus complication status: with circulatory complication Diabetes mellitus complication detail: with other circulatory complications Qualified Code(s): E11.59 - Type 2 diabetes mellitus with other circulatory complications (6) Obesity: Status: Acute (7) (HFpEF) heart failure with preserved ejection fraction: Patient has presented with chest pain symptoms that have both typical and atypical features. Her symptoms have resolved with sublingual nitro. Troponin has not trended up. EKG does not show ischemia. ECHO shows normal LV systolic function. Lexiscan shows attenuation artifact vs small area of ischemia in the LAD territory. At this we will recommend medical therapy after discussion with patient who agrees with it. Continue Brilinta Start isosorbide mononitrate. Can uptitrate if needed Patient informed that if symptoms worsen or pain does not relieve with nitros x3, to come to the ER Thank you for involving us with care of this patient. Outpatient cardiology follow up in 1-2 weeks. Please call with questions Status: Acute Coding Level of Care Code Acute Lumber Trimmer for [facility] Fwd Diagnoses Chest pain R07.9 Diastolic heart failure I50.32 Heart failure chronicity: chronic Hypertension I10 Hypertension type: essential hypertension Coronary artery disease I25.119 Coronary Disease-Associated Artery/Lesion type: [place] artery [place] vs. transplanted heart: [place] heart Associated angina: with unspecified angina Diabetes E11.59 Diabetes mellitus type: type 2 Diabetes mellitus skilled nursing insulin use: without seed mill superintendent use Diabetes mellitus complication status: with circulatory complication Diabetes mellitus complication detail: with other circulatory complications Obesity E66.9 (HFpEF) heart failure with preserved ejection fraction I50.30
[2021-05-24 07:36] VITALS: BP 150/98; PULSE 86; RESP 20; TEMP 37; O2SAT 97
[2021-05-24] MEDS: regadenoson 0.4 Mg/5 ml Syringe IVP (08:17)
[2021-05-24 08:27] VITALS: BP 124/83; PULSE 93
[2021-05-24] MEDS: ticagrelor 90 mg Tablet PO (10:02)
[2021-05-24] MEDS: atorvastatin 40 mg Tablet 80 MG PO (10:02)
[2021-05-24] MEDS: isosorbide mononitrate ER 30 mg Tablet 15 MG PO (10:03)
--- NOTE | 2021-05-24 10:37 | PC.CHAP ---
Pastoral Care Encounter/Spiritual Assessment Type of Contact [] Declined orthodontic laboratory technician visit [] Patient/Family/Request visit [] Outpatient visit [] Follow-up visit [] Physician referral [] Code/Alert [x] Routine visit [] Staff referral [] Actively dying [] Patient sleeping [] Family support [] [] Out of room [] Palliative care [] [x] Receiving care in room [] Pre-surgical visit [] Trauma [] Long length of stay [] ICU visit [] Other: Relational/Emotional Strength [x] Patient feels connected with others/family/visitors/staff [] Distress [] Loneliness/isolation [] Abandonment Spirituality of Patient [x] Person of Kylee [] Attends Caodaism of their Kylee [x] Believes in Prayer [] Reads Bible or Jewish materials [] There are Spiritual issues to be addressed Senior Electrical Estimator Interventions [x] Prayer [x] Active listening [x] Non-anxious presence [x] Spiritual/emotional support [] Crisis/trauma care [x] Spiritual counseling [] Bereavement support [] Provided bereavement packet [] Provided Bible/devotional materials [] Provided toy/stuffed animal, coloring book to patient or family member [] Provided Communion [] Anointing/[place] [] Salvation [x] Completed spiritual assessment [] Other: Impact on Illness or Injury [] Angry [] Fearful [x] Anxious [] Often cries [] Exhaustion [] Unable to work [] Unable to attend nondenominational [] Unable to walk/stand [] Unable to read [] Unable to drive [] Unable to eat/drink [] Unable to sleep [] Unable to be with family [] Patient intubated [] Other: Summary going trough tests not suue about her health may beed to [place] for a proceeduer Time spent with patient 10 mins
[2021-05-24 11:22] VITALS: BP 118/84; PULSE 88; RESP 15; O2SAT 94
[2021-05-24 11:34] LABS: Glucose Point of Care 202 mg/dL (70-110)
[2021-05-24] MEDS: insulin lispro 100 unit/1 mL SUBCUT (12:25)
--- NOTE | 2021-05-24 13:52 | P.DS_ITS ---
Discharge Providers Date of Admission: 05/23/21 18:33 Date of Discharge: May 24, 2021 Attending Provider at Admission: Bala Collins MD Attending Provider at Discharge: Bala Collins MD Primary Care Provider: Christa Arana Diagnoses at Discharge Discharge Diagnosis (1) Diabetes: Status: Acute Qualifiers: Diabetes mellitus type: type 2 Diabetes mellitus long term care social worker insulin use: without care home use Diabetes mellitus complication status: with circulatory c omplication Diabetes mellitus complication detail: with other circulatory complications Qualified Code(s): E11.59 - Type 2 diabetes mellitus with other circulatory complications (2) Obesity: Status: Acute (3) Coronary artery disease: Status: Acute Qualifiers: Coronary Disease-Associated Artery/Lesion type: chin[place] artery [place] vs. transplanted heart: chinik heart Associated angina: with unspecified angina Qualified Code(s): I25.119 - Atherosclerotic heart disease of [place] coronary artery with unspecified angina pectoris (4) Hypertension: Status: Acute Qualifiers: Hypertension type: essential hypertension Qualified Code(s): I10 - Essential (primary) hypertension (5) Chest pain: Status: Acute (6) (HFpEF) heart failure with preserved ejection fraction: Status: Acute Reason for Visit Reason for Visit: chest pain Hospital Course Hospital Course HPI: Rimma White is a 50 year old female with past medical history of hypertension diabetes dyslipidemia, coronary artery disease status post stent (s/p PCI to LCx and RCA in 2019) , HFpEF , came in with chief complaint of on and off pressure-like substernal chest pain started last Friday, with radiation to left arm,present both at rest as well as with exertion ,accompanied with episodes of palpitation, as well as dizziness, ,relieved with S/L nitro. Has p rogressively worsened since Friday. Currently she denies any fever, cough, headache. Upon arrival in the ER she was worked up for above mentioned complaint. Pertinent imaging studies: X-ray chest:?No acute findings. EKG: Sinus rhythm, no acute ST-T wave changes. Pertinent labs: WBC 9.5 , H&H: 15/44 , PLT : 271 , serum sodium 135 serum potassium 3.7 BUN / SCR : 11/0.6 , AST 34 ALT 52 ALP 122 Troponin trend: 7,7.25,8.13. Hospital course: She was admitted for the management of typical cardiac chest pain: 2D echo during the hospital stay: ?LV systolic function is normal with EF of 55-60% ,Diastolic function is indeterminate. Trace mitral regurgitaion.Nuclear stress test: Myocardial perfusion imaging with decreased tracer uptake in basal to apical ?anterior and anterolateral gaona with subtle reversibility in apical anterior ?gaona.This likely represents attenuation artifact however small area of ischemia ?in LAD artery territory cannot be completely ruled out.? Interpretation is limited by breast attenuation artifact and patient size (BMI 50). She was continued on aspirin statin Brilinta, metoprolol succinate, Current plan is to continue with Imdur and follow her up as outpatient. Currently she is on Imdur 15 mg p.o. twice daily. Patient rested comfortably overnight during the hospital stay. Patient is being discharged in stable condition to home She will follow primary care physician and cardiology as an outpatient. She will also continued to be managed for other comorbid condition. Physical Exam Const: COMMON NORMALS: patient oriented x3 HENMT: COMMON NORMALS: normocephalic, atraumatic, hearing grossly normal bilaterally and external ears normal HEAD & SCALP: normocephalic and atraumatic EXTERNAL EAR: Yes external ears normal Chest: CHEST: Yes Symmetrical chest wall rise Resp: COMMON NORMALS: normal respiratory effort, No retractions, No use of accessory muscles and clear to auscultation bilaterally EFFORT & INSPECTION: Yes symmetric chest movement AUSCULTATION: clear to auscultation bilaterally Cardio: COMMON NORMALS: regular rate, regular rhythm, S1 normal heart sound present, S2 normal heart sound present, No gallops present (Cardio), No murmurs present (Cardio), No rub (Cardio) and Peripheral pulses 2+ throughout RATE: regular rate RHYTHM: regular rhythm HEART SOUNDS: S1 normal heart sound present and S2 normal heart sound present PERIPHERAL PULSES: Peripheral pulses 2+ throughout GI: COMMON NORMALS: Normal to inspection, nondistended, normoactive bowel sounds present, Soft to palpation, non-tender, No hepatosplenomegaly present and no masses AUSCULTATION: Yes normoactive bowel sounds PALPATION: Yes Soft to palpation and Yes No hepatosplenomegaly present RECTAL EXAM: deferred Extremity: COMMON NORMALS: no clubbing, cyanosis or edema and no pedal edema Neuro: COMMON NORMALS: patient oriented x3 Discharge Data Studies Completed and Pending Completed Studies During Hospitalization Category Date Time Status Cardiac Stress Test MIBI [Sestamibi Stress Test Request Exams 05/23/21 19:01 Draft ] Routine XR chest 1V portable [id number] Stat Exams 05/23/21 13:10 Completed NM gayatri perf SPECT r/s* [id number] Routine Nuc Med 05/24/21 19:02 Completed US echo complete [CV. echo complete* [id number]] Routine Ultrasound 05/23/21 18:38 Completed Radiology Impressions Chest X-Ray 05/23/21 13:10 IMPRESSION: No acute findings. Laboratory Results WBC 9.2 10^3/uL (4.0-10.0) 05/24/21 05:05 RBC 4.90 10^6/uL (4.1-5.3) 05/24/21 05:05 Hgb 14.6 g/dL (11.5-15.3) 05/24/21 05:05 Hct 44.7 % (37.0-47.0) 05/24/21 05:05 MCV 91.2 fl (81-99) 05/24/21 05:05 MCH 29.8 pg (28.0-34.0) 05/24/21 05:05 MCHC 32.7 g/dL (30.0-36.0) 05/24/21 05:05 RDW 13.7 % (12.1-15.1) 05/24/21 05:05 Plt Count 233 10^3/cmm (130-400) 05/24/21 05:05 MPV 10.7 fL (7.4-10.4) H 05/24/21 05:05 Neut % (Auto) 62.1 % 05/24/21 05:05 Lymph % (Auto) 29.1 % 05/24/21 05:05 [place] % (Auto) 5.0 % 05/24/21 05:05 Eos % (Auto) 3.1 % 05/24/21 05:05 Baso % (Auto) 0.5 % 05/24/21 05:05 Neut # (Auto) 5.68 10^3/uL (1.8-7.7) 05/24/21 05:05 Lymph # (Auto) 2.7 10^3/uL (0.8-4.8) 05/24/21 05:05 [place] # (Auto) 0.5 10^3/uL (0.2-0.9) 05/24/21 05:05 Eos # (Auto) 0.3 10^3/uL (0.0-0.8) 05/24/21 05:05 Baso # (Auto) 0.1 10^3/uL (0.0-0.1) 05/24/21 05:05 Nucleated RBC % (auto) 0 % 05/24/21 05:05 Nucleated RBCs # 0.0 /100WBC 05/24/21 05:05 Sodium 140 mmol/L (136-145) 05/24/21 05:05 Potassium 3.9 mmol/L (3.5-5.1) 05/24/21 05:05 Chloride 103 mmol/L (98-107) 05/24/21 05:05 Carbon Dioxide 25 mmol/L (22-29) 05/24/21 05:05 Anion Gap 15.9 (5-19) 05/24/21 05:05 BUN 14 mg/dL (6-20) 05/24/21 05:05 Creatinine 0.6 mg/dL (0.5-0.9) 05/24/21 05:05 GFR Calculation 106.7 mL/min (90-130) 05/24/21 05:05 Glucose 125 mg/dL (65-115) H 05/24/21 05:05 POC Glucose 202 mg/dL (70-110) H 05/24/21 11:00 Calculated Osmolality 292 mOsm/kg (285-295) 05/24/21 05:05 Calcium 9.7 mg/dL (8.5-10.5) 05/24/21 05:05 Magnesium 2.0 mg/dL (1.7-2.3) 05/24/21 05:05 Total Bilirubin 0.8 mg/dL (0.15-1.2) 05/23/21 14:15 AST 34 U/L (0-32) H 05/23/21 14:15 ALT 52 U/L (0-33) H 05/23/21 14:15 Alkaline Phosphatase 122 IU/L (35-105) H 05/23/21 14:15 Creatine Kinase 55 U/L (26-192) 05/23/21 14:15 Troponin T Baseline 7 ng/L (0-10) 05/23/21 14:15 Troponin T 120 Minute 7.25 ng/L (0-10) 05/23/21 16:20 Delta Troponin T 0.25 ABS# (0-10) 05/23/21 16:20 Troponin T Hi Sens 6Hr 8.13 ng/L (0-10) 05/23/21 20:23 Troponin T Hi Sens 6Hr Delta 1.13 ng/L (0-12) 05/23/21 20:23 Total Protein 7.2 g/dL (6.6-8.7) 05/23/21 14:15 Albumin 4.2 g/dL (3.5-5.2) 05/23/21 14:15 Globulin 3.0 g/dL (1.3-4.6) 05/23/21 14:15 Urine Color Straw (Yellow) 05/23/21 13:40 Urine Appearance Clear (CLEAR) 05/23/21 13:40 Urine pH 7 (5-7) 05/23/21 13:40 Ur Specific [place] 1.010 (1.005-1.030) 05/23/21 13:40 Urine Protein Neg (Negative) 05/23/21 13:40 Urine Glucose (UA) 4+ (Normal) H 05/23/21 13:40 Urine Ketones Negative (Negative) 05/23/21 13:40 Urine Blood Neg (Negative) 05/23/21 13:40 Urine Nitrate Negative (Negative) 05/23/21 13:40 Urine Bilirubin Neg (Negative) 05/23/21 13:40 Urine Urobilinogen Norm mg/dL (Negative) 05/23/21 13:40 Ur Leukocyte Esterase Negative (Negative) 05/23/21 13:40 Vitals Last Vital Signs Temp 98.6 F 05/24/21 07:36 Pulse 88 05/24/21 11:22 Resp 15 05/24/21 11:22 BP 118/84 05/24/21 11:22 Pulse Ox 94 05/24/21 11:22 Discharge Plan Discharge Patient Disposition: Home Condition: Stable Prescriptions: Continued fluoxetine 40 mg capsule 40 mg PO DAILY@15 0RF alprazolam 0.25 mg tablet 0.5 mg PO BID PRN (Reason: anxiety) 0RF lisinopril 10 mg tablet 10 mg PO DAILY@15 0RF metformin 1,000 mg tablet 1,000 mg PO BID@15,22 0RF nitroglycerin [Nitrostat] 0.4 mg tablet, sublingual 0.4 mg sublingual Q5M PRN (Reason: chest pain) Qty: 25 3RF Rx Instructions: do not exceed 3 doses per episode potassium chloride 20 mEq tablet extended release 20 meq PO DAILY PRN (Reason: edema) Qty: 30 3RF Rx Instructions: when taking Lasix Jardiance 25 mg tablet 25 mg PO DAILY Qty: 90 3RF Rx Instructions: take 1 tablet once a day metoprolol succinate 25 mg tablet extended release 24 hr 25 mg PO DAILY@15 0RF furosemide 40 mg tablet 40 mg PO DAILY PRN (Reason: edema) Qty: 30 6RF Rx Instructions: for 3 days daily then prn pantoprazole 40 mg tablet,delayed release (DR/EC) 40 mg PO DAILY@15 Qty: 90 3RF budesonide-formoterol 160-4.5 mcg/actuation HFA aerosol inhaler 1 puff INHALATION BID@15,22 0RF atorvastatin 80 mg tablet 80 mg PO DAILY 0RF Brilinta 90 mg tablet 90 mg PO BID 0RF Tresiba U-100 Insulin 100 unit/mL Solution 20 unit SUBCUT BEDTIME 0RF isosorbide mononitrate 30 mg tablet extended release 24 hr 15 mg PO BID 30 Days Qty: 60 2RF Discharge Orders: Discharge Order (Routine); Ordered 05/24/21 Ordered By: Bala Collins Referrals: Chidi Coburn M.D [Physician] - 1 month Christa Arana PA [Primary Care Provider] - 06/07/21 8:00 am Discharge Diet: Diabetic Discharge Activity: Resume usual activity Patient Instructions: Opioid Safety Discharge Attestations Time Spent in Discharge Care*: greater than 30 min Specific Discharge Activities: educating patient, educating and/or supporting family/caregiver, discussing with pcp/other providers, discussing with adult protective caseworker/social workers/dc planners, documenting/other paperwork and evaluating patient/reviewing data Status at Discharge: Cognitive status at discharge: cognitively intact , Behavioral status at discharge: cooperative , Quality Metrics Clinical Quality Measures [ No reported AMI, CVA or VTE this stay] Coding Level of Care Code Acute g FW DC note Diagnoses Diabetes E11.59 Diabetes mellitus type: type 2 Diabetes mellitus long term care social worker insulin use: without long term care social worker use Diabetes mellitus complication status: with circulatory complication Diabetes mellitus complication detail: with other circulatory complications Obesity E66.9 Coronary artery disease I25.119 Coronary Disease-Associated Artery/Lesion type: [place] artery [place] vs. transplanted heart: [place] heart Associated angina: with unspecified angina Hypertension I10 Hypertension type: essential hypertension Chest pain R07.9 (HFpEF) heart failure with preserved ejection fraction I50.30
[2021-05-24 14:00] VITALS: PULSE 88
--- NOTE | 2021-05-24 19:02 | NMCV_ITS ---
NM gayatri perf SPECT r/s* [id number] Haley Whitely Age: 50 Gender: F : 1970 Exam Date: 05/24/2021 07:28 Ordering Phys: Bala Collins MD Technologist: RODNEY Figueroa Exam Location: [facility] Indications: CHEST PAIN STRESS TEST Please see separate stress test report in [facility] for full findings IMAGE PROTOCOL Rest/Stress 1 Lexiscan Day Radiopharmaceutical Dose (mCi) Administration Site Administered by Rest: Tc-99m 11.0 IV RODNEY Peters Sestamibi Stress:Tc-99m 33.0 IV RODNEY Peters Sestamibi Rest: 24-May-2021 60 Discovery 630 Stress: 24-May-2021 30 Discovery 630 0.4mg Lexiscan. Images obtained in supine and prone position. SPECT RESULTS Technical Quality: Good Raw Data Analysis: Breast attenuation, sub diaphragmatic attenuation Image Corrections: No attenuation or motion correction applied Summed Stress Score: 7 Summed Rest Score: 8 Summed Difference Score: 2 PERFUSION FINDINGS Medium size perfusion abnormality of mild to moderate severity of basal to apical anterior, mid anterolateral, apical lateral gaona on rest images with somewhat improved tracer uptake in the basal anterior and apical lateral gaona on supine stress images. There is some reversibility in apical anterior wall on supine stress images. Prone stress images show marked improvement in basal to mid anterior and mid lateral gaona. FUNCTIONAL RESULTS (calculated via Gated SPECT) Stress Image LV EF (%): 51 Stress EDV (mL):134 TID: 1.06 Stress ESV (mL):65 FUNCTIONAL FINDINGS: The left ventricle is normal in size. Transient Ischemia Dilatation of 1.1. The left ventricular ejection fraction is mildly decreased with a value of 51%. No regional wall motion abnormality. IMPRESSIONS 1. Myocardial perfusion imaging with decreased tracer uptake in basal to apical anterior and anterolateral gaona with subtle reversibility in apical anterior gaona. 2. This likely represents attenuation artifact however small area of ischemia in LAD artery territory cannot be completely ruled out. Interpretation is limited by breast attenuation artifact and patient size (BMI 50). 3. Overall left ventricular systolic function is low normal without regional wall motion abnormalities, LVEF=51%. 3. Transient ischemic dilation index of 1.1. 4. No EKG changes with Lexiscan infusion. Please refer to separate report for details. Rachana Fields MD (Electronically Signed) Final Date: 24 May 2021 13:22 S
== END 2021-05-24 15:06 | disposition home or self-care (01) ==
LOC: ER 17:03 → CSU 05-24 00:08
PROVIDERS: Admitting Provider Internal Medicine; Emergency Provider Family Medicine; PCP Physician Assistant; Visit Provider Internal Medicine
DX: R07.9 Chest pain, unspecified (principal); E11.59 Type 2 diabetes mellitus with other circulatory complications; E66.9 Obesity, unspecified; Z68.43 Body mass index [BMI] 50.0-59.9, adult; I25.119 Atherosclerotic heart disease of native coronary artery with unspecified angina pectoris; I11.0 Hypertensive heart disease with heart failure; I50.30 Unspecified diastolic (congestive) heart failure; E78.5 Hyperlipidemia, unspecified; Z95.5 Presence of coronary angioplasty implant and graft; Z79.4 Long term (current) use of insulin; F17.210 Nicotine dependence, cigarettes, uncomplicated
CPT/HCPCS: 36415; 36416; 71045; 78452; 80048; 80053; 81003; 82550; 82962; 83735; 84484; 85025; 93005; 93017; 93306; 94640; 96372; 96374; 96376; 99285; A9500; G0378; J1650; J1815; J2405; J2785

== ENCOUNTER 2022-11-17 18:05 | Emergency (ER) | payer BC, SELFPAY ==
[2022-11-17 18:19] VITALS: BP 144/78; PULSE 80; TEMP 36.5; O2SAT 94; BMI 52.7
--- NOTE | 2022-11-17 18:28 | CTR_ITS ---
PROCEDURE INFORMATION: Exam: CT Abdomen And Pelvis With Contrast Exam date and time: 11/17/2022 7:05 PM Age: 52 years old Clinical indication: Nausea and vomiting; Prior surgery; Surgery date: 6+ months; Surgery type: Bladder sling. Hysterectomy; Patient HX: N/v. History of pancreatitis; Additional info: Vomiting, dizziness, HX of pancreatitis TECHNIQUE: Imaging protocol: Computed tomography of the abdomen and pelvis with contrast. Radiation optimization: All CT scans at this facility use at least one of these dose optimization techniques: automated exposure control; mA and/or kV adjustment per patient size (includes targeted exams where dose is matched to clinical indication); or iterative reconstruction. Contrast material: OMNI 350; Contrast volume: 100 ml; Contrast route: INTRAVENOUS (IV); REPORTING DATA: Count of CT and Cardiac NM exams in prior 12 months: This patient has received 0 known CTs and 0 known cardiac nuclear medicine studies in the 12 months prior to the current study. COMPARISON: CT abdomen pelvis w con* [id number] 04/30/2021 3:31 PM RADIATION DOSE METRICS: Total DLP (mGy-cm): 2252.54 FINDINGS: Heart: The heart is normal size with coronary artery and valvular calcifications. Diaphragm: There is a moderate hiatal hernia. Liver: The liver is enlarged, measuring 20.5 cm. Gallbladder and bile ducts: Normal. No calcified stones. No ductal dilation. Pancreas: Normal. No ductal dilation. Spleen: Normal. No splenomegaly. Adrenal glands: Normal. No mass. Kidneys and ureters: Normal. No hydronephrosis. Stomach and bowel: Scattered diverticula without evidence of acute diverticulitis or perforation. Loops of small bowel in the left upper quadrant with thickened gaona consistent with infectious or inflammatory enteritis. Appendix: No evidence of appendicitis. Intraperitoneal space: Unremarkable. No free air. No significant fluid collection. Vasculature: There is severe aortoiliac atherosclerosis. Lymph nodes: Unremarkable. No enlarged lymph nodes. Urinary bladder: Unremarkable as visualized. Reproductive: The patient has had a hysterectomy. Bones/joints: Unremarkable. No acute fracture. Soft tissues: Unremarkable. CT/CT abdomen pelvis w con* [id number] IMPRESSION: Infectious or inflammatory enteritis. Moderate hiatal hernia. Hepatomegaly. Diverticulosis without acute diverticulitis. Severe atherosclerosis. Status post hysterectomy.
--- NOTE | 2022-11-17 18:28 | XRR_ITS ---
PROCEDURE INFORMATION: Exam: XR Chest Exam date and time: 11/17/2022 6:55 PM Age: 52 years old Clinical indication: Other: Dizziness/n/v; Patient HX: Dizziness with n/v; Additional info: Dizzy, vomiting TECHNIQUE: Imaging protocol: Radiologic exam of the chest. Views: 1 view. COMPARISON: CR XR chest 1V portable [id number] 05/23/2021 12:18 PM FINDINGS: Lungs: Unremarkable. No consolidation. Pleural spaces: Unremarkable. No pleural effusion. No pneumothorax. Heart/Mediastinum: Unremarkable. No cardiomegaly. Bones/joints: Unremarkable. XR/XR chest 1V portable [id number] IMPRESSION: No acute findings.
--- NOTE | 2022-11-17 18:28 | CTR_ITS ---
PROCEDURE INFORMATION: Exam: CT Head Without Contrast Exam date and time: 11/17/2022 7:01 PM Age: 52 years old Clinical indication: Patient HX: Dizziness with n/v TECHNIQUE: Imaging protocol: Computed tomography of the head without contrast. Radiation optimization: All CT scans at this facility use at least one of these dose optimization techniques: automated exposure control; mA and/or kV adjustment per patient size (includes targeted exams where dose is matched to clinical indication); or iterative reconstruction. REPORTING DATA: Count of CT and Cardiac NM exams in prior 12 months: This patient has received 0 known CTs and 0 known cardiac nuclear medicine studies in the 12 months prior to the current study. COMPARISON: No relevant prior studies available. RADIATION DOSE METRICS: Total DLP (mGy-cm): 1120.38 FINDINGS: Brain: No CT evidence for acute ischemia, mass or hemorrhage. Cerebral ventricles: No extra-axial fluid collection, midline shift or hydrocephalus. Sulci and ventricles are appropriate in size for age. Pituitary gland and sella: The pituitary is atrophic which is usually incidental at the patient's age. Paranasal sinuses: Visualized sinuses are unremarkable. No fluid levels. Mastoid air cells: Visualized mastoid air cells are well aerated. Bones/joints: Unremarkable. No acute fracture. Soft tissues: Unremarkable. CT/CT head wo con* [id number] IMPRESSION: Unremarkable brain .
--- NOTE | 2022-11-17 18:31 | ECG_ITS ---
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 Measurements Intervals [place] Rate: 75 P: 70 FL: 215 QRS: 48 QRSD: 92 T: 55 QT: 394 QTc: 441 Interpretive Statements SINUS RHYTHM WITH FIRST DEGREE AV BLOCK LOW QRS VOLTAGE IN PRECORDIAL LEADS [QRS DEFLECTION < 1.0 mV IN CHEST LEADS] Compared to ECG 05/23/2021 21:26:43 First degree AV block now present Low QRS voltage now present Myocardial infarct finding no longer present Electronically Signed On 11-18-2022 6:55:59 CDT by Rachana Fields M.D. [id number]
--- NOTE | 2022-11-17 18:34 | ED_ITS ---
HPI - Nausea/Vomiting/Diarrhea General: Chief complaint: Nausea/Vomiting/Diarrhea Stated complaint: N/V Time Seen by Provider: 11/17/22 18:15 History of Present Illness: 52-year-old female with a history of heart failure with preserved EF, diabetes, pancreatitis, diverticulitis, and fatty liver disease. She presents with several days of vomiting, cough, feeling full, and short of breath. Today she woke up dizzy. The dizziness has progressed throughout the day, such that things seem to move when she opens her eyes. She has vomited several times today. She had an episode of epistaxis today. She says that her belly feels full, as in of fluid, but does not overly hurt. Associated nausea: Yes Associated symtoms: Reports change in vision, dizziness and nausea; Denies chest pain, headache(s) or palpitations Review of Systems Const: Denies: fever(s), chills or body aches Eyes: Reports: change in vision ENMT: Denies: throat pain Card: Denies: chest pain or palpitations Resp: Reports: dyspnea and non-productive cough; Denies: productive cough or wheezing GI: Reports: nausea and vomiting; Denies: abdominal pain, diarrhea or hematochezia : Denies: difficulty voiding Skin/Breast: Denies: rash Neuro: Reports: weakness in extremities (Generalized) and dizziness; Denies: headache(s) or confusion PFSH ED PFSH: Medical History (HFpEF) heart failure with preserved ejection fraction Asthma Chest pain Coronary artery disease Diabetes Diastolic heart failure Hypertension Obesity Surgical History History of umbilical hernia repair Family History Other Hypertension Social History Smoking and tobacco status: current every day smoker Alcohol intake: current Alcohol intake frequency: holidays/special occasions only Physical Exam Const: GENERAL APPEARANCE: cooperative and ill appearing NUTRITIONAL APPEARANCE: obese HENMT: COMMON NORMALS: normocephalic and atraumatic HEAD & SCALP: normocephalic and atraumatic FACE & SINUS: normal facial exam NOSE: Epistaxis present (None currently. Dried blood present) Eye: COMMON NORMALS: Equal, round and reactive pupils present and EOMs intact bilaterally PUPIL: Yes Equal, round and reactive pupils present Neck/C-Spine: GENERAL: Yes trachea midline Chest: CHEST: Yes Symmetrical chest wall rise Resp: COMMON NORMALS: normal respiratory effort, No retractions, No use of accessory muscles and clear to auscultation bilaterally AUSCULTATION: clear to auscultation bilaterally and diminished lung sounds Cardio: COMMON NORMALS: regular rate and regular rhythm RATE: regular rate RHYTHM: regular rhythm GI: COMMON NORMALS: Normal to inspection, nondistended, normoactive bowel sounds present, Soft to palpation and non-tender PALPATION: Yes Soft to palpation Extremity: GENERAL: Yes edema (Mild) Neuro: WILLY COMA SCALE: document GCS findings Willy coma scale eye opening: Spontaneous Willy coma scale verbal response: Orientated [place] coma scale motor response: Obey commands Willy coma scale total score: 15 CRANIAL NERVES: Yes CN normal except as noted SPEECH: speech normal MOTOR EXAM: Normal motor muscle tone present throughout Course Vital Signs: Vital signs: Vital Signs Temperature 97.7 F 11/17/22 18:19 Pulse Rate 81 11/17/22 20:17 Respiratory Rate 18 11/17/22 20:17 Blood Pressure 143/78 11/17/22 19:35 Pulse Oximetry 96 11/17/22 20:17 Oxygen Delivery Me thod Room Air 11/17/22 20:17 Oxygen Flow Rate 2 11/17/22 19:35 MDM - Nausea/Vomiting/Diarrhea Medical Decision Making Patient is resting comfortably now. No more vomiting here. She is off of oxygen. White blood cell count is 12.6. CBC is otherwise not remarkable. BMP not remarkable. Liver enzymes are normal save alk phos mild elevation. Chest x-ray shows nothing acute. Head CT is not remarkable. Belly CT shows infectious or inflammatory enteritis and other chronic findings. She is negative for COVID, serum ketones are negative. She received a small fluid bolus here, we will get her up and walk her and see how dizzy she is and plan for discharge. Lab Data 11/17/22 19:36 11/17/22 19:36 Radiology Impressions Abdomen/Pelvis CT 11/17/22 18:28 IMPRESSION: Infectious or inflammatory enteritis. Moderate hiatal hernia. Hepatomegaly. Diverticulosis without acute diverticulitis. Severe atherosclerosis. Status post hysterectomy. Chest X-Ray 11/17/22 18:28 IMPRESSION: No acute findings. Head CT 11/17/22 18:28 IMPRESSION: Unremarkable brain . Laboratory Results WBC 12.64 10^3/uL (3.29-11.43) H 11/17/22 19:36 RBC 4.95 10^6/uL (3.85-5.65) 11/17/22 19:36 Hgb 14.60 g/dL (11.27-16.99) 11/17/22 19:36 Hct 44.7 % (36-47) 11/17/22 19:36 MCV 90.3 fl (85-98) 11/17/22 19:36 MCH 29.5 pg (27-33) 11/17/22 19:36 MCHC 32.7 g/dL (30-55) 11/17/22 19:36 RDW 13.7 % (12.1-15.1) 11/17/22 19:36 Plt Count 218 10^3/cmm (157-399) 11/17/22 19:36 MPV 10.7 fL (7.4-10.4) H 11/17/22 19:36 Neut % (Auto) 81.0 % 11/17/22 19:36 Lymph % (Auto) 13.0 % 11/17/22 19:36 [place] % (Auto) 3.6 % 11/17/22 19:36 Eos % (Auto) 1.1 % 11/17/22 19:36 Baso % (Auto) 0.6 % 11/17/22 19:36 Neut # (Auto) 10.25 10^3/uL (1.8-7.7) H 11/17/22 19:36 Lymph # (Auto) 1.6 10^3/uL (0.8-4.8) 11/17/22 19:36 [place] # (Auto) 0.5 10^3/uL (0.2-0.9) 11/17/22 19:36 Eos # (Auto) 0.1 10^3/uL (0.0-0.8) 11/17/22 19:36 Baso # (Auto) 0.1 10^3/uL (0.0-0.1) 11/17/22 19:36 Nucleated RBC % (auto) 0 % 11/17/22 19:36 Nucleated RBCs # 0.0 /100WBC 11/17/22 19:36 PT 13.00 SECONDS (12.1-14.9) 11/17/22 18:17 INR 0.95 (0.8-1.2) 11/17/22 18:17 Sodium 137 mmol/L (136-145) 11/17/22 19:36 Potassium 4.4 mmol/L (3.5-5.1) 11/17/22 19:36 Chloride 101 mmol/L (98-107) 11/17/22 19:36 Carbon Dioxide 28 mmol/L (22-29) 11/17/22 19:36 Anion Gap 12.4 (5-19) 11/17/22 19:36 BUN 9 mg/dL (6-20) 11/17/22 19:36 Creatinine 0.6 mg/dL (0.5-0.9) 11/17/22 19:36 GFR Calculation 105.8 mL/min (90-130) 11/17/22 19:36 Glucose 177 mg/dL (65-115) H 11/17/22 19:36 Calculated Osmolality 287 mOsm/kg (285-295) 11/17/22 19:36 Lactic Acid 1.3 mmol/L (0.5-2.2) 11/17/22 19:36 Calcium 9.3 mg/dL (8.5-10.5) 11/17/22 19:36 Magnesium 2.1 mg/dL (1.7-2.3) 11/17/22 19:36 Total Bilirubin 0.6 mg/dL (0.15-1.2) 11/17/22 19:36 AST 21 U/L (0-32) 11/17/22 19:36 ALT 40 U/L (0-33) H 11/17/22 19:36 Alkaline Phosphatase 151 U/L (35-105) H 11/17/22 19:36 C-Reactive Protein 3.3 mg/L (0.0-4.9) 11/17/22 19:36 NT-Pro-B Natriuret Pep 69 pg/mL (0-125) 11/17/22 19:36 Total Protein 6.9 g/dL (6.6-8.7) 11/17/22 19:36 Albumin 3.9 g/dL (3.5-5.2) 11/17/22 19:36 Globulin 3.0 g/dL (1.3-4.6) 11/17/22 19:36 Lipase 19 U/L (13-60) 11/17/22 19:36 HCG, Qual Negative (Negative) 11/17/22 19:36 Urine Color Yellow (Yellow) 11/17/22 19:57 Urine Appearance Clear (CLEAR) 11/17/22 19:57 Urine pH 7 (5-7) 11/17/22 19:57 Ur Specific [place] 1.005 (1.005-1.030) 11/17/22 19:57 Urine Protein 1+ (Negative) H 11/17/22 19:57 Urine Glucose (UA) Norm (Normal) 11/17/22 19:57 Urine Ketones Negative (Negative) 11/17/22 19:57 Urine Blood Trace (Negative) H 11/17/22 19:57 Urine Nitrate Negative (Negative) 11/17/22 19:57 Urine Bilirubin Neg (Negative) 11/17/22 19:57 Urine Urobilinogen Neg mg/dL (Negative) 11/17/22 19:57 Ur Leukocyte Esterase Trace (Negative) H 11/17/22 19:57 Urine RBC Rare /hpf (0-2) 11/17/22 19:57 Urine WBC 0-4 /hpf (0-5) H 11/17/22 19:57 Ur Squamous Epith Cells 10-15 /hpf (0-5) H 11/17/22 19:57 Amorphous Sediment Not Reportable 11/17/22 19:57 Urine Bacteria Trace /hpf (NONE) 11/17/22 19:57 Urine Mucus 3+ /hpf 11/17/22 19:57 Serum Ketones Negative (Negative) 11/17/22 19:36 SARS-CoV-2 Ag (Rapid) negative (Negative) 11/17/22 18:58 All radiology interpretation(s) finalized by discharge Discharge Plan Discharge Patient Disposition: Home Clinical Impression: Enteritis Condition: Stable Prescriptions: New metronidazole 500 mg tablet 500 mg PO BID 7 Days Qty: 14 0RF ondansetron 4 mg film 4 mg PO DAILY PRN (Reason: nausea and vomiting) Qty: 10 0RF No Action fluoxetine 40 mg capsule 40 mg PO DAILY@15 alprazolam 0.25 mg tablet 0.5 mg PO BID PRN (Reason: anxiety) lisinopril 10 mg tablet 10 mg PO DAILY@15 nitroglycerin [Nitrostat] 0.4 mg tablet, sublingual 0.4 mg sublingual Q5M PRN (Reason: chest pain) Qty: 25 3RF Rx Instructions: do not exceed 3 doses per episode potassium chloride 20 mEq tablet extended release 20 meq PO DAILY PRN (Reason: edema) Qty: 30 3RF Rx Instructions: when taking Lasix Ozempic 1 mg/dose (4 mg/3 mL) pen injector 1 mg SUBCUT Q7D 30 Days Qty: 3.75 0RF Rx Instructions: 0.50mg weekly for 1 month then 1mg weekly for 1month then 2mg weekly Ozempic 2 mg/dose (8 mg/3 mL) pen injector 2 mg SUBCUT Q7D 30 Days Qty: 3.75 0RF Rx Instructions: 0.50mg weekly for 1 month then 1mg weekly for 1month then 2mg weekly Ozempic 0.25 mg or 0.5 mg (2 mg/3 mL) pen injector 0.5 mg SUBCUT Q7D 30 Days Qty: 4 0RF Rx Instructions: 0.50mg weekly for 1month, then 1mg weekly for 1 month then 2mg weekly metformin 1,000 mg tablet 1,000 mg PO BID 90 Days Qty: 180 0RF fluconazole 150 mg tablet 150 mg PO ONCE Qty: 1 0RF furosemide 40 mg tablet 40 mg PO DAILY PRN (Reason: edema) Qty: 30 6RF Rx Instructions: for 3 days daily then prn metoprolol succinate 25 mg tablet extended release 24 hr 25 mg PO DAILY@15 Qty: 30 0RF Rx Instructions: MUST have follow-up for further refills pantoprazole 40 mg tablet,delayed release (DR/EC) 40 mg PO DAILY@15 Qty: 30 0RF Rx Instructions: MUST have follow-up for further refills insulin degludec [Tresiba FlexTouch U-100] 100 unit/mL (3 mL) insulin pen 60 unit SUBCUT BEDTIME 90 Days Qty: 60 0RF budesonide-formoterol 160-4.5 mcg/actuation HFA aerosol inhaler 1 puff INHALATION BID@15,22 atorvastatin 80 mg tablet 80 mg PO DAILY Brilinta 90 mg tablet 90 mg PO BID isosorbide mononitrate 30 mg tablet extended release 24 hr 15 mg PO BID 30 Days Qty: 60 2RF Discharge Orders: Discharge ED (Routine); Ordered 11/17/22 Ordered By: Antonio Clark Referrals: Christa Arana PA [Primary Care Provider] - 1-3 days Patient Instructions: Enteritis (ED), Opioid Safety, Pain Management Activity Restrictions/Additional Instructions: Follow a liquid diet for at least 24 hours. If no vomiting for 24 hours, you may slowly add food back in. Use nausea medication scheduled every 4 hours while awake for the first 24 hours, then as needed. Other medication as directed. Return for vomiting despite treatment, worsening dizziness despite treatment, other concerning symptoms. See your doctor this week. Coding Level of Care Code ED Executive Sous Chef for Meli Sawant
[2022-11-17] MEDS: LORazepam 2 mg/mL INJ 1 mL 1 MG IVP (18:58)
[2022-11-17] MEDS: ondansetron 2 mg/ML SDV 2 mL 4 MG IVP (18:58)
[2022-11-17 19:03] LABS: INR 0.95 (0.8-1.2)
[2022-11-17] MEDS: iohexol 350 mg/mL 500 mL Btl (per mL) IV (19:07)
[2022-11-17 19:29] LABS: SARS Covid-2 Antigen negative (Negative)
[2022-11-17 19:35] VITALS: BP 143/78; PULSE 85; RESP 18; O2SAT 93
[2022-11-17 19:59] LABS: Basophils # 0.1 10^3/uL (0.0-0.1); Basophils % 0.6 %; Eosinophils # 0.1 10^3/uL (0.0-0.8); Eosinophils % 1.1 %; Hematocrit 44.7 % (36-47); Lymphocytes # 1.6 10^3/uL (0.8-4.8); Mean Corpuscular HGB Conc 32.7 g/dL (30-55); Mean Corpuscular Hemoglobin 29.5 pg (27-33); Mean Corpuscular Volume 90.3 fl (85-98); Mean Platelet Volume 10.7 fL (7.4-10.4); Monocytes # 0.5 10^3/uL (0.2-0.9); Monocytes % 3.6 %; Neutrophils # 10.25 10^3/uL (1.8-7.7); Nucleated Red Blood Cells % 0 %; Platelet Count 218 10^3/cmm (157-399); Red Blood Count 4.95 10^6/uL (3.85-5.65); Red Cell Distribution Width 13.7 % (12.1-15.1); White Blood Count 12.64 10^3/uL (3.29-11.43)
[2022-11-17 20:04] LABS: Specific Gravity, Urine 1.005 (1.005-1.030); Urine Appearance Clear (CLEAR); Urine Color Yellow (Yellow); pH Urine 7 (5-7)
[2022-11-17 20:05] LABS: Add Urine Microscopic? YES; Bilirubin Urine Neg (Negative); Blood Urine Trace (Negative); Glucose Urine UA Norm (Normal); Ketones Urine Negative (Negative); Leukocyte Esterase Urine Trace (Negative); Nitrate Urine Negative (Negative); Protein Urine 1+ (Negative); Urobilinogen Urine Neg (Negative)
[2022-11-17 20:11] LABS: Ketone (Acetest) Serum Negative (Negative)
[2022-11-17 20:11] LABS: Add Urine Culture? No; Bacteria Urine TRACE /hpf; Mucus Urine 3+ /hpf; RBC Urine RARE /hpf (0-2); WBC Urine 0-4 /hpf (0-5)
[2022-11-17 20:13] LABS: HCG, Serum Qual Negative (Negative)
[2022-11-17 20:17] VITALS: PULSE 81; RESP 18; O2SAT 96
--- NOTE | 2022-11-17 20:17 | PC.NURSE ---
PT DOES NOT WEAR O2 AT HOME. O2 TURNED OFF. PATIENT SATURATION AT 95% ON RA.
[2022-11-17 20:20] LABS: Lactic Sepsis W/Reflex 1.3 mmol/L (0.5-2.2)
[2022-11-17 20:24] LABS: Alanine Aminotransferase 40 U/L (0-33); Albumin Level 3.9 g/dL (3.5-5.2); Alkaline Phosphatase 151 U/L (35-105); Anion Gap 12.4 (5-19); Aspartate Amino Transferase 21 U/L (0-32); Blood Urea Nitrogen 9 mg/dL (6-20); C Reactive Protein 3.3 mg/L (0.0-4.9); Calcium 9.3 mg/dL (8.5-10.5); Carbon Dioxide 28 mmol/L (22-29); Chloride 101 mmol/L (98-107); Creatinine Clr Calc Pharmacy 151.4211; Glomerular Filtration Rate 105.8 mL/min (90-130); Glucose 177 mg/dL (65-115); Lipase 19 U/L (13-60); Magnesium 2.1 mg/dL (1.7-2.3); NT Pro B Type Natriuretic Pept 69 pg/mL (0-125); Osmolality Calculated 287 mOsm/kg (285-295); Potassium 4.4 mmol/L (3.5-5.1); Sodium 137 mmol/L (136-145); Total Bilirubin 0.6 mg/dL (0.15-1.2); Total Protein 6.9 g/dL (6.6-8.7)
[2022-11-17] MEDS: sodium chloride 0.9% 500 ML 999 ML IV (20:52)
== END 2022-11-17 22:11 | disposition home or self-care (01) ==
PROVIDERS: Emergency Provider Emergency Medicine; PCP Physician Assistant
DX: K52.9 Noninfective gastroenteritis and colitis, unspecified (principal); Z79.4 Long term (current) use of insulin; Z79.84 Long term (current) use of oral hypoglycemic drugs; Z20.822 Contact with and (suspected) exposure to COVID-19; K44.9 Diaphragmatic hernia without obstruction or gangrene; K57.90 Diverticulosis of intestine, part unspecified, without perforation or abscess without bleeding; F17.210 Nicotine dependence, cigarettes, uncomplicated; I25.10 Atherosclerotic heart disease of native coronary artery without angina pectoris; E11.9 Type 2 diabetes mellitus without complications; I11.0 Hypertensive heart disease with heart failure; I50.30 Unspecified diastolic (congestive) heart failure
CPT/HCPCS: 36415; 70450; 71045; 74177; 80053; 81001; 82009; 83605; 83690; 83735; 83880; 84703; 85025; 85610; 86140; 87426; 93005; 96374; 96375; 99285; J2060; J2405; J7040; Q9967

== ENCOUNTER 2023-03-06 11:27 | Outpatient (CLI) | payer BC, SELFPAY ==
[2023-03-06 12:35] LABS: Alanine Aminotransferase 48 U/L (0-33); Albumin Level 3.9 g/dL (3.5-5.2); Alkaline Phosphatase 155 U/L (35-105); Aspartate Amino Transferase 23 U/L (0-32); Blood Urea Nitrogen 12 mg/dL (6-20); Calcium 9.1 mg/dL (8.5-10.5); Carbon Dioxide 23 mmol/L (22-29); Chloride 99 mmol/L (98-107); Cholesterol 270 mg/dL (0-200); Globulin 3.5 g/dL (1.3-4.6); Glomerular Filtration Rate 105.8 mL/min (90-130); Glucose 261 mg/dL (65-115); HDL Cholesterol 36 mg/dL (60-100); LDL Cholesterol Calculated 191 mg/dL (50-129); LDL HDL Ratio 5.31 RATIO (0.00-3.22); Osmolality Calculated 289 mOsm/kg (285-295); Sodium 135 mmol/L (136-145); Total Bilirubin 0.8 mg/dL (0.15-1.2); Total Protein 7.4 g/dL (6.6-8.7); Triglycerides 217 mg/dL (0-150)
[2023-03-06 12:57] LABS: Creatinine Urine, Random 204 mg/dL (28-217); Microalbum Creatinine Ratio Ur 5 mg/dL (0-20); Microalbumin Random Urine 1 ug/dL (0-20)
[2023-03-06 13:54] LABS: Estmated Average Glucose 180; Hemoglobin A1C 7.9 % (4.0-6.0)
== END 2023-03-06 11:28 | disposition home or self-care (01) ==
LOC: LAB 11:28
PROVIDERS: PCP Physician Assistant; Visit Provider Internal Medicine
DX: E11.9 Type 2 diabetes mellitus without complications (principal); E78.2 Mixed hyperlipidemia
CPT/HCPCS: 80053; 80061; 82044; 83036

== ENCOUNTER 2023-04-21 18:08 | Emergency (ER) | payer BC, SELFPAY ==
[2023-04-21 18:11] VITALS: BP 159/68; PULSE 102; RESP 16; TEMP 36.6; O2SAT 95; BMI 53.1
--- NOTE | 2023-04-21 18:17 | XRR_ITS ---
PROCEDURE INFORMATION: Exam: XR Chest Exam date and time: 04/21/2023 6:26 PM Age: 52 years old Clinical indication: Shortness of breath; Additional info: SOB TECHNIQUE: Imaging protocol: Radiologic exam of the chest. Views: 1 view. COMPARISON: CR XR chest 1V portable [id number] 11/17/2022 6:55 PM FINDINGS: Lungs: Hazy increased density over the lung bases is likely artifactual. There is some obscuration of the left lateral hemidiaphragm which is likely artifactual though consolidation could have this appearance. No definitive consolidation is identified. Pleural spaces: Unremarkable. No pleural effusion. No pneumothorax. Heart/Mediastinum: Unremarkable. No cardiomegaly. Bones/joints: Unremarkable. XR/XR chest 1V portable [id number] IMPRESSION: 1. Obscuration of the left lateral hemidiaphragm is likely artifactual though could represent consolidation. Follow-up as indicated. 2. No definitive evidence of acute cardiopulmonary disease.
--- NOTE | 2023-04-21 18:17 | ECG_ITS ---
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 Measurements Intervals [place] Rate: 99 P: 61 TN: 175 QRS: 28 QRSD: 87 T: 52 QT: 344 QTc: 443 Interpretive Statements SINUS RHYTHM LOW QRS VOLTAGE IN PRECORDIAL LEADS [QRS DEFLECTION < 1.0 mV IN CHEST LEADS] Compared to ECG 11/17/2022 18:52:52 First degree AV block no longer present Electronically Signed On 04-22-2023 9:46:49 SHRIMP CLEANER by Chidi Coburn M.D. [id number]
[2023-04-21 18:29] LABS: Basophils # 0.1 10^3/uL (0.0-0.1); Basophils % 0.6 %; Eosinophils # 0.3 10^3/uL (0.0-0.8); Eosinophils % 2.8 %; Hematocrit 46.4 % (36-47); Lymphocytes # 2.9 10^3/uL (0.8-4.8); Lymphocytes % 27.8 %; Mean Corpuscular HGB Conc 33.4 g/dL (30-55); Mean Corpuscular Hemoglobin 29.3 pg (27-33); Mean Corpuscular Volume 87.7 fl (85-98); Monocytes # 0.5 10^3/uL (0.2-0.9); Monocytes % 4.4 %; Neutrophils # 6.76 10^3/uL (1.8-7.7); Nucleated Red Blood Cells % 0 %; Platelet Count 254 10^3/cmm (157-399); Red Blood Count 5.29 10^6/uL (3.85-5.65); Red Cell Distribution Width 13.2 % (12.1-15.1); White Blood Count 10.54 10^3/uL (3.29-11.43)
[2023-04-21 18:59] LABS: Alanine Aminotransferase 55 U/L (0-33); Alkaline Phosphatase 161 U/L (35-105); Anion Gap 16.1 (5-19); Aspartate Amino Transferase 27 U/L (0-32); Blood Urea Nitrogen 7 mg/dL (6-20); Calcium 9.1 mg/dL (8.5-10.5); Carbon Dioxide 24 mmol/L (22-29); Chloride 95 mmol/L (98-107); Creatinine Clr Calc Pharmacy 152.0636; Globulin 3.3 g/dL (1.3-4.6); Glomerular Filtration Rate 105.8 mL/min (90-130); Glucose 391 mg/dL (65-115); NT Pro B Type Natriuretic Pept < 36 pg/mL (0-125); Osmolality Calculated 286 mOsm/kg (285-295); Potassium 4.1 mmol/L (3.5-5.1); Sodium 131 mmol/L (136-145); Total Bilirubin 0.5 mg/dL (0.15-1.2); Total Protein 7.3 g/dL (6.6-8.7)
[2023-04-21 19:15] VITALS: BP 129/61; PULSE 94; RESP 21; O2SAT 93
--- NOTE | 2023-04-21 19:29 | W.ED.SOB ---
HPI - SOB/Dyspnea General: Chief Complaint: Shortness of Breath/Dyspnea Stated Complaint: SOB Time Seen by Provider: 04/21/23 18:38 History of Present Illness: HPI Narrative: 52-year-old female presents to the emergency department with complaints of feeling like she has had intermittent shortness of breath over the previous 1 week. She states she utilized a pulse oximetry at her home and found that her oxygen level was 90% and she states she felt it when she attempted to stand up and walk that her oxygen saturation dropped to 83%. She states that she has a history of congestive heart failure she also states that her legs have been intermittently cramping and that she has had a greater than 5 pound weight gain in a week. She feels like she is overloaded with fluid and feels like she has increased weakness and abdominal distention. She states she also feels like she has had constipation that has been couple days since she had a bowel movement and states that she has been taking a stool softener to help her have a bowel movement. Review of Systems General: Reports: 10 or more systems reviewed and unremarkable except in HPI and below Const: Reports: fatigue Resp: Reports: dyspnea GI: Reports: constipation PFSH ED PFSH: Medical History (HFpEF) heart failure with preserved ejection fraction Chest pain Asthma Diastolic heart failure Coronary artery disease Obesity Hypertension Diabetes Surgical History History of umbilical hernia repair Family History Other Hypertension Social History Smoking and tobacco/nicotine status: current every day tobacco/nicotine user Alcohol intake: current Alcohol intake frequency: holidays/special occasions only Physical Exam Narrative: EXAM NARRATIVE: Constitutional: the patient appears well nourished and of normal development. Vital signs as documented. No acute distress at present. Alert and oriented-to person, place, time and situation. Her oxygen saturation on room air has been 95%. Head, eyes, ears, nose, mouth, throat: Normocephalic, atraumatic. Pupils-equal, round, reactive to light. No scleral icterus. Normal-appearing external ears. Normal appearing nasal turbinates, no drainage. No obvious oral lesions, posterior oropharynx without erythema or exudates. Neck: Supple, trachea is midline, no lymphadenopathy, no jugular venous distension, thyromegaly, or carotid bruits. Carotid upstrokes are brisk bilaterally. Lungs: clear to auscultation to all lung moreno. Symmetrical rise and fall of chest, no obvious signs of increased work of breathing at present. Cardiac: Regular rate and rhythm, positive S1, S2. No murmurs, rubs or gallops that I can appreciate Abdomen: Soft, non-tender to palpation, normal active bowel sounds to all quadrants. No palpable masses, no organomegaly and abdominal bruits. Extremities: 2+ pulses in the upper extremities that are equal bilaterally, 2+ pulses in the lower extremities that are equal bilaterally. Non-edematous. Moves all extremities well, sensation to all extremities are noted. Skin: Warm, dry, intact. Course Vital Signs: Vital signs: Vital Signs Temperature 97.8 F 04/21/23 18:11 Pulse Rate 102 H 04/21/23 18:11 Respiratory Rate 16 04/21/23 18:11 Blood Pressure 159/68 04/21/23 18:11 Pulse Oximetry 95 04/21/23 18:11 Oxygen Delivery Me thod Room Air 04/21/23 18:11 MDM - SOB/Dyspnea Medical Decision Making Physical exam completed and documented I will obtain a chest x-ray as well as a CBC and CMP to evaluate for electrolyte abnormality. Will obtain twelve-lead EKG and a B-type natriuretic peptide Medical Records I reviewed the patient's medical records. Lab Data I reviewed the patient's lab results. 04/21/23 18:25 04/21/23 18:25 Labs/Radiology: Radiology Impressions Chest X-Ray 04/21/23 18:17 IMPRESSION: 1. Obscuration of the left lateral hemidiaphragm is likely artifactual though could represent consolidation. Follow-up as indicated. 2. No definitive evidence of acute cardiopulmonary disease. Laboratory Results WBC 10.54 10^3/uL (3.29-11.43) 04/21/23 18:25 RBC 5.29 10^6/uL (3.85-5.65) 04/21/23 18:25 Hgb 15.50 g/dL (11.27-16.99) 04/21/23 18:25 Hct 46.4 % (36-47) 04/21/23 18: MCV 87.7 fl (85-98) 04/21/23 18: MCH 29.3 pg (27-33) 04/21/23 18: MCHC 33.4 g/dL (30-55) 04/21/23 18: RDW 13.2 % (12.1-15.1) 04/21/23 18: Plt Count 254 10^3/cmm (157-399) 04/21/23 18: MPV 11.0 fL (7.4-10.4) H 04/21/23 18: Neut % (Auto) 64.0 % 04/21/23 18: Lymph % (Auto) 27.8 % 04/21/23 18: [place] % (Auto) 4.4 % 04/21/23 18: Eos % (Auto) 2.8 % 04/21/23 18: Baso % (Auto) 0.6 % 04/21/23 18: Neut # (Auto) 6.76 10^3/uL (1.8-7.7) 04/21/23 18: Lymph # (Auto) 2.9 10^3/uL (0.8-4.8) 04/21/23 18: [place] # (Auto) 0.5 10^3/uL (0.2-0.9) 04/21/23 18: Eos # (Auto) 0.3 10^3/uL (0.0-0.8) 04/21/23 18: Baso # (Auto) 0.1 10^3/uL (0.0-0.1) 04/21/23 18: Nucleated RBC % (auto) 0 % 04/21/23 18: Nucleated RBCs # 0.0 /100WBC 04/21/23 18:25 Sodium 131 mmol/L (136-145) L 04/21/23 18:25 Potassium 4.1 mmol/L (3.5-5.1) 04/21/23 18:25 Chloride 95 mmol/L (98-107) L 04/21/23 18: Carbon Dioxide 24 mmol/L (22-29) 04/21/23 18:25 Anion Gap 16.1 (5-19) 04/21/23 18:25 BUN 7 mg/dL (6-20) 04/21/23 18:25 Creatinine 0.6 mg/dL (0.5-0.9) 04/21/23 18:25 GFR Calculation 105.8 mL/min (90-130) 04/21/23 18:25 Glucose 391 mg/dL (65-115) H 04/21/23 18:25 Calculated Osmolality 286 mOsm/kg (285-295) 04/21/23 18:25 Calcium 9.1 mg/dL (8.5-10.5) 04/21/23 18:25 Total Bilirubin 0.5 mg/dL (0.15-1.2) 04/21/23 18:25 AST 27 U/L (0-32) 04/21/23 18:25 ALT 55 U/L (0-33) H 04/21/23 18:25 Alkaline Phosphatase 161 U/L (35-105) H 04/21/23 18:25 NT-Pro-B Natriuret Pep < 36 pg/mL (0-125) 04/21/23 18:25 Total Protein 7.3 g/dL (6.6-8.7) 04/21/23 18:25 Albumin 4.0 g/dL (3.5-5.2) 04/21/23 18:25 Globulin 3.3 g/dL (1.3-4.6) 04/21/23 18:25 All radiology interpretation(s) finalized by discharge EKG Data EKG 1: Interpretation: Twelve-lead EKG obtained at 1857 reviewed at 1859 demonstrates sinus rhythm with a ventricular rate of 99 bpm, MT interval 175, QRS duration 87, QT 344, QTc 401, there is no ST elevation or depression to demonstrate acute ischemia or infarction at present. Discharge Plan Discharge Patient Disposition: Home Clinical Impression: Muscle cramps, Constipation Condition: Stable Prescriptions: New magnesium 200 mg tablet 200 mg PO DAILY Qty: 30 0RF sennosides-docusate sodium [Senna-S] 8.6-50 mg tablet 2 tab-cap PO BID Qty: 60 0RF No Action fluoxetine 40 mg capsule 40 mg PO DAILY@15 alprazolam 0.25 mg tablet 0.5 mg PO BID PRN (Reason: anxiety) lisinopril 10 mg tablet 10 mg PO DAILY@15 nitroglycerin [Nitrostat] 0.4 mg tablet, sublingual 0.4 mg sublingual Q5M PRN (Reason: chest pain) Qty: 25 3RF Rx Instructions: do not exceed 3 doses per episode potassium chloride 20 mEq tablet extended release 20 meq PO DAILY PRN (Reason: edema) Qty: 30 3RF Rx Instructions: when taking Lasix Ozempic 1 mg/dose (4 mg/3 mL) pen injector 1 mg SUBCUT Q7D 30 Days Qty: 3.75 0RF Rx Instructions: 0.50mg weekly for 1 month then 1mg weekly for 1month then 2mg weekly Ozempic 2 mg/dose (8 mg/3 mL) pen injector 2 mg SUBCUT Q7D 30 Days Qty: 3.75 0RF Rx Instructions: 0.50mg weekly for 1 month then 1mg weekly for 1month then 2mg weekly Ozempic 0.25 mg or 0.5 mg (2 mg/3 mL) pen injector 0.5 mg SUBCUT Q7D 30 Days Qty: 4 0RF Rx Instructions: 0.50mg weekly for 1month, then 1mg weekly for 1 month then 2mg weekly fluconazole 150 mg tablet 150 mg PO ONCE Qty: 1 0RF furosemide 40 mg tablet 40 mg PO DAILY PRN (Reason: edema) Qty: 30 6RF Rx Instructions: for 3 days daily then prn metoprolol succinate 25 mg tablet extended release 24 hr 25 mg PO DAILY@15 Qty: 30 0RF Rx Instructions: MUST have follow-up for further refills pantoprazole 40 mg tablet,delayed release (DR/EC) 40 mg PO DAILY@15 Qty: 30 0RF Rx Instructions: MUST have follow-up for further refills metformin 1,000 mg tablet 1,000 mg PO DAILY 60 Days Qty: 60 0RF Januvia 100 mg tablet 100 mg PO DAILY Qty: 90 0RF insulin degludec [Tresiba FlexTouch U-100] 100 unit/mL (3 mL) insulin pen See Rx Instructions .ROUTE .COMPLEX Qty: 60 0RF Dose Instruction: INJECT 60 UNITS SUBCUTANEOUSLY AT BEDTIME Rx Instructions: INJECT 60 UNITS SUBCUTANEOUSLY AT BEDTIME budesonide-formoterol 160-4.5 mcg/actuation HFA aerosol inhaler 1 puff INHALATION BID@15,22 atorvastatin 80 mg tablet 80 mg PO DAILY Brilinta 90 mg tablet 90 mg PO BID isosorbide mononitrate 30 mg tablet extended release 24 hr 15 mg PO BID 30 Days Qty: 60 2RF ondansetron 4 mg film 4 mg PO DAILY PRN (Reason: nausea and vomiting) Qty: 10 0RF Discharge Orders: Discharge ED (Routine); Ordered 04/21/23 Ordered By: Tin Steele Referrals: Christa Arana PA [Primary Care Provider] - Discharge Diet: Usual diet Discharge Activity: Resume usual activity Patient Instructions: Opioid Safety, Pain Management Activity Restrictions/Additional Instructions: Activity Restrictions/Additional Instructions: Thank you for choosing [facility] for your healthcare needs today. Please realize that you were seen in the Emergency Department and that we are providing you with an emergency medical screening exam and this may not be a complete and all inclusive of all the testing and or medical work-up that you may need to determine your ailment or severity of your illness. It is very important that you follow-up as instructed with your Primary care provider or Specialist for additional evaluation and to discuss your medical treatment plan. Coding Level of Care Code ED Residence Leasing Agent for Meli Sawant
[2023-04-21 19:48] VITALS: BP 129/61; RESP 18; O2SAT 96
== END 2023-04-21 19:53 | disposition home or self-care (01) ==
PROVIDERS: Emergency Medicine; Emergency Provider Internal Medicine; PCP Physician Assistant
DX: R25.2 Cramp and spasm (principal); K59.00 Constipation, unspecified; Z79.84 Long term (current) use of oral hypoglycemic drugs; Z79.4 Long term (current) use of insulin; Z72.0 Tobacco use; I11.0 Hypertensive heart disease with heart failure; I50.30 Unspecified diastolic (congestive) heart failure; I25.10 Atherosclerotic heart disease of native coronary artery without angina pectoris; E11.9 Type 2 diabetes mellitus without complications
CPT/HCPCS: 36415; 71045; 80053; 83880; 85025; 93005; 99285

== ENCOUNTER 2023-08-31 10:34 | Emergency (ER) | payer BC, SELFPAY ==
[2023-08-31 10:52] VITALS: BP 176/92; PULSE 95; RESP 18; TEMP 36.6; O2SAT 93; BMI 54.8
--- NOTE | 2023-08-31 11:09 | ED_ITS ---
HPI - Headache 2 General: Chief Complaint: Headache Stated Complaint: recurring headache Time Seen by Provider: 08/31/23 11:09 Source: patient Mode of arrival: ambulatory History of Present Illness: 53-year-old female presents emergency ro om with complaint of recurring headache this been going on for a couple of months now she was seen by her primary care doctor evaluated for temporal arteritis she is also been seen by ophthalmology. She states she had a CRP that was normal describes the pain as being in the left mandaeism and shooting across her head she also states she gets some shortness of breath and chest discomfort from time to time with it. She states it seems to be the chest pain starts after the headache. Additionally she has noticed she is getting a rash between her fingers and on the soles of her feet it comes and goes she describes it as hive-like. Patient does have a history of diabetes mellitus and hypertension as well as heart disease. She has some mild chest discomfort this morning. She will get some visual disturbance with that slight blurry vision. She denies any abnormal taste or smells. MD elicited complaint: headache Onset (ago): month(s) Onset description: gradually Quality & Timing: sharp Exacerbating factors: none Relieving factors: nothing Associated symptoms: Reports chest pain; Deny confusion, cough, diaphoresis, eye pain, eye redness, fever(s), lightheadedness, loss of vision, malaise, nausea, neck stiffness, numbness, paresthesias, photophobia, pre-syncope, rash, seizures, short of breath, sound sensitivity, syncope, vomiting or weakness Treatments prior to arrival: none Review of Systems 2 Const: Denies: fever(s), chills, malaise or diaphoresis Card: Reports: chest pain; Denies: lightheadedness, syncope or pre-syncope Resp: Reports: dyspnea GI: Denies: abdominal pain, nausea or vomiting : Denies: dysuria, urinary frequency or urinary urgency Musc: Reports: neck pain; Denies: back pain Skin/Breast: Denies: rash Neuro: Reports: headache(s); Denies: confusion PFSH ED 2 PFSH: Medical History (HFpEF) heart failure with preserved eje ction fraction Chest pain Asthma Diastolic heart failure Coronary artery disease Obesity Hypertension Diabetes Surgical History History of umbilical hernia repair Family History Other Hypertension Social History Smoking and tobacco/nicotine status: current every day tobacco/nicotine user Alcohol intake: current Alcohol intake frequency: holidays/special occasions only Physical Exam 2 Const: COMMON NORMALS: no acute distress GENERAL APPEARANCE: cooperative and comfortable ORIENTATION/CONSCIOUSNESS: Yes awake, Yes oriented to person, Yes oriented to place and Yes oriented to time HENMT: COMMON NORMALS: normocephalic, atraumatic and hearing grossly normal bilaterally HEAD & SCALP: normocephalic and atraumatic Eye: DIRECT OPHTHALMOSCOPY: No photophobia Resp: COMMON NORMALS: normal respiratory effort, No retractions, No use of accessory muscles and clear to auscultation bilaterally AUSCULTATION: clear to auscultation bilaterally Cardio: COMMON NORMALS: regular rate, regular rhythm and No murmurs present (Cardio) RATE: regular rate RHYTHM: regular rhythm GI: COMMON NORMALS: Soft to palpation and No hepatosplenomegaly present A USCULTATION: Yes normoactive bowel sounds PALPATION: Yes Soft to palpation, No Tenderness to palpation present (GI), No Guarding due to palpation present (GI) and Yes No hepatosplenomegaly present Extremity: COMMON NORMALS: normal to inspection, capillary refill normal, no clubbing, cyanosis or edema, no calf tenderness and no pedal edema Neuro: SENSORIUM/ORIENTATION: Yes oriented to person, Yes oriented to place and Yes oriented to time Skin: COMMON NORMALS: no rashes or lesions noted GENERAL SKIN EXAM: no rashes or lesions noted Course 2 Vital Signs: Vital signs: Vital Signs Temperature 97.9 F 08/31/23 10:52 Pulse Rate 89 08/31/23 15:06 Respiratory Rate 16 08/31/23 15:06 Blood Pressure 129/65 08/31/23 15:06 Pulse Oximetry 93 08/31/23 15:06 Oxygen Delivery Me thod Room Air 08/31/23 13:46 MDM - Headache Medical Decision Making Sed rate and CRP are normal CT of the head did not show any significant abnormality. She has no meningeal signs her white count is normal. Her blood sugar was elevated but that improved with insulin. At this point I think she does need to follow through with her MRI we will discharge her home have her follow-up with her primary care doctor return if she has further problems. Differential Diagnosis Likely migraine Medical Records I reviewed the patient's medical records. Lab Data I reviewed the patient's lab results. 08/31/23 11:27 08/31/23 11:[address] 08/31/23 11:23 IMPRESSION: No acute intracranial abnormality. Laboratory Results WBC 9.30 10^3/uL (3.29-11.43) 08/31/23 11:27 RBC 4.99 10^6/uL (3.85-5.65) 08/31/23 11:27 Hgb 14.70 g/dL (11.27-16.99) 08/31/23 11:27 Hct 44.2 % (36-47) 08/31/23 11:27 MCV 88.6 fl (85-98) 08/31/23 11:27 MCH 29.5 pg (27-33) 08/31/23 11:27 MCHC 33.3 g/dL (30-55) 08/31/23 11:27 RDW 13.5 % (12.1-15.1) 08/31/23 11:27 Plt Count 219 10^3/cmm (157-399) 08/31/23 11:27 MPV 11.0 fL (7.4-10.4) H 08/31/23 11:27 Neut % (Auto) 66.3 % 08/31/23 11:27 Lymph % (Auto) 25.8 % 08/31/23 11:27 [place] % (Auto) 4.5 % 08/31/23 11:27 Eos % (Auto) 2.7 % 08/31/23 11:27 Baso % (Auto) 0.3 % 08/31/23 11:27 Neut # (Auto) 6.16 10^3/uL (1.8-7.7) 08/31/23 11:27 Lymph # (Auto) 2.4 10^3/uL (0.8-4.8) 08/31/23 11:27 [place] # (Auto) 0.4 10^3/uL (0.2-0.9) 08/31/23 11:27 Eos # (Auto) 0.3 10^3/uL (0.0-0.8) 08/31/23 11:27 Baso # (Auto) 0.0 10^3/uL (0.0-0.1) 08/31/23 11:27 Nucleated RBC % (auto) 0 % 08/31/23 11:27 Nucleated RBCs # 0.0 /100WBC 08/31/23 11:27 ESR 26 mm/hr (0-15) H 08/31/23 11:27 Sodium 133 mmol/L (136-145) L 08/31/23 11:27 Potassium 4.3 mmol/L (3.5-5.1) 08/31/23 11:27 Chloride 97 mmol/L (98-107) L 08/31/23 11:27 Carbon Dioxide 24 mmol/L (22-29) 08/31/23 11:27 Anion Gap 16.3 (5-19) 08/31/23 11:27 BUN 9 mg/dL (6-20) 08/31/23 11:27 Creatinine 0.6 mg/dL (0.5-0.9) 08/31/23 11:27 GFR Calculation 105.4 mL/min (90-130) 08/31/23 11:27 Glucose 330 mg/dL (65-115) H 08/31/23 11:27 POC Glucose 128 mg/dL (70-110) H 08/31/23 14:35 Calculated Osmolality 288 mOsm/kg (285-295) 08/31/23 11:27 Calcium 9.0 mg/dL (8.5-10.5) 08/31/23 11:27 Total Bilirubin 0.9 mg/dL (0.15-1.2) 08/31/23 11:27 AST 21 U/L (0-32) 08/31/23 11:27 ALT 32 U/L (0-33) 08/31/23 11:27 Alkaline Phosphatase 148 U/L (35-105) H 08/31/23 11:27 Troponin T Baseline 7 ng/L (0-10) 08/31/23 11:27 Troponin T 120 Minute 6.74 ng/L (0-10) 08/31/23 13:37 Delta Troponin T -0.26 ABS# (0-10) L 08/31/23 13:37 C-Reactive Protein 7.6 mg/L (0.0-4.9) H 08/31/23 11:27 Total Protein 6.4 g/dL (6.6-8.7) L 08/31/23 11:27 Albumin 4.1 g/dL (3.5-5.2) 08/31/23 11:27 Globulin 2.3 g/dL (1.3-4.6) 08/31/23 11:27 Urine Color Yellow (Yellow) 08/31/23 12:11 Urine Appearance Clear (CLEAR) 08/31/23 12:11 Urine pH 5 (5-7) 08/31/23 12:11 Ur Specific [place] 1.020 (1.005-1.030) 08/31/23 12:11 Urine Protein Neg (Negative) 08/31/23 12:11 Urine Glucose (UA) 4+ (Normal) H 08/31/23 12:11 Urine Ketones Negative (Negative) 08/31/23 12:11 Urine Blood Neg (Negative) 08/31/23 12:11 Urine Nitrate Negative (Negative) 08/31/23 12:11 Urine Bilirubin Neg (Negative) 08/31/23 12:11 Urine Urobilinogen 1 mg/dL (Negative) H 08/31/23 12:11 Ur Leukocyte Esterase Trace (Negative) H 08/31/23 12:11 Urine RBC None /hpf (0-2) 08/31/23 12:11 Urine WBC Rare /hpf (0-5) 08/31/23 12:11 Ur Squamous Epith Cells 0-4 /hpf (0-5) H 08/31/23 12:11 Amorphous Sediment Not Reportable 08/31/23 12:11 Urine Bacteria 1+ /hpf (NONE) H 08/31/23 12:11 All radiology interpretation(s) finalized by discharge Discharge Plan Discharge Patient Disposition: Home Clinical Impression: Headache Condition: Stable Prescriptions: No Action fluoxetine 40 mg capsule 40 mg PO DAILY@15 alprazolam 0.25 mg tablet 0.5 mg PO BID PRN (Reason: anxiety) lisinopril 10 mg tablet 10 mg PO DAILY@15 nitroglycerin [Nitrostat] 0.4 mg tablet, sublingual 0.4 mg sublingual Q5M PRN (Reason: chest pain) Qty: 25 3RF Rx Instructions: do not exceed 3 doses per episode potassium chloride 20 mEq tablet extended release 20 meq PO DAILY PRN (Reason: edema) Qty: 30 3RF Rx Instructions: when taking Lasix fluconazole 150 mg tablet 150 mg PO ONCE Qty: 1 0RF furosemide 40 mg tablet 40 mg PO DAILY PRN (Reason: edema) Qty: 30 6RF Rx Instructions: for 3 days daily then prn metoprolol succinate 25 mg tablet extended release 24 hr 25 mg PO DAILY@15 Qty: 30 0RF Rx Instructions: MUST have follow-up for further refills pantoprazole 40 mg tablet,delayed release (DR/EC) 40 mg PO DAILY@15 Qty: 30 0RF Rx Instructions: MUST have follow-up for further refills Januvia 100 mg tablet 100 mg PO DAILY Qty: 90 0RF insulin degludec [Tresiba FlexTouch U-100] 100 unit/mL (3 mL) insulin pen 65 unit SUBCUT DAILY Qty: 15 1RF metformin 1,000 mg tablet See Rx Instructions .ROUTE .COMPLEX Qty: 60 0RF Dose Instruction: Take 1 tablet by mouth once daily Rx Instructions: Take 1 tablet by mouth once daily budesonide-formoterol 160-4.5 mcg/actuation HFA aerosol inhaler 1 puff INHALATION BID@15,22 atorvastatin 80 mg tablet 80 mg PO DAILY Brilinta 90 mg tablet 90 mg PO BID isosorbide mononitrate 30 mg tablet extended release 24 hr 15 mg PO BID 30 Days Qty: 60 2RF Senna-S 8.6-50 mg tablet 2 tab-cap PO BID Qty: 60 0RF magnesium 200 mg tablet 200 mg PO DAILY Qty: 30 0RF ondansetron 4 mg film 4 mg PO DAILY PRN (Reason: nausea and vomiting) Qty: 10 0RF Discharge Orders: Discharge ED (Routine); Ordered 08/31/23 Ordered By: Juarez Triana Referrals: Christa Arana PA [Primary Care Provider] - Discharge Diet: Usual diet Discharge Activity: Increase activity as tolerated Patient Instructions: Opioid Safety, Pain Management Activity Restrictions/Additional Instructions: Thank you for choosing [facility] for your healthcare needs today. It is very important that you follow up as instructed or that you return to the Emergency Department should you have concerns or if your condition changes or worsens in any way. You were seen today with complaint of intermittent headaches. CT of your head did not show any acute issues your cardiac enzymes and EKGs were also normal. No sign of acute coronary syndrome. Will recommend you continue your current medications and follow-up with your doctor follow through on the MRI that has been scheduled. We did note your blood sugar was markedly elevated while you were here you were given insulin is improved to the low 100s continue to monitor your blood sugar closely and review with your primary care doctor Coding Level of Care Code ED Jacket Preparer for Meli Sawant
[2023-08-31 11:11] VITALS: BP 120/89; PULSE 96; RESP 18; O2SAT 92
--- NOTE | 2023-08-31 11:23 | CTR_ITS ---
PROCEDURE INFORMATION: Exam: CT Head Without Contrast Exam date and time: 08/31/2023 11:46 AM Age: 53 years old Clinical indication: Pain; Headache; Additional info: Persistent headache TECHNIQUE: Imaging protocol: Computed tomography of the head without contrast. Radiation optimization: All CT scans at this facility use at least one of these dose optimization techniques: automated exposure control; mA and/or kV adjustment per patient size (includes targeted exams where dose is matched to clinical indication); or iterative reconstruction. COMPARISON: CT head wo con* [id number] 11/17/2022 7:01 PM RADIATION DOSE METRICS: Total DLP (mGy-cm): 1171.5 FINDINGS: Brain: No midline shift. Ventricles, cisterns, and sulci are normal. No mass, acute infarct, hemorrhage, or extraaxial fluid collection. Cerebral ventricles: No ventriculomegaly. Paranasal sinuses: Visualized sinuses are unremarkable. No fluid levels. Mastoid air cells: Visualized mastoid air cells are well aerated. Bones: Unremarkable. No acute fracture. Soft tissues: Unremarkable. CT/CT head wo con* [id number] IMPRESSION: No acute intracranial abnormality.
[2023-08-31 11:34] LABS: Basophils % 0.3 %; Eosinophils # 0.3 10^3/uL (0.0-0.8); Eosinophils % 2.7 %; Hematocrit 44.2 % (36-47); Lymphocytes # 2.4 10^3/uL (0.8-4.8); Lymphocytes % 25.8 %; Mean Corpuscular HGB Conc 33.3 g/dL (30-55); Mean Corpuscular Hemoglobin 29.5 pg (27-33); Mean Corpuscular Volume 88.6 fl (85-98); Monocytes # 0.4 10^3/uL (0.2-0.9); Monocytes % 4.5 %; Neutrophils # 6.16 10^3/uL (1.8-7.7); Neutrophils % 66.3 %; Nucleated Red Blood Cells % 0 %; Platelet Count 219 10^3/cmm (157-399); Red Blood Count 4.99 10^6/uL (3.85-5.65); Red Cell Distribution Width 13.5 % (12.1-15.1)
[2023-08-31 11:39] LABS: Erythrocyte Sedimentation Rate 26 mm/hr (0-15)
[2023-08-31 11:55] LABS: Alanine Aminotransferase 32 U/L (0-33); Albumin Level 4.1 g/dL (3.5-5.2); Alkaline Phosphatase 148 U/L (35-105); Anion Gap 16.3 (5-19); Aspartate Amino Transferase 21 U/L (0-32); Blood Urea Nitrogen 9 mg/dL (6-20); C Reactive Protein 7.6 mg/L (0.0-4.9); Carbon Dioxide 24 mmol/L (22-29); Chloride 97 mmol/L (98-107); Creatinine Clr Calc Pharmacy 147.9574; Globulin 2.3 g/dL (1.3-4.6); Glomerular Filtration Rate 105.4 mL/min (90-130); Glucose 330 mg/dL (65-115); Osmolality Calculated 288 mOsm/kg (285-295); Potassium 4.3 mmol/L (3.5-5.1); Sodium 133 mmol/L (136-145); Total Bilirubin 0.9 mg/dL (0.15-1.2); Total Protein 6.4 g/dL (6.6-8.7)
[2023-08-31 11:56] LABS: Troponin(5th) Baseline 7 ng/L (0-10)
--- NOTE | 2023-08-31 12:00 | ECG_ITS ---
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 Measurements Intervals [place] Rate: 88 P: 69 SD: 188 QRS: 41 QRSD: 90 T: 59 QT: 365 QTc: 444 Interpretive Statements SINUS RHYTHM LOW QRS VOLTAGE IN PRECORDIAL LEADS [QRS DEFLECTION < 1.0 mV IN CHEST LEADS] Compared to ECG 04/21/2023 18:57:41 No significant changes Electronically Signed On 08-31-2023 21:03:30 CDT by Ileana Espinal M.D. [id number]
[2023-08-31 12:19] LABS: Bilirubin Urine Neg (Negative); Blood Urine Neg (Negative); Glucose Urine UA 4+ (Normal); Ketones Urine Negative (Negative); Leukocyte Esterase Urine Trace (Negative); Nitrate Urine Negative (Negative); Protein Urine Neg (Negative); Urine Appearance Clear (CLEAR); Urine Color Yellow (Yellow); Urobilinogen Urine 1 mg/dL (Negative); pH Urine 5 (5-7)
[2023-08-31 12:20] LABS: Add Urine Microscopic? YES
[2023-08-31 12:22] LABS: Add Urine Culture? No; Bacteria Urine 1+ /hpf; Squamous Epithelial Cell Urine 0-4 /hpf (0-5); WBC Urine RARE /hpf (0-5)
[2023-08-31] MEDS: insulin regular-human 100 units/1 mL 10 UNIT IVP (12:32)
--- NOTE | 2023-08-31 13:45 | ECG_ITS ---
[facility] Test Date: 2023-08-31 Pat Name: Rimma White Department: Room: Gender: Female Lead Radiation Therapist: : 1970 Requested By: Juarez Mcclain Order Number: [id number] Lottie MD: Ileana Espinal M.D. Measurements Intervals [place] Rate: 94 P: 62 ND: 170 QRS: 27 QRSD: 93 T: 53 QT: 355 QTc: 444 Interpretive Statements SINUS RHYTHM LOW QRS VOLTAGE IN PRECORDIAL LEADS [QRS DEFLECTION < 1.0 mV IN CHEST LEADS] POSSIBLE ANTERIOR MYOCARDIAL INFARCTION , PROBABLY OLD [30 ms Q WAVE IN V3/V4, OR R < 0.2 mV IN V4] POSSIBLE INFERIOR MYOCARDIAL INFARCTION , PROBABLY OLD [30 ms Q WAVE IN II/aVF] Compared to ECG 08/31/2023 12:00:38 Myocardial infarct finding now present Electronically Signed On 08-31-2023 21:12:22 CDT by Ileana Espinal M.D. [id number]
[2023-08-31 13:46] VITALS: BP 143/75; PULSE 98; RESP 16; O2SAT 93
[2023-08-31 14:00] LABS: Troponin 5 2HR 6.74 ng/L (0-10)
[2023-08-31 14:01] LABS: Troponin 5 2HR Delta -0.26 ABS# (0-10)
[2023-08-31 14:38] LABS: Glucose Point of Care 128 mg/dL (70-110)
[2023-08-31 15:06] VITALS: BP 129/65; PULSE 89; RESP 16; O2SAT 93
== END 2023-08-31 15:07 | disposition home or self-care (01) ==
PROVIDERS: Emergency Provider Family Medicine; PCP Physician Assistant
DX: R51.9 Headache, unspecified (principal); Z79.84 Long term (current) use of oral hypoglycemic drugs; Z79.4 Long term (current) use of insulin; I11.0 Hypertensive heart disease with heart failure; I50.30 Unspecified diastolic (congestive) heart failure; I25.10 Atherosclerotic heart disease of native coronary artery without angina pectoris; E11.9 Type 2 diabetes mellitus without complications; Z72.0 Tobacco use
CPT/HCPCS: 36415; 36416; 70450; 80053; 81001; 82962; 84484; 85025; 85651; 86140; 93005; 96374; 99285; J1815

== ENCOUNTER 2023-09-23 07:57 | Outpatient (CLI) | payer BC, SELFPAY ==
--- NOTE | 2023-09-23 08:06 | MR_ITS ---
WS: [id number] MRI HEAD WITH CONTRAST TECHNIQUE: Sagittal T1, T2 axial, T2 axial FLAIR, axial susceptibility weighted imaging, axial diffus ion weighted images, and coronal T2 images were obtained. Pre and post-T1 axial and post T1 coronal i mages. ADC and FSPGR images. CLINICAL INFORMATION: HEADACHE COMPARISON: CT 08/31/2023 FINDINGS: No evidence of restricted diffusion to suggest acute ischemia. Ventricular system and basal cisterns are patent. Moderate patchy supratentorial T2 signal abnormality mainly in a periventricular and subc ortical distribution. This is nonspecific in a patient this age with differential considerations incl ude hypertension, and diabetes, collagen vascular disease, vasculitis, and demyelinating disease. Rec ommend correlation with clinical history. No significant parenchymal volume loss. No significant atro phy of the corpus callosum. Temporal lobes to be able formations are normal in appearance. Normal opt ic chiasm and pituitary infundibulum. Normal posterior fossa. Tiny chronic lacunar infarct in the RIG HT cerebellum. Patchy T2 signal normality in the shruthi. No hemosiderin on susceptibility-weighted images. No abnormal gadolinium enhancement. Normal dural ve nous sinuses. Incidental pineal cyst. MR/MR head wo/w con [id number] IMPRESSION: 1. Moderate patchy supratentorial T2 hyperintense lesions mainly in a perivent ricular and subcortical distribution. This is nonspecific in a patient this age but can be seen with hypertension, diabetes, collagen vascular disease, vascul itis, demyelinating disease, and migraine headaches. Recommend correlation with clinical symptoms. 2. Cervical and thoracic spine MRI can be obtained to assess for additional le sions if indicated 3. No significant parenchymal volume loss. 4. No abnormal gadolinium enhancement. 5. Tiny chronic lacunar infarct RIGHT cerebellum. 6. No other suspicious findings.
[2023-09-23] MEDS: gadobenate dimeglumine 20 mL vial IV (09:31)
== END 2023-09-23 07:58 | disposition home or self-care (01) ==
LOC: RAD 07:57
PROVIDERS: PCP Physician Assistant; Visit Provider Physician Assistant
DX: R51.9 Headache, unspecified (principal); G93.9 Disorder of brain, unspecified; R93.0 Abnormal findings on diagnostic imaging of skull and head, not elsewhere classified
CPT/HCPCS: 70553; A9577

== ENCOUNTER 2023-11-01 12:29 | Emergency (ER) | payer BC, SELFPAY ==
[2023-11-01] VITALS (8 sets, daily range): BP systolic 142–168; BP diastolic 79–102; PULSE 107–116; RESP 17–20; TEMP 37.2; O2SAT 92–96; BMI 53.9
--- NOTE | 2023-11-01 14:11 | XRR_ITS ---
PROCEDURE INFORMATION: Exam: XR Chest Exam date and time: 11/01/2023 2:19 PM Age: 53 years old Clinical indication: Shortness of breath; Additional info: Sob/mid back pain TECHNIQUE: Imaging protocol: Radiologic exam of the chest. Views: 1 view. COMPARISON: CR XR chest 2V* [id number] 06/27/2023 12:13 PM FINDINGS: Limitations: Examination limited by body habitus. Lungs: No focal consolidation. Pleural spaces: No sizable pleural effusion. No pneumothorax. Heart/Mediastinum: Stable enlarged cardiomediastinal silhouette. Bones/joints: The osseous structures are unremarkable. Soft tissues: Soft tissues are unremarkable as visualized. XR/XR chest 1V portable [id number] IMPRESSION: No acute findings.
--- NOTE | 2023-11-01 14:17 | ECG_ITS ---
[facility] Test Date: 2023-11-01 Pat Name: Rimma White Department: Room: Gender: Female Computer Typesetter: : 1970 Requested By: Pietro Velazquez Order Number: [id number] Lottie MD: Chidi Coburn M.D. Measurements Intervals [place] Rate: 105 P: 64 ND: 152 QRS: 48 QRSD: 89 T: 58 QT: 337 QTc: 446 Interpretive Statements SINUS TACHYCARDIA LOW QRS VOLTAGE IN PRECORDIAL LEADS [QRS DEFLECTION < 1.0 mV IN CHEST LEADS] Compared to ECG 08/31/2023 13:45:21 Sinus rhythm no longer present Myocardial infarct finding no longer present Electronically Signed On 11-01-2023 15:07:10 CDT by Chidi Coburn M.D. [id number]
[2023-11-01 14:29] LABS: Charge for UA Resulting for Rev
[2023-11-01 14:32] LABS: Bilirubin Urine Negative (Negative); Blood Urine Negative (Negative); Glucose Urine UA Negative (Normal); Ketones Urine Negative (Negative); Leukocyte Esterase Urine Negative (Negative); Nitrate Urine Negative (Negative); Protein Urine Negative (Negative); Specific Gravity, Urine 1.016 (1.005-1.030); Urine Appearance Clear (CLEAR); Urine Color Yellow (Yellow)
[2023-11-01 14:37] LABS: Bacteria Urine Trace /hpf; Hyaline Casts Urine 0-4 /lpf; RBC Urine 0-2 /hpf (0-2); Squamous Epithelial Cell Urine 0-5 /hpf (0-5); WBC Urine 0-5 /hpf (0-5)
[2023-11-01 14:51] LABS: SARS Covid-2 Antigen Positive (Negative)
[2023-11-01 14:59] LABS: Basophils % 0.3 %; Eosinophils # 0.1 10^3/uL (0.0-0.8); Eosinophils % 1.5 %; Hematocrit 44.7 % (36-47); Lymphocytes # 0.4 10^3/uL (0.8-4.8); Lymphocytes % 5.5 %; Mean Corpuscular HGB Conc 33.1 g/dL (30-55); Mean Corpuscular Hemoglobin 29.2 pg (27-33); Mean Corpuscular Volume 88.3 fl (85-98); Mean Platelet Volume 10.6 fL (7.4-10.4); Monocytes # 0.5 10^3/uL (0.2-0.9); Monocytes % 6.5 %; Neutrophils % 85.4 %; Nucleated Red Blood Cells % 0 %; Platelet Count 220 10^3/cmm (157-399); Red Blood Count 5.06 10^6/uL (3.85-5.65); Red Cell Distribution Width 13.8 % (12.1-15.1); White Blood Count 7.49 10^3/uL (3.29-11.43)
[2023-11-01 15:13] LABS: D Dimer 1.08 ug/mLFEU (0-0.59)
--- NOTE | 2023-11-01 15:14 | CTR_ITS ---
PROCEDURE INFORMATION: Exam: CTA Chest With Contrast Exam date and time: 11/01/2023 3:38 PM Age: 53 years old Clinical indication: Shortness of breath; Additional info: SOB, back pain, tachy, elevated d dimer TECHNIQUE: Imaging protocol: Computed tomographic angiography of the chest with contrast. Exam focused on the arteries. 3D rendering (Not supervised by radiologist): MIP and/or 3D reconstructed images were created by the technologist. Radiation optimization: All CT scans at this facility use at least one of these dose optimization techniques: automated exposure control; mA and/or kV adjustment per patient size (includes targeted exams where dose is matched to clinical indication); or iterative reconstruction. Contrast material: OMNI 350; Contrast volume: 100 ml; Contrast route: INTRAVENOUS (IV); COMPARISON: CT angio chest PE protcl [id number] 09/15/2018 12:38 AM RADIATION DOSE METRICS: Total DLP (mGy-cm): 514.31 FINDINGS: Pulmonary arteries: No evidence of pulmonary embolism. Aorta: The aorta demonstrates mild atherosclerotic calcification. The aorta is normal in caliber. No aneurysm. Thyroid: The visualized thyroid gland is normal. Trachea: The central airways are patent. Lungs: Mild mosaicism of the pulmonary parenchyma, which may be related to small airways disease and a degree of air trapping. No focal consolidation. Pleural spaces: No significant pleural effusion. No pneumothorax. Heart: The heart is normal in size. No pericardial effusion. Mild aortic valvular calcifications. Coronary arteries: There are severe coronary artery calcifications. Lymph nodes: Nonspecific stable enlarged right hilar lymph node measuring up to 1.0 cm in short axis, unchanged since 2019. Bones/joints: The spine demonstrates mild degenerative changes at multiple levels. Soft tissues: Soft tissues are unremarkable as visualized. CT/CT angio chest PE protcl [id number] IMPRESSION: No evidence of pulmonary embolism.
[2023-11-01 15:17] LABS: Troponin(5th) Baseline 10 ng/L (0-10)
[2023-11-01 15:25] LABS: Alanine Aminotransferase 40 U/L (0-33); Albumin Level 4.2 g/dL (3.5-5.2); Alkaline Phosphatase 154 U/L (35-105); Anion Gap 18.1 (5-19); Aspartate Amino Transferase 29 U/L (0-32); Blood Urea Nitrogen 8 mg/dL (6-20); Calcium 8.9 mg/dL (8.5-10.5); Carbon Dioxide 23 mmol/L (22-29); Chloride 97 mmol/L (98-107); Creatinine Clr Calc Pharmacy 146.3687; Globulin 2.4 g/dL (1.3-4.6); Glomerular Filtration Rate 105.4 mL/min (90-130); Glucose 111 mg/dL (65-115); Lipase 15 U/L (13-60); NT Pro B Type Natriuretic Pept 133 pg/mL (0-125); Osmolality Calculated 277 mOsm/kg (285-295); Potassium 4.1 mmol/L (3.5-5.1); Sodium 134 mmol/L (136-145); Total Bilirubin 0.8 mg/dL (0.15-1.2); Total Protein 6.6 g/dL (6.6-8.7)
[2023-11-01] MEDS: iohexol 350 mg/mL 500 mL Btl (per mL) IV (15:55)
[2023-11-01] MEDS: acetaminophen 500 mg Tablet 1000 MG PO (16:05)
--- NOTE | 2023-11-01 16:21 | ED_ITS ---
Documented by User: CHUY Garduno 11/01/23 16:32 HPI - Abdominal Pain 2 General: Chief Complaint: Abdominal Pain Stated Complaint: pain in back and right lower stomach pain, vomitti Time Seen by Provider: 11/01/23 14:03 Source: patient Mode of arrival: ambulatory Limitations: no limitations History of Present Illness: Patient is a 53-year-old female who presents the emergency department complaining of nausea vomiting associated with other symptoms beginning today. Patient states that she was exposed to a COVID-positive patient some days ago, and today has had gradual increase in nausea vomiting, right side pain, and headache. She reports a history of heart attack as well as head lesions that are currently being biopsied. She took Tylenol for her symptoms, this has not helped with her headache. She arrives tachycardic, however patient states that she always has tachycardia. She was seen here on 08/30 due to her headache, and had a CT at that time that was normal. She is also reporting a pain between her shoulder blades, and states that she does feel somewhat short of breath. She is breathing 96% on room air on arrival, noted to be afebrile. Does appear anxious, and main complaint at this time is the headache. No other symptoms or concerning historical factors reported at this time. Onset (ago): hour(s) Pain Consistency: constant Context: sick contacts (Exposed to COVID) Associated Symptoms: Reports nausea and vomiting; Denies chills, constipation, diarrhea, dysuria and fever(s) Treatments prior to arrival: other (Tylenol) Related Data Home Medications Medication Instructions Recorded Confirmed fluoxetine 40 mg capsule 40 mg PO DAILY@11/04/19 09/26/23 alprazolam 0.25 mg tablet 0.5 mg PO BID PRN anxiety 11/19/19 09/26/23 lisinopril 10 mg tablet 10 mg PO DAILY@11/19/19 09/26/23 budesonide-formoterol HFA 160 1 puff inhalation BID@02/21/20 09/26/23 mcg-4.5 mcg/actuation aerosol inhaler atorvastatin 80 mg tablet 80 mg PO DAILY 05/23/21 09/26/23 ticagrelor 90 mg tablet (Brilinta) 90 mg PO BID 05/23/21 09/26/23 Previous Rx's Medication Instructions Recorded nitroglycerin 0.4 mg sublingual 0.4 mg sublingual Q5M PRN chest 05/02/20 tablet (Nitrostat) pain #25 tabs potassium chloride 20 mEq 20 meq PO DAILY PRN edema #30 tabs 05/18/20 tablet,extended release furosemide 40 mg tablet 40 mg PO DAILY PRN edema #30 tabs 10/06/20 isosorbide mononitrate 30 mg 15 mg (1/2 x 30 mg) PO BID 30 days 05/24/21 tablet,extended release 24 hr #60 tabs metoprolol succinate 25 mg 25 mg PO DAILY@15 #30 tabs 05/28/22 tablet,extended release 24 hr pantoprazole 40 mg tablet,delayed 40 mg PO DAILY@15 #30 tabs 05/28/22 release fluconazole 150 mg tablet 150 mg PO ONCE #1 tab 08/26/22 ondansetron 4 mg oral soluble film 4 mg PO DAILY PRN nausea and 11/17/22 vomiting #10 ea sitagliptin phosphate 100 mg 100 mg PO DAILY #90 tabs 04/03/23 tablet (Januvia) magnesium 200 mg tablet 200 mg PO DAILY #30 tabs 04/21/23 sennosides 8.6 mg-docusate sodium 2 tab-cap (2 x 8.6-50 mg) PO BID 04/21/23 50 mg tablet (Senna-S) #60 tabs acarbose 25 mg tablet 25 mg PO TID #90 tabs 09/26/23 blood-glucose meter,continuous #1 ea 09/26/23 (Dexcom G7 Paper Making Machine Operator) blood-glucose sensor (Dexcom G7 #3 ea 09/26/23 Sensor device) insulin degludec 100 unit/mL (3 35 unit (0.35 mL) SUBCUT BID #63 mL 09/26/23 mL) subcutaneous pen (Tresiba FlexTouch U-100 insulin) metformin 1,000 mg tablet 1,000 mg PO BID #60 tabs 09/26/23 tirzepatide 2.5 mg/0.5 mL 2.5 mg (0.5 mL) SUBCUT Q7D 1 month 09/26/23 subcutaneous pen injector #2 mL (Destiny) tirzepatide 5 mg/0.5 mL 5 mg (0.5 mL) SUBCUT Q7D 1 month 09/26/23 subcutaneous pen injector #2 mL (Mounjaro) tirzepatide 7.5 mg/0.5 mL 7.5 mg (0.5 mL) SUBCUT Q7D #2 mL 09/26/23 subcutaneous pen injector (Mounjaro) Allergies Allergy/AdvReac Type Severity Reaction Status Date / Time quetiapine [From Seroquel] Allergy Restless Verified 09/26/23 07:56 legs, acts like she is drunk tetracycline Allergy vomiting Verified 09/26/23 07:56 Review of Systems 2 General: Reports: 10 or more systems reviewed and unremarkable except in HPI and below Const: Denies: fever(s), chills or fatigue Eyes: Denies: change in vision ENMT: Denies: throat pain, ear or mastoid pain or nasal discharge Card: Denies: chest pain, palpitations, swelling of feet/ankles or lightheadedness Resp: Reports: dyspnea; Denies: productive cough or wheezing GI: Reports: nausea and vomiting; Denies: abdominal pain, diarrhea or constipation : Denies: flank pain, difficulty voiding, dysuria or urinary frequency Musc: Reports: back pain and other (Right side pain); Denies: neck pain or joint pain Skin/Breast: Denies: rash Neuro: Reports: headache(s); Denies: numbness in extremities or weakness in extremities PFSH ED 2 PFSH: Medical History (HFpEF) heart failure with preserved eje ction fraction Chest pain Asthma Diastolic heart failure Coronary artery disease Obesity Hypertension Diabetes Surgical History History of umbilical hernia repair Family History Other Hypertension Social History Smoking and tobacco/nicotine status: never used tobacco/nicotine Alcohol intake: current Alcohol intake frequency: holidays/special occasions only Physical Exam 2 Const: COMMON NORMALS: patient oriented x3, no limitations, alert and well nourished GENERAL APPEARANCE: cooperative and anxious NUTRITIONAL APPEARANCE: obese morbidly obese ORIENTATION/CONSCIOUSNESS: Yes awake HENMT: COMMON NORMALS: normocephalic, atraumatic, hearing grossly normal bilaterally, external ears normal, Normal external nose present, Normal nasal mucous membranes and turbinates present and moist oral mucous membranes HEAD & SCALP: normocephalic and atraumatic NOSE: Normal external nose present and Normal nasal mucous membranes and turbinates present EXTERNAL EAR: Yes external ears normal Eye: COMMON NORMALS: Equal, round and reactive pupils present, EOMs intact bilaterally, conjunctivae normal and normal visual moreno by confrontation C ONJUNCTIVA: Yes conjunctivae normal PUPIL: Yes Equal, round and reactive pupils present Neck/C-Spine: COMMON NORMALS: full ROM, supple, no meningeal signs and no JVD Resp: COMMON NORMALS: normal respiratory effort, No retractions, No use of accessory muscles and clear to auscultation bilaterally AUSCULTATION: clear to auscultation bilaterally, no crackles, no rales, no rhonchi and no wheezes Cardio: COMMON NORMALS: no JVD, regular rhythm, S1 normal heart sound present, S2 normal heart sound present, No gallops present (Cardio), No clicks present (Cardio), No murmurs present (Cardio), No rub (Cardio) and Peripheral pulses 2+ throughout RATE: tachycardic RHYTHM: regular rhythm HEART SOUNDS: S1 normal heart sound present and S2 normal heart sound present PERIPHERAL PULSES: Peripheral pulses 2+ throughout GI: COMMON NORMALS: Normal to inspection, nondistended, normoactive bowel sounds present, Soft to palpation, non-tender, No hepatosplenomegaly present and no masses INSPECTION: Yes central obesity AUSCULTATION: Yes normoactive bowel sounds PALPATION: Yes Soft to palpation, No Guarding due to palpation present (GI), No Rigid due to palpation and Yes No hepatosplenomegaly present RECTAL EXAM: deferred : COMMON NORMALS: Yes no CVA tenderness BLADDER/KIDNEY EXAM: Yes no CVA tenderness Back/Pelvis: COMMON NORMALS: no CVA tenderness Extremity: COMMON NORMALS: normal to inspection and full ROM Neuro: COMMON NORMALS: patient oriented x3, moves all extremities, no focal motor deficits and no sensory deficits noted SENSORIUM/ORIENTATION: Yes alert MENINGEAL SIGNS: Yes no meningeal signs Psych: COMMON NORMALS: mental status grossly normal, cooperative and speech normal SPEECH: Yes normal speech Skin: COMMON NORMALS: no rashes or lesions noted GENERAL SKIN EXAM: no rashes or lesions noted Course 2 Vital Signs: Vital signs: Vital Signs Temperature 99.0 F 11/01/23 13:01 Pulse Rate 110 H 11/01/23 18:00 Respiratory Rate 17 11/01/23 18:00 Blood Pressure 159/86 11/01/23 18:00 Pulse Oximetry 94 11/01/23 18:00 Oxygen Delivery Me thod Room Air 11/01/23 18:00 MDM - Abdominal Pain Medical Decision Making Patient presented with onset of symptoms this morning, including nausea vomiting, headache, and states she was exposed to COVID. Reported history of [facility] as well as other extensive history, was concerned with her onset of symptoms. She did arrive tachycardic, but she states she is always running high with a heart rate. Noted to be afebrile and breathing comfortably on room air. COVID swab was positive. Lab workup unremarkable including negative CBC, CMP, Trop, lipase, BNP, and urinalysis. A D-dimer was obtained and found to be elevated, due to her tachycardia, reported short of breath, and back pain, CTA obtained and did not demonstrate any signs of a PE. In addition her EKG was reviewed by physician, showed sinus tachycardia rate 105 with no signs of STEMI. I do believe her array of symptoms related to COVID, and she has been worked up here prior for the headache. She does feel little better after receiving Tylenol here, and her vitals have remained stable for her. Contact precautions were encouraged, and she is also instructed to follow-up with her primary care later next week. Instructed to take Tylenol ibuprofen at home for fevers and bodyaches and hydrate adequately. Strict return precautions were given. Patient discharged home after receiving liter of fluids. Lab Data 11/01/23 14:35 11/01/23 14:35 Labs/Radiology: Radiology Impressions Chest X-Ray 11/01/23 14:11 IMPRESSION: No acute findings. Chest CTA 11/01/23 15:14 IMPRESSION: No evidence of pulmonary embolism. Laboratory Results WBC 7.49 10^3/uL (3.29-11.43) 11/01/23 14:35 RBC 5.06 10^6/uL (3.85-5.65) 11/01/23 14:35 Hgb 14.80 g/dL (11.27-16.99) 11/01/23 14:35 Hct 44.7 % (36-47) 11/01/23 14:35 MCV 88.3 fl (85-98) 11/01/23 14:35 MCH 29.2 pg (27-33) 11/01/23 14:35 MCHC 33.1 g/dL (30-55) 11/01/23 14:35 RDW 13.8 % (12.1-15.1) 11/01/23 14:35 Plt Count 220 10^3/cmm (157-399) 11/01/23 14:35 MPV 10.6 fL (7.4-10.4) H 11/01/23 14:35 Neut % (Auto) 85.4 % 11/01/23 14:35 Lymph % (Auto) 5.5 % 11/01/23 14:35 [place] % (Auto) 6.5 % 11/01/23 14:35 Eos % (Auto) 1.5 % 11/01/23 14:35 Baso % (Auto) 0.3 % 11/01/23 14:35 Neut # (Auto) 6.40 10^3/uL (1.8-7.7) 11/01/23 14:35 Lymph # (Auto) 0.4 10^3/uL (0.8-4.8) L 11/01/23 14:35 [place] # (Auto) 0.5 10^3/uL (0.2-0.9) 11/01/23 14:35 Eos # (Auto) 0.1 10^3/uL (0.0-0.8) 11/01/23 14:35 Baso # (Auto) 0.0 10^3/uL (0.0-0.1) 11/01/23 14:35 Nucleated RBC % (auto) 0 % 11/01/23 14:35 Nucleated RBCs # 0.0 /100WBC 11/01/23 14:35 D-Dimer 1.08 ug/mLFEU (0-0.59) H 11/01/23 14:35 Sodium 134 mmol/L (136-145) L 11/01/23 14:35 Potassium 4.1 mmol/L (3.5-5.1) 11/01/23 14:35 Chloride 97 mmol/L (98-107) L 11/01/23 14:35 Carbon Dioxide 23 mmol/L (22-29) 11/01/23 14:35 Anion Gap 18.1 (5-19) 11/01/23 14:35 BUN 8 mg/dL (6-20) 11/01/23 14:35 Creatinine 0.6 mg/dL (0.5-0.9) 11/01/23 14:35 GFR Calculation 105.4 mL/min (90-130) 11/01/23 14:35 Glucose 111 mg/dL (65-115) 11/01/23 14:35 Calculated Osmolality 277 mOsm/kg (285-295) L 11/01/23 14:35 Calcium 8.9 mg/dL (8.5-10.5) 11/01/23 14:35 Total Bilirubin 0.8 mg/dL (0.15-1.2) 11/01/23 14:35 AST 29 U/L (0-32) 11/01/23 14:35 ALT 40 U/L (0-33) H 11/01/23 14:35 Alkaline Phosphatase 154 U/L (35-105) H 11/01/23 14:35 Troponin T Baseline 10 ng/L (0-10) 11/01/23 14:35 NT-Pro-B Natriuret Pep 133 pg/mL (0-125) H 11/01/23 14:35 Total Protein 6.6 g/dL (6.6-8.7) 11/01/23 14:35 Albumin 4.2 g/dL (3.5-5.2) 11/01/23 14:35 Globulin 2.4 g/dL (1.3-4.6) 11/01/23 14:35 Lipase 15 U/L (13-60) 11/01/23 14:35 Urine Color Yellow (Yellow) 11/01/23 14:05 Urine Appearance Clear (CLEAR) 11/01/23 14:05 Urine pH 6.0 (5-7) 11/01/23 14:05 Ur Specific [place] 1.016 (1.005-1.030) 11/01/23 14:05 Urine Protein Negative (Negative) 11/01/23 14:05 Urine Glucose (UA) Negative (Normal) 11/01/23 14:05 Urine Ketones Negative (Negative) 11/01/23 14:05 Urine Blood Negative (Negative) 11/01/23 14:05 Urine Nitrate Negative (Negative) 11/01/23 14:05 Urine Bilirubin Negative (Negative) 11/01/23 14:05 Urine Urobilinogen 1.0 mg/dL (Negative) 11/01/23 14:05 Ur Leukocyte Esterase Negative (Negative) 11/01/23 14:05 Urine RBC 0-2 /hpf (0-2) 11/01/23 14:05 Urine WBC 0-5 /hpf (0-5) 11/01/23 14:05 Ur Squamous Epith Cells 0-5 /hpf (0-5) 11/01/23 14:05 Amorphous Sediment Not Reportable 11/01/23 14:05 Urine Bacteria Trace /hpf (NONE) 11/01/23 14:05 Hyaline Casts 0-4 /lpf H 11/01/23 14:05 SARS-CoV-2 Ag (Rapid) Positive (Negative) H 11/01/23 14:21 All radiology interpretation(s) finalized by discharge Discharge Plan Discharge Patient Disposition: Home Clinical Impression: COVID Condition: Stable Prescriptions: No Action fluoxetine 40 mg capsule 40 mg PO DAILY@15 alprazolam 0.25 mg tablet 0.5 mg PO BID PRN (Reason: anxiety) lisinopril 10 mg tablet 10 mg PO DAILY@15 nitroglycerin [Nitrostat] 0.4 mg tablet, sublingual 0.4 mg sublingual Q5M PRN (Reason: chest pain) Qty: 25 3RF Rx Instructions: do not exceed 3 doses per episode potassium chloride 20 mEq tablet extended release 20 meq PO DAILY PRN (Reason: edema) Qty: 30 3RF Rx Instructions: when taking Lasix fluconazole 150 mg tablet 150 mg PO ONCE Qty: 1 0RF insulin degludec [Tresiba FlexTouch U-100] 100 unit/mL (3 mL) insulin pen 35 unit SUBCUT BID Qty: 63 1RF (DME) Dexcom G7 Paper Making Machine Operator Misc See Rx Instructions .Route Qty: 1 0RF Rx Instructions: As directed (DME) Dexcom G7 Sensor Device See Rx Instructions .Route Qty: 3 3RF Rx Instructions: As directed Mounjaro 2.5 mg/0.5 mL pen injector 2.5 mg SUBCUT Q7D 30 Days Qty: 2 0RF Rx Instructions: 2.5mg weekly for one month Mounjaro 5 mg/0.5 mL pen injector 5 mg SUBCUT Q7D 30 Days Qty: 2 0RF Rx Instructions: 5mg weekly for one month Mounjaro 7.5 mg/0.5 mL pen injector 7.5 mg SUBCUT Q7D Qty: 2 1RF Rx Instructions: 7.5mg weekly acarbose 25 mg tablet 25 mg PO TID Qty: 90 1RF Rx Instructions: take one before meals metformin 1,000 mg tablet 1,000 mg PO BID Qty: 60 1RF furosemide 40 mg tablet 40 mg PO DAILY PRN (Reason: edema) Qty: 30 6RF Rx Instructions: for 3 days daily then prn metoprolol succinate 25 mg tablet extended release 24 hr 25 mg PO DAILY@15 Qty: 30 0RF Rx Instructions: MUST have follow-up for further refills pantoprazole 40 mg tablet,delayed release (DR/EC) 40 mg PO DAILY@15 Qty: 30 0RF Rx Instructions: MUST have follow-up for further refills Januvia 100 mg tablet 100 mg PO DAILY Qty: 90 0RF budesonide-formoterol 160-4.5 mcg/actuation HFA aerosol inhaler 1 puff INHALATION BID@15,22 atorvastatin 80 mg tablet 80 mg PO DAILY Brilinta 90 mg tablet 90 mg PO BID isosorbide mononitrate 30 mg tablet extended release 24 hr 15 mg PO BID 30 Days Qty: 60 2RF Senna-S 8.6-50 mg tablet 2 tab-cap PO BID Qty: 60 0RF magnesium 200 mg tablet 200 mg PO DAILY Qty: 30 0RF ondansetron 4 mg film 4 mg PO DAILY PRN (Reason: nausea and vomiting) Qty: 10 0RF Discharge Orders: Discharge ED (Routine); Ordered 11/01/23 Ordered By: Pietro Raines Referrals: Christa Arana PA [Primary Care Provider] - Discharge Diet: As Directed Discharge Activity: Increase activity as tolerated Patient Instructions: COVID-19 (Coronavirus Disease 2019) (ED) Activity Restrictions/Additional Instructions: Contact precautions as discussed. Tylenol and ibuprofen for any body aches or fevers. Plenty of fluids. Please follow-up with primary care next week for reevaluation. Return with any new or concerning symptoms such as any worsening of shortness of breath or uncontrollable fevers. Coding Level of Care Code ED Butter Liquefier for Chg Fwd Documented by User: Juarez Triana DO 11/03/23 05:45 HPI - Abdominal Pain 2 General: Chief Complaint: Abdominal Pain Stated Complaint: pain in back and right lower stomach pain, vomitti Time Seen by Provider: 11/01/23 14:03 Related Data Home Medications Medication Instructions Recorded Confirmed fluoxetine 40 mg capsule 40 mg PO DAILY@11/04/19 09/26/23 alprazolam 0.25 mg tablet 0.5 mg PO BID PRN anxiety 11/19/19 09/26/23 lisinopril 10 mg tablet 10 mg PO DAILY@11/19/19 09/26/23 budesonide-formoterol HFA 160 1 puff inhalation BID@02/21/20 09/26/23 mcg-4.5 mcg/actuation aerosol inhaler atorvastatin 80 mg tablet 80 mg PO DAILY 05/23/21 09/26/23 ticagrelor 90 mg tablet (Brilinta) 90 mg PO BID 05/23/21 09/26/23 Previous Rx's Medication Instructions Recorded nitroglycerin 0.4 mg sublingual 0.4 mg sublingual Q5M PRN chest 05/02/20 tablet (Nitrostat) pain #25 tabs potassium chloride 20 mEq 20 meq PO DAILY PRN edema #30 tabs 05/18/20 tablet,extended release furosemide 40 mg tablet 40 mg PO DAILY PRN edema #30 tabs 10/06/20 isosorbide mononitrate 30 mg 15 mg (1/2 x 30 mg) PO BID 30 days 05/24/21 tablet,extended release 24 hr #60 tabs metoprolol succinate 25 mg 25 mg PO DAILY@15 #30 tabs 05/28/22 tablet,extended release 24 hr pantoprazole 40 mg tablet,delayed 40 mg PO DAILY@15 #30 tabs 05/28/22 release fluconazole 150 mg tablet 150 mg PO ONCE #1 tab 08/26/22 ondansetron 4 mg oral soluble film 4 mg PO DAILY PRN nausea and 11/17/22 vomiting #10 ea sitagliptin phosphate 100 mg 100 mg PO DAILY #90 tabs 04/03/23 tablet (Januvia) magnesium 200 mg tablet 200 mg PO DAILY #30 tabs 04/21/23 sennosides 8.6 mg-docusate sodium 2 tab-cap (2 x 8.6-50 mg) PO BID 04/21/23 50 mg tablet (Senna-S) #60 tabs acarbose 25 mg tablet 25 mg PO TID #90 tabs 09/26/23 blood-glucose meter,continuous #1 ea 09/26/23 (Dexcom G7 Paper Making Machine Operator) blood-glucose sensor (Dexcom G7 #3 ea 09/26/23 Sensor device) insulin degludec 100 unit/mL (3 35 unit (0.35 mL) SUBCUT BID #63 mL 09/26/23 mL) subcutaneous pen (Tresiba FlexTouch U-100 insulin) metformin 1,000 mg tablet 1,000 mg PO BID #60 tabs 09/26/23 tirzepatide 2.5 mg/0.5 mL 2.5 mg (0.5 mL) SUBCUT Q7D 1 month 09/26/23 subcutaneous pen injector #2 mL (Mounjaro) tirzepatide 5 mg/0.5 mL 5 mg (0.5 mL) SUBCUT Q7D 1 month 09/26/23 subcutaneous pen injector #2 mL (Mounjaro) tirzepatide 7.5 mg/0.5 mL 7.5 mg (0.5 mL) SUBCUT Q7D #2 mL 09/26/23 subcutaneous pen injector (Mounjaro) Allergies Allergy/AdvReac Type Severity Reaction Status Date / Time quetiapine [From Seroquel] Allergy Restless Verified 09/26/23 07:56 legs, acts like she is drunk tetracycline Allergy vomiting Verified 09/26/23 07:56 PFSH ED 2 PFSH: Medical History (HFpEF) heart failure with preserved eje ction fraction Chest pain Asthma Diastolic heart failure Coronary artery disease Obesity Hypertension Diabetes Surgical History History of umbilical hernia repair Family History Other Hypertension Social History Smoking and tobacco/nicotine status: never used tobacco/nicotine Alcohol intake: current Alcohol intake frequency: holidays/special occasions only Course 2 Vital Signs: Vital signs: Vital Signs Temperature 99.0 F 11/01/23 13:01 Pulse Rate 110 H 11/01/23 18:00 Respiratory Rate 17 11/01/23 18:00 Blood Pressure 159/86 11/01/23 18:00 Pulse Oximetry 94 11/01/23 18:00 Oxygen Delivery Me thod Room Air 11/01/23 18:00 MDM - Abdominal Pain Medical Decision Making Patient presented with onset of symptoms this morning, including nausea vomiting, headache, and states she was exposed to COVID. Reported history of [facility] as well as other extensive history, was concerned with her onset of symptoms. She did arrive tachycardic, but she states she is always running high with a heart rate. Noted to be afebrile and breathing comfortably on room air. COVID swab was positive. Lab workup unremarkable including negative CBC, CMP, Trop, lipase, BNP, and urinalysis. A D-dimer was obtained and found to be elevated, due to her tachycardia, reported short of breath, and back pain, CTA obtained and did not demonstrate any signs of a PE. In addition her EKG was reviewed by physician, showed sinus tachycardia rate 105 with no signs of STEMI. I do believe her array of symptoms related to COVID, and she has been worked up here prior for the headache. She does feel little better after receiving Tylenol here, and her vitals have remained stable for her. Contact precautions were encouraged, and she is also instructed to follow-up with her primary care later next week. Instructed to take Tylenol ibuprofen at home for fevers and bodyaches and hydrate adequately. Strict return precautions were given. Patient discharged home after receiving liter of fluids. Chart reviewed Lab Data 11/01/23 14:35 11/01/23 14:35 Labs/Radiology: Radiology Impressions Chest X-Ray 11/01/23 14:11 IMPRESSION: No acute findings. Chest CTA 11/01/23 15:14 IMPRESSION: No evidence of pulmonary embolism. Laboratory Results WBC 7.49 10^3/uL (3.29-11.43) 11/01/23 14:35 RBC 5.06 10^6/uL (3.85-5.65) 11/01/23 14:35 Hgb 14.80 g/dL (11.27-16.99) 11/01/23 14:35 Hct 44.7 % (36-47) 11/01/23 14:35 MCV 88.3 fl (85-98) 11/01/23 14:35 MCH 29.2 pg (27-33) 11/01/23 14:35 MCHC 33.1 g/dL (30-55) 11/01/23 14:35 RDW 13.8 % (12.1-15.1) 11/01/23 14:35 Plt Count 220 10^3/cmm (157-399) 11/01/23 14:35 MPV 10.6 fL (7.4-10.4) H 11/01/23 14:35 Neut % (Auto) 85.4 % 11/01/23 14:35 Lymph % (Auto) 5.5 % 11/01/23 14:35 [place] % (Auto) 6.5 % 11/01/23 14:35 Eos % (Auto) 1.5 % 11/01/23 14:35 Baso % (Auto) 0.3 % 11/01/23 14:35 Neut # (Auto) 6.40 10^3/uL (1.8-7.7) 11/01/23 14:35 Lymph # (Auto) 0.4 10^3/uL (0.8-4.8) L 11/01/23 14:35 [place] # (Auto) 0.5 10^3/uL (0.2-0.9) 11/01/23 14:35 Eos # (Auto) 0.1 10^3/uL (0.0-0.8) 11/01/23 14:35 Baso # (Auto) 0.0 10^3/uL (0.0-0.1) 11/01/23 14:35 Nucleated RBC % (auto) 0 % 11/01/23 14:35 Nucleated RBCs # 0.0 /100WBC 11/01/23 14:35 D-Dimer 1.08 ug/mLFEU (0-0.59) H 11/01/23 14:35 Sodium 134 mmol/L (136-145) L 11/01/23 14:35 Potassium 4.1 mmol/L (3.5-5.1) 11/01/23 14:35 Chloride 97 mmol/L (98-107) L 11/01/23 14:35 Carbon Dioxide 23 mmol/L (22-29) 11/01/23 14:35 Anion Gap 18.1 (5-19) 11/01/23 14:35 BUN 8 mg/dL (6-20) 11/01/23 14:35 Creatinine 0.6 mg/dL (0.5-0.9) 11/01/23 14:35 GFR Calculation 105.4 mL/min (90-130) 11/01/23 14:35 Glucose 111 mg/dL (65-115) 11/01/23 14:35 Calculated Osmolality 277 mOsm/kg (285-295) L 11/01/23 14:35 Calcium 8.9 mg/dL (8.5-10.5) 11/01/23 14:35 Total Bilirubin 0.8 mg/dL (0.15-1.2) 11/01/23 14:35 AST 29 U/L (0-32) 11/01/23 14:35 ALT 40 U/L (0-33) H 11/01/23 14:35 Alkaline Phosphatase 154 U/L (35-105) H 11/01/23 14:35 Troponin T Baseline 10 ng/L (0-10) 11/01/23 14:35 NT-Pro-B Natriuret Pep 133 pg/mL (0-125) H 11/01/23 14:35 Total Protein 6.6 g/dL (6.6-8.7) 11/01/23 14:35 Albumin 4.2 g/dL (3.5-5.2) 11/01/23 14:35 Globulin 2.4 g/dL (1.3-4.6) 11/01/23 14:35 Lipase 15 U/L (13-60) 11/01/23 14:35 Urine Color Yellow (Yellow) 11/01/23 14:05 Urine Appearance Clear (CLEAR) 11/01/23 14:05 Urine pH 6.0 (5-7) 11/01/23 14:05 Ur Specific [place] 1.016 (1.005-1.030) 11/01/23 14:05 Urine Protein Negative (Negative) 11/01/23 14:05 Urine Glucose (UA) Negative (Normal) 11/01/23 14:05 Urine Ketones Negative (Negative) 11/01/23 14:05 Urine Blood Negative (Negative) 11/01/23 14:05 Urine Nitrate Negative (Negative) 11/01/23 14:05 Urine Bilirubin Negative (Negative) 11/01/23 14:05 Urine Urobilinogen 1.0 mg/dL (Negative) 11/01/23 14:05 Ur Leukocyte Esterase Negative (Negative) 11/01/23 14:05 Urine RBC 0-2 /hpf (0-2) 11/01/23 14:05 Urine WBC 0-5 /hpf (0-5) 11/01/23 14:05 Ur Squamous Epith Cells 0-5 /hpf (0-5) 11/01/23 14:05 Amorphous Sediment Not Reportable 11/01/23 14:05 Urine Bacteria Trace /hpf (NONE) 11/01/23 14:05 Hyaline Casts 0-4 /lpf H 11/01/23 14:05 SARS-CoV-2 Ag (Rapid) Positive (Negative) H 11/01/23 14:21 Discharge Plan Discharge Patient Disposition: Home Clinical Impression: COVID Condition: Stable Prescriptions: No Action fluoxetine 40 mg capsule 40 mg PO DAILY@15 alprazolam 0.25 mg tablet 0.5 mg PO BID PRN (Reason: anxiety) lisinopril 10 mg tablet 10 mg PO DAILY@15 nitroglycerin [Nitrostat] 0.4 mg tablet, sublingual 0.4 mg sublingual Q5M PRN (Reason: chest pain) Qty: 25 3RF Rx Instructions: do not exceed 3 doses per episode potassium chloride 20 mEq tablet extended release 20 meq PO DAILY PRN (Reason: edema) Qty: 30 3RF Rx Instructions: when taking Lasix fluconazole 150 mg tablet 150 mg PO ONCE Qty: 1 0RF insulin degludec [Tresiba FlexTouch U-100] 100 unit/mL (3 mL) insulin pen 35 unit SUBCUT BID Qty: 63 1RF (DME) Dexcom G7 Paper Making Machine Operator Misc See Rx Instructions .Route Qty: 1 0RF Rx Instructions: As directed (DME) Dexcom G7 Sensor Device See Rx Instructions .Route Qty: 3 3RF Rx Instructions: As directed Mounjaro 2.5 mg/0.5 mL pen injector 2.5 mg SUBCUT Q7D 30 Days Qty: 2 0RF Rx Instructions: 2.5mg weekly for one month Mounjaro 5 mg/0.5 mL pen injector 5 mg SUBCUT Q7D 30 Days Qty: 2 0RF Rx Instructions: 5mg weekly for one month Mounjaro 7.5 mg/0.5 mL pen injector 7.5 mg SUBCUT Q7D Qty: 2 1RF Rx Instructions: 7.5mg weekly acarbose 25 mg tablet 25 mg PO TID Qty: 90 1RF Rx Instructions: take one before meals metformin 1,000 mg tablet 1,000 mg PO BID Qty: 60 1RF furosemide 40 mg tablet 40 mg PO DAILY PRN (Reason: edema) Qty: 30 6RF Rx Instructions: for 3 days daily then prn metoprolol succinate 25 mg tablet extended release 24 hr 25 mg PO DAILY@15 Qty: 30 0RF Rx Instructions: MUST have follow-up for further refills pantoprazole 40 mg tablet,delayed release (DR/EC) 40 mg PO DAILY@15 Qty: 30 0RF Rx Instructions: MUST have follow-up for further refills Januvia 100 mg tablet 100 mg PO DAILY Qty: 90 0RF budesonide-formoterol 160-4.5 mcg/actuation HFA aerosol inhaler 1 puff INHALATION BID@15,22 atorvastatin 80 mg tablet 80 mg PO DAILY Brilinta 90 mg tablet 90 mg PO BID isosorbide mononitrate 30 mg tablet extended release 24 hr 15 mg PO BID 30 Days Qty: 60 2RF Senna-S 8.6-50 mg tablet 2 tab-cap PO BID Qty: 60 0RF magnesium 200 mg tablet 200 mg PO DAILY Qty: 30 0RF ondansetron 4 mg film 4 mg PO DAILY PRN (Reason: nausea and vomiting) Qty: 10 0RF Discharge Orders: Discharge ED (Routine); Ordered 11/01/23 Ordered By: Pietro Raines Referrals: Christa Arana PA [Primary Care Provider] - Discharge Diet: As Directed Discharge Activity: Increase activity as tolerated Patient Instructions: COVID-19 (Coronavirus Disease 2019) (ED) Activity Restrictions/Additional Instructions: Contact precautions as discussed. Tylenol and ibuprofen for any body aches or fevers. Plenty of fluids. Please follow-up with primary care next week for reevaluation. Return with any new or concerning symptoms such as any worsening of shortness of breath or uncontrollable fevers. Coding Level of Care Code ED Butter Liquefier for Meli Sawant
[2023-11-01] MEDS: sodium chloride 0.9% 1,000 ML 999 ML IV (16:31)
== END 2023-11-01 18:13 | disposition home or self-care (01) ==
PROVIDERS: Emergency Provider Physician Assistant; PCP Physician Assistant
DX: U07.1 COVID-19 (principal); Z79.4 Long term (current) use of insulin; Z79.85 Long-term (current) use of injectable non-insulin antidiabetic drugs; Z79.84 Long term (current) use of oral hypoglycemic drugs; I11.0 Hypertensive heart disease with heart failure; I50.30 Unspecified diastolic (congestive) heart failure; I25.10 Atherosclerotic heart disease of native coronary artery without angina pectoris; E11.9 Type 2 diabetes mellitus without complications
CPT/HCPCS: 36415; 71045; 71275; 80053; 81003; 81015; 83690; 83880; 84484; 85025; 85378; 87426; 93005; 96360; 99285; J7030

== ENCOUNTER 2023-11-06 01:53 | Emergency (ER) | payer BC, SELFPAY ==
[2023-11-06] VITALS (10 sets, daily range): BP systolic 103–206; BP diastolic 67–143; PULSE 75–91; RESP 17–80; TEMP 36.4; O2SAT 90–95; BMI 53.9
--- NOTE | 2023-11-06 02:15 | ED_ITS ---
HPI - Epistaxis General: Chief complaint: Epistaxis Stated complaint: Nose Bleed Time Seen by Provider: 11/06/23 02:04 History of Present Illness: Presents to the ER with right-sided epistaxis. Is been going on all day. She eventually had to call EMS and they packed it and stopped it. She came here by private vehicle. Patient's blood pressure upon arrival was 206/143. She says she has been out of her metoprolol for 2 or 3 days. Patient also had COVID this weekend. Patient denies any type of anticoagulant usage. Related Data Home Medications Medication Instructions Recorded Confirmed fluoxetine 40 mg capsule 40 mg PO DAILY@11/04/19 09/26/23 alprazolam 0.25 mg tablet 0.5 mg PO BID PRN anxiety 11/19/19 09/26/23 lisinopril 10 mg tablet 10 mg PO DAILY@11/19/19 09/26/23 budesonide-formoterol HFA 160 1 puff inhalation BID@02/21/20 09/26/23 mcg-4.5 mcg/actuation aerosol inhaler atorvastatin 80 mg tablet 80 mg PO DAILY 05/23/21 09/26/23 ticagrelor 90 mg tablet (Brilinta) 90 mg PO BID 05/23/21 09/26/23 Previous Rx's Medication Instructions Recorded nitroglycerin 0.4 mg sublingual 0.4 mg sublingual Q5M PRN chest 05/02/20 tablet (Nitrostat) pain #25 tabs potassium chloride 20 mEq 20 meq PO DAILY PRN edema #30 tabs 05/18/20 tablet,extended release furosemide 40 mg tablet 40 mg PO DAILY PRN edema #30 tabs 10/06/20 isosorbide mononitrate 30 mg 15 mg (1/2 x 30 mg) PO BID 30 days 05/24/21 tablet,extended release 24 hr #60 tabs metoprolol succinate 25 mg 25 mg PO DAILY@15 #30 tabs 05/28/22 tablet,extended release 24 hr pantoprazole 40 mg tablet,delayed 40 mg PO DAILY@15 #30 tabs 05/28/22 release fluconazole 150 mg tablet 150 mg PO ONCE #1 tab 08/26/22 ondansetron 4 mg oral soluble film 4 mg PO DAILY PRN nausea and 11/17/22 vomiting #10 ea sitagliptin phosphate 100 mg 100 mg PO DAILY #90 tabs 04/03/23 tablet (Januvia) magnesium 200 mg tablet 200 mg PO DAILY #30 tabs 04/21/23 sennosides 8.6 mg-docusate sodium 2 tab-cap (2 x 8.6-50 mg) PO BID 04/21/23 50 mg tablet (Senna-S) #60 tabs acarbose 25 mg tablet 25 mg PO TID #90 tabs 09/26/23 blood-glucose meter,continuous #1 ea 09/26/23 (Dexcom G7 Imaging Specialist) blood-glucose sensor (Dexcom G7 #3 ea 09/26/23 Sensor device) insulin degludec 100 unit/mL (3 35 unit (0.35 mL) SUBCUT BID #63 mL 09/26/23 mL) subcutaneous pen (Tresiba FlexTouch U-100 insulin) metformin 1,000 mg tablet 1,000 mg PO BID #60 tabs 09/26/23 tirzepatide 2.5 mg/0.5 mL 2.5 mg (0.5 mL) SUBCUT Q7D 1 month 09/26/23 subcutaneous pen injector #2 mL (Mounjaro) tirzepatide 5 mg/0.5 mL 5 mg (0.5 mL) SUBCUT Q7D 1 month 09/26/23 subcutaneous pen injector #2 mL (Mounjaro) tirzepatide 7.5 mg/0.5 mL 7.5 mg (0.5 mL) SUBCUT Q7D #2 mL 09/26/23 subcutaneous pen injector (Mounjaro) Allergies Allergy/AdvReac Type Severity Reaction Status Date / Time quetiapine [From Seroquel] Allergy Restless Verified 09/26/23 07:56 legs, acts like she is drunk tetracycline Allergy vomiting Verified 09/26/23 07:56 Review of Systems General: Reports: 10 or more systems reviewed and unremarkable except in HPI and below PFSH ED PFSH: Medical History (HFpEF) heart failure with preserved eje ction fraction Chest pain Asthma Diastolic heart failure Coronary artery disease Obesity Hypertension Diabetes Surgical History History of umbilical hernia repair Family History Other Hypertension Social History Smoking and tobacco/nicotine status: never used tobacco/nicotine Alcohol intake: current Alcohol intake frequency: holidays/special occasions only Physical Exam Const: COMMON NORMALS: no acute distress, average body habitus, patient oriented x3, no limitations, healthy appearing, alert and well nourished HENMT: COMMON NORMALS: normocephalic, hearing grossly normal bilaterally, external ears normal and moist oral mucous membranes; external nose not normal (Bleeding noted from her right naris) HEAD & SCALP: normocephalic NOSE: external nose not normal (Bleeding noted from her right naris) EXTERNAL EAR: Yes external ears normal Neck/C-Spine: COMMON NORMALS: full ROM, no lymphadenopathy, supple, no meningeal signs, no JVD and Thyroid normal THYROID: Thyroid normal Chest: COMMONS NORMALS: normal inspection of the chest and normal palpation of entire chest wall Resp: COMMON NORMALS: normal respiratory effort, No retractions, No use of accessory muscles and clear to auscultation bilaterally AUSCULTATION: clear to auscultation bilaterally Cardio: COMMON NORMALS: no JVD, regular rate, regular rhythm, S1 normal heart sound present, S2 normal heart sound present, No gallops present (Cardio), No clicks present (Cardio), No murmurs present (Cardio) and No rub (Cardio) RATE: regular rate RHYTHM: regular rhythm HEART SOUNDS: S1 normal heart sound present and S2 normal heart sound present Neuro: COMMON NORMALS: patient oriented x3 SENSORIUM/ORIENTATION: Yes alert MENINGEAL SIGNS: Yes no meningeal signs Procedures Epistaxis Control Time Out Performed: Yes Nostril: right Direct Inspection: unable to visualize Device Inserted: hemostatic balloon Patient Tolerated Procedure: no complications Course Vital Signs: Vital signs: Vital Signs Temperature 97.6 F 11/06/23 02:01 Pulse Rate 75 11/06/23 04:00 Respiratory Rate 17 11/06/23 02:08 Blood Pressure 103/67 11/06/23 04:00 Pulse Oximetry 92 11/06/23 04:00 Oxygen Delivery Me thod Room Air 11/06/23 04:00 MDM - Epistaxis Medical Decision Making Rhino Rocket was placed patient cannot tolerated it so we will take that and packed the nose with gauze. Patient could tolerate this with Around for several hours patient did not start bleeding again. Will give her blood pressure medicine and blood pressure went down to. Patient be discharged home. Differential Diagnosis Likely anterior epistaxis Medical Records I reviewed the patient's medical records. Lab Data I reviewed the patient's lab results. No radiology studies performed this visit Discharge Plan Discharge Patient Disposition: Home Clinical Impression: Epistaxis Condition: Stable Prescriptions: No Action fluoxetine 40 mg capsule 40 mg PO DAILY@15 alprazolam 0.25 mg tablet 0.5 mg PO BID PRN (Reason: anxiety) lisinopril 10 mg tablet 10 mg PO DAILY@15 nitroglycerin [Nitrostat] 0.4 mg tablet, sublingual 0.4 mg sublingual Q5M PRN (Reason: chest pain) Qty: 25 3RF Rx Instructions: do not exceed 3 doses per episode potassium chloride 20 mEq tablet extended release 20 meq PO DAILY PRN (Reason: edema) Qty: 30 3RF Rx Instructions: when taking Lasix fluconazole 150 mg tablet 150 mg PO ONCE Qty: 1 0RF insulin degludec [Tresiba FlexTouch U-100] 100 unit/mL (3 mL) insulin pen 35 unit SUBCUT BID Qty: 63 1RF (DME) Dexcom G7 Imaging Specialist Misc See Rx Instructions .Route Qty: 1 0RF Rx Instructions: As directed (DME) Dexcom G7 Sensor Device See Rx Instructions .Route Qty: 3 3RF Rx Instructions: As directed Mounjaro 2.5 mg/0.5 mL pen injector 2.5 mg SUBCUT Q7D 30 Days Qty: 2 0RF Rx Instructions: 2.5mg weekly for one month Mounjaro 5 mg/0.5 mL pen injector 5 mg SUBCUT Q7D 30 Days Qty: 2 0RF Rx Instructions: 5mg weekly for one month Mounjaro 7.5 mg/0.5 mL pen injector 7.5 mg SUBCUT Q7D Qty: 2 1RF Rx Instructions: 7.5mg weekly acarbose 25 mg tablet 25 mg PO TID Qty: 90 1RF Rx Instructions: take one before meals metformin 1,000 mg tablet 1,000 mg PO BID Qty: 60 1RF furosemide 40 mg tablet 40 mg PO DAILY PRN (Reason: edema) Qty: 30 6RF Rx Instructions: for 3 days daily then prn metoprolol succinate 25 mg tablet extended release 24 hr 25 mg PO DAILY@15 Qty: 30 0RF Rx Instructions: MUST have follow-up for further refills pantoprazole 40 mg tablet,delayed release (DR/EC) 40 mg PO DAILY@15 Qty: 30 0RF Rx Instructions: MUST have follow-up for further refills Januvia 100 mg tablet 100 mg PO DAILY Qty: 90 0RF budesonide-formoterol 160-4.5 mcg/actuation HFA aerosol inhaler 1 puff INHALATION BID@15,22 atorvastatin 80 mg tablet 80 mg PO DAILY Brilinta 90 mg tablet 90 mg PO BID isosorbide mononitrate 30 mg tablet extended release 24 hr 15 mg PO BID 30 Days Qty: 60 2RF Senna-S 8.6-50 mg tablet 2 tab-cap PO BID Qty: 60 0RF magnesium 200 mg tablet 200 mg PO DAILY Qty: 30 0RF ondansetron 4 mg film 4 mg PO DAILY PRN (Reason: nausea and vomiting) Qty: 10 0RF Discharge Orders: Discharge ED (Routine); Ordered 11/06/23 Ordered By: Negro Sullivan Referrals: Christa Arana PA [Primary Care Provider] - 1 week Patient Instructions: Epistaxis - Adult Coding Level of Care Code ED Real Estate Associate Attorney for Meli Sawant
[2023-11-06] MEDS: cloNIDine 0.1 mg Tablet 0.2 MG PO (02:26)
[2023-11-06] MEDS: metoprolol tartrate 25 mg Tablet PO (02:26)
[2023-11-06] MEDS: metoprolol succinate ER (24 HR) 50 mg Tablet 25 MG PO (05:03)
== END 2023-11-06 05:15 | disposition home or self-care (01) ==
PROVIDERS: Emergency Provider Emergency Medicine; PCP Physician Assistant
DX: R04.0 Epistaxis (principal); Z79.84 Long term (current) use of oral hypoglycemic drugs; Z79.4 Long term (current) use of insulin; I11.0 Hypertensive heart disease with heart failure; I50.30 Unspecified diastolic (congestive) heart failure; I25.10 Atherosclerotic heart disease of native coronary artery without angina pectoris; E11.9 Type 2 diabetes mellitus without complications
CPT/HCPCS: 99283

== ENCOUNTER → 2024-06-03 11:41 | Outpatient (BNVA) | payer BC, SELFPAY | PROVIDERS: PCP Physician Assistant; Visit Provider Psychiatry & Neurology Neurology | DX: R07.9 Chest pain, unspecified (principal); R55 Syncope and collapse; E55.9 Vitamin D deficiency, unspecified; I21.9 Acute myocardial infarction, unspecified | CPT/HCPCS: 36415; 83090; 85210; 85300; 85303; 85306; 85613; 85730; 86147 ==

== ENCOUNTER 2024-06-14 07:30 | Outpatient (CLI) | payer BC, SELFPAY ==
--- NOTE | 2024-06-14 07:45 | MR_ITS ---
WS: [id number] MRI HEAD WITH CONTRAST TECHNIQUE: Sagittal T1, T2 axial, T2 axial FLAIR, axial susceptibility weighted imaging, axial diffusion weighted images, and coronal T2 images were obtained. Pre and post-T1 axial and post T1 coronal images. ADC and FSPGR images. CLINICAL INFORMATION: G37.9 - Demyelinating disease of central nervous system, ... COMPARISON: None. FINDINGS: No evidence of restricted diffusion to suggest acute ischemia. Ventricular system and basal cisterns are patent. Normal posterior fossa. Normal vascular flow voids at the skull base. No extra-axial fluid collections. No evidence of mass or mass effect. Paranasal sinuses and mastoid air cells are well aerated. Patchy supratentorial white matter changes stable since 09/23/2023. Few patchy foci within the shruthi. No hemosiderin on susceptibility weighted images. Normal optic chiasm and the pituitary infundibulum. No abnormal gadolinium enhancement. Normal visualized dural venous sinuses. No significant atrophy of the corpus callosum. No significant T1 hypointense lesion noted. No other acute findings. MR/MR head wo/w con [id number] IMPRESSION: 1. No evidence of restricted diffusion to suggest acute ischemia. 2. Patchy supratentorial white matter changes stable since 09/23/2023. Differen tial considerations previously described unchanged and include hypertension, di abetes, collagen vascular disease, vasculitis, and demyelinating disease. 3. No abnormal gadolinium enhancement. 4. Tiny chronic lacunar infarct RIGHT cerebellum better visualized on the prio r study. 5. No other acute findings.
--- NOTE | 2024-06-14 08:30 | MR_ITS ---
WS: [id number] MRA CAROTID WITHOUT AND WITH GADOLINIUM ENHANCEMENT TECHNIQUE: Axial 2-D TOF and gadolinium bolus images obtained with axial images and axial, sagittal, and coronal 2-D reformatted images. CLINICAL INFORMATION: G37.9 - Demyelinating disease of central nervous system, ... COMPARISON: None. FINDINGS: RIGHT: RIGHT common carotid artery is patent. No significant RIGHT ICA stenosis. RIGHT ICA is patent to the skull base. LEFT: LEFT common carotid artery is patent. No significant LEFT ICA stenosis. LEFT ICA is patent to the skull base. LEFT dominant vertebral artery. RIGHT vertebral artery is patent. Proximal subclavian arteries are patent MR/MR angio neck w con* [id number] IMPRESSION: Normal neck MRA.
[2024-06-14] MEDS: gadobenate dimeglumine 20 mL vial IV (09:12)
--- NOTE | 2024-06-14 09:15 | MR_ITS ---
WS: [id number] MRA HEAD TECHNIQUE: Axial 3-D TOF images obtained with axial images and axial, sagittal, and coronal 2-D reformatted images. CLINICAL INFORMATION: R55 - Syncope and collapse COMPARISON: None. FINDINGS: Distal vertebral arteries are patent. Basilar artery is patent. Normal vascularity to the LATENT FINGERPRINT EXAMINER territories bilaterally. Both ICAs are patent at the skull base. Normal vascularity to the PAULA and MCA territories bilaterally. No evidence of proximal flow-limiting stenosis. MR/MR angio head wo con [id number] IMPRESSION: Unremarkable intracranial MRA.
== END 2024-06-14 07:31 | disposition home or self-care (01) ==
PROVIDERS: PCP Physician Assistant; Visit Provider Psychiatry & Neurology Neurology
DX: R55 Syncope and collapse (principal); G37.9 Demyelinating disease of central nervous system, unspecified; G44.53 Primary thunderclap headache; I25.10 Atherosclerotic heart disease of native coronary artery without angina pectoris; I50.30 Unspecified diastolic (congestive) heart failure; R93.0 Abnormal findings on diagnostic imaging of skull and head, not elsewhere classified
CPT/HCPCS: 70544; 70548; 70553; A9577

== ENCOUNTER 2024-07-15 13:48 | Emergency (ER) | payer BC, SELFPAY ==
[2024-07-15] VITALS (7 sets, daily range): BP systolic 141–172; BP diastolic 82–91; PULSE 72–100; RESP 16–17; TEMP 36.8; O2SAT 93–98; BMI 53.1
--- NOTE | 2024-07-15 14:14 | CTR_ITS ---
PROCEDURE INFORMATION: Exam: CT Abdomen And Pelvis With Contrast Exam date and time: 07/15/2024 5:31 PM Age: 54 years old Clinical indication: Abdominal pain; Localized; Right lower quadrant (rlq); Additional info: Abd pain TECHNIQUE: Imaging protocol: Computed tomography of the abdomen and pelvis with contrast. Radiation optimization: All CT scans at this facility use at least one of these dose optimization techniques: automated exposure control; mA and/or kV adjustment per patient size (includes targeted exams where dose is matched to clinical indication); or iterative reconstruction. Contrast material: OMNI 350; Contrast volume: 100 ml; Contrast route: INTRAVENOUS (IV); COMPARISON: CT abdomen pelvis w con* [id number] 11/17/2022 7:05 PM RADIATION DOSE METRICS: Total DLP (mGy-cm): 1229.64 FINDINGS: Diaphragm: Small hiatal hernia. Liver: Hepatic steatosis and hepatomegaly. Gallbladder and biliary ducts: Contracted gallbladder. No significant biliary ductal dilatation. Pancreas: Normal. No ductal dilation. Spleen: Normal. No splenomegaly. Adrenal glands: Normal. No mass. Kidneys and ureters: No suspicious renal lesions. No hydronephrosis or nephrolithiasis. No ureteral stones. Stomach and bowel: Descending and colon diverticulosis without CT evidence of acute diverticulitis. Normal caliber of the bowel without evidence of obstruction. No focal bowel wall thickening or inflammation. Appendix: Appendix unremarkable. Intraperitoneal space: Unremarkable. No free air. No significant fluid collection. Vasculature: Unremarkable. No abdominal aortic aneurysm. Lymph nodes: Unremarkable. No enlarged lymph nodes. Urinary bladder: Unremarkable as visualized. Reproductive: Surgically absent uterus. No adnexal masses. Bones/joints: Unremarkable. No acute fracture. Soft tissues: Unremarkable. CT/CT abdomen pelvis w con* [id number] IMPRESSION: 1. No acute findings in the abdomen or pelvis. 2. Hepatic steatosis and hepatomegaly. 3. Descending and colon diverticulosis without CT evidence of acute diverticulitis.
--- NOTE | 2024-07-15 14:15 | ECG_ITS ---
[facility] [employer] (powering [employer]) Test Date: 2024-07-15 Pat Name: Rimma White Department: Room: Gender: Female Passenger Brakeman: : 1970 Requested By: Juarez Mcclain Order Number: [id number] Reading MD: JASON CARMICHAEL Measurements Intervals [place] Rate: 80 P: 61 NE: 196 QRS: 40 QRSD: 80 T: 63 QT: 377 QTc: 437 Interpretive Statements SINUS RHYTHM WITH OCCASIONAL ECTOPIC PREMATURE COMPLEXES LOW QRS VOLTAGE IN PRECORDIAL LEADS [QRS DEFLECTION < 1.0 mV IN CHEST LEADS] NONSPECIFIC T-WAVE ABNORMALITY Compared to ECG 11/01/2023 14:17:11 T-wave abnormality now present Sinus tachycardia no longer present Electronically Signed On 07-15-2024 23:26:26 CDT by JASON CARMICHAEL [email or web address]
[2024-07-15 14:45] LABS: Basophils % 0.2 %; Eosinophils # 0.2 10^3/uL (0.0-0.8); Eosinophils % 1.4 %; Hematocrit 42.9 % (36-47); Lymphocytes # 2.5 10^3/uL (0.8-4.8); Mean Corpuscular HGB Conc 31.7 g/dL (30-55); Mean Corpuscular Hemoglobin 27.5 pg (27-33); Mean Corpuscular Volume 86.7 fl (85-98); Mean Platelet Volume 10.6 fL (7.4-10.4); Monocytes # 0.4 10^3/uL (0.2-0.9); Monocytes % 3.3 %; Neutrophils # 8.43 10^3/uL (1.8-7.7); Neutrophils % 72.8 %; Nucleated Red Blood Cells % 0 %; Platelet Count 275 10^3/cmm (157-399); Red Blood Count 4.95 10^6/uL (3.85-5.65); Red Cell Distribution Width 13.6 % (12.1-15.1); White Blood Count 11.57 10^3/uL (3.29-11.43)
[2024-07-15 15:04] LABS: Alanine Aminotransferase 21 U/L (0-33); Albumin Level 3.8 g/dL (3.5-5.2); Alkaline Phosphatase 132 U/L (35-105); Aspartate Amino Transferase 14 U/L (0-32); Blood Urea Nitrogen 10 mg/dL (6-20); Calcium 9.4 mg/dL (8.5-10.5); Carbon Dioxide 26 mmol/L (22-29); Chloride 98 mmol/L (98-107); Creatinine Clr Calc Pharmacy 127.4438; Globulin 3.2 g/dL (1.3-4.6); Glomerular Filtration Rate 87.9 mL/min (90-130); Glucose 205 mg/dL (65-115); Lipase 20 U/L (13-60); Osmolality Calculated 289 mOsm/kg (285-295); Sodium 137 mmol/L (136-145); Total Bilirubin 0.5 mg/dL (0.15-1.2)
[2024-07-15 16:51] LABS: Bilirubin Urine Negative (Negative); Blood Urine Negative (Negative); Glucose Urine UA Negative (Normal); Ketones Urine Trace (Negative); Leukocyte Esterase Urine Negative (Negative); Nitrate Urine Negative (Negative); Protein Urine Trace (Negative); Urine Appearance Clear (CLEAR); Urine Color Dark Yellow (Yellow); pH Urine 5.5 (5-7)
[2024-07-15 16:54] LABS: Add Urine Microscopic? YES; Bacteria Urine Trace /hpf; Hyaline Casts Urine 1.65 /lpf; RBC Urine 0-2 /hpf (0-2); WBC Urine 0-5 /hpf (0-5)
[2024-07-15 17:05] LABS: Add Urine Culture? No; Specific Gravity, Urine 1.034 (1.005-1.030)
[2024-07-15] MEDS: iohexol 350 mg/mL 500 mL Btl (per mL) IV (17:32)
[2024-07-15] MEDS: ketorolac 30 mg/mL INJ 15 MG IVP (17:45)
--- NOTE | 2024-07-15 19:59 | ED_ITS ---
HPI - Abdominal Pain 2 General: Chief Complaint: Abdominal Pain Stated Complaint: low abd pain Time Seen by Provider: 07/15/24 16:51 Source: patient Mode of arrival: ambulatory Limitations: no limitations History of Present Illness: RLQ abdominal pain. worsening over the past few days. seen in clinic and had CT ordered but told if getting worse to come up here. is scheduled for LP tomorrow for another issue. Pt reports she was hurting worse and scare to get LP if she had active infection. also has some orange discoloration on her panties the pas few days. no taking any azo of any other supplemnts. unsure if blood or what. no known incontinence. Related Data Home Medications ?Medication ?Instructions ?Recorded ?Confirmed fluoxetine 40 mg capsule 40 mg PO DAILY@11/04/19 0 06/03/24 lisinopril 10 mg tablet 10 mg PO DAILY@11/19/19 0 06/03/24 budesonide-formoterol HFA 160 1 puff inhalation BID@02/21/20 06/03/24 mcg-4.5 mcg/actuation aerosol inhaler atorvastatin 80 mg tablet 80 mg PO DAILY 05/23/2105/25 Previous Rx's ?Medication ?Instructions ?Recorded potassium chloride 20 mEq 20 meq PO DAILY PRN edema #3 0 tabs 05/18/20 tablet,extended release furosemide 40 mg tablet 40 mg PO DAILY PRN edema #30 tabs 10/06/20 isosorbide mononitrate 30 mg 15 mg (1/2 x 30 mg) PO BI D 30 days 05/24/21 tablet,extended release 24 hr #60 tabs metoprolol succinate 25 mg 25 mg PO DAILY@15 #30 tabs 05/28/22 tablet,extended release 24 hr pantoprazole 40 mg tablet,delayed 40 mg PO DAILY@15 #3 0 tabs 05/28/22 release acarbose 25 mg tablet See Rx Instructions .Route 1 04/19/23 .COMPLEX #30 tabs metformin 1,000 mg tablet See Rx Instructions .Route 0 04/27/24 .COMPLEX #60 tabs insulin degludec 100 unit/mL (3 40 unit (0.4 mL) SUBCU T BID 1 06/14/24 mL) subcutaneous pen (Tresiba month #24 mL FlexTouch U-100 insulin) fluconazole 150 mg tablet 150 mg PO ONCE #1 tab metronidazole 500 mg tablet 500 mg PO Q12H 5 days #10 tabs 07/15/24 Allergies Allergy/AdvReac Type Severity Reaction Status Date / Time Alpha-Gal Allergy ALGY-Anaphy Verified 06/11/24 16:46 (Undxbpino-Bburd-5,3-Gala laxis Penicillins Allergy ALGY-Rash Verified 06/11/24 16:46 quetiapine (From Seroquel) Allergy Restless Verified 06/11/24 16:46 legs, acts like she is drunk tetracycline Allergy vomiting Verified 06/11/24 16:46 Review of Systems 2 General: Reports: 10 or more systems reviewed and unremarkable except in HPI and below PFSH ED 2 PFSH: Medical History (HFpEF) heart failure with preserved eje ction fraction Chest pain Asthma Diastolic heart failure Coronary artery disease Obesity Hypertension Diabetes Surgical History History of umbilical hernia repair Family History Other Hypertension Social History Smoking and tobacco/nicotine status: never used tobacco/nicotine Alcohol intake: current Alcohol intake frequency: holidays/special occasions only Physical Exam 2 Const: COMMON NORMALS: no acute distress, patient oriented x3, healthy appearing, alert and well nourished GENERAL APPEARANCE: well kempt and well developed NUTRITIONAL APPEARANCE: obese HENMT: COMMON NORMALS: normocephalic, atraumatic, external ears normal and moist oral mucous membranes HEAD & SCALP: normocephalic and atraumatic E XTERNAL EAR: Yes external ears normal Eye: COMMON NORMALS: Equal, round and reactive pupils present, EOMs intact bilaterally and conjunctivae normal CONJUNCTIVA: Yes conjunctivae normal P UPIL: Yes Equal, round and reactive pupils present Neck/C-Spine: COMMON NORMALS: full ROM, no lymphadenopathy and supple Chest: CHEST: Yes Symmetrical chest wall rise and No Surgical scars present (Chest) Resp: COMMON NORMALS: normal respiratory effort, No retractions, No use of accessory muscles and clear to auscultation bilaterally AUSCULTATION: clear to auscultation bilaterally Cardio: COMMON NORMALS: regular rate, regular rhythm, S1 normal heart sound present, S2 normal heart sound present, No gallops present (Cardio), No clicks present (Cardio), No murmurs present (Cardio) and No rub (Cardio) RATE: r egular rate RHYTHM: regular rhythm HEART SOUNDS: S1 normal heart sound present, S2 normal heart sound present and no murmurs PERIPHERAL PULSES: o ther (Radial pulses 2+ and symmetric) GI: COMMON NORMALS: Soft to palpation, No hepatosplenomegaly present and no masses INSPECTION: No abdominal distension PALPATION: Yes Soft to palpation, Yes Tenderness to palpation present (GI) (RLQ/inguinal area. no palpable hernia. no rebound. ), No Guarding due to palpation present (GI), Yes No hepatosplenomegaly present and No Rebound tenderness present : COMMON NORMALS: Yes no CVA tenderness BLADDER/KIDNEY EXAM: Yes no CVA tenderness Back/Pelvis: COMMON NORMALS: no CVA tenderness Extremity: COMMON NORMALS: normal to inspection, full ROM, capillary refill normal and no clubbing, cyanosis or edema Neuro: COMMON NORMALS: patient oriented x3 SENSORIUM/ORIENTATION: Yes alert Psych: APPEARANCE: Yes well kempt Skin: COMMON NORMALS: no rashes or lesions noted, no wounds, turgor normal and no jaundice GENERAL SKIN EXAM: no rashes or lesions noted and turgor normal Course 2 Vital Signs: Vital signs: Vital Signs Temperature 98.2 F 07/15/24 13:56 Pulse Rate 79 07/15/24 20:22 Respiratory Rate 16 07/15/24 20:22 Blood Pressure 172/89 07/15/24 20:22 Pulse Oximetry 98 07/15/24 20:22 Oxygen Delivery Me thod Room Air 07/15/24 18:58 MDM - Abdominal Pain Medical Decision Making Very mildly elevated white count 11.57. H&H normal. Glucose slightly high at 205. However this is a random nonfasting. Patient CT was thankfully unremarkable. Given how low the pain in her abdomen is and where specifically she says she is tender. I have more concern for inguinal strain at this time than anything intra-abdominal. Advised her to follow-up with her doctor. Regarding the discharge will prescribe Flagyl for a few days and then finished with a dose of Diflucan. Patient to follow-up with PCP on Friday. EKG reviewed: EKG done at 1838, reviewed personally at 1840, no previous for comparison. EKG is sinus rhythm at a rate of 80 with a FL interval of 196 QTc of 413, no axis change no ST elevation Medical Records I reviewed the patient's medical records. Lab Data I reviewed the patient's lab results. 07/15/24 14:35 07/15/24 14:35 Labs/Radiology: Radiology Impressions Abdomen/Pelvis CT 07/15/24 14:14 IMPRESSION: 1. No acute findings in the abdomen or pelvis. 2. Hepatic steatosis and hepatomegaly. 3. Descending and colon diverticulosis without CT evidence of acute diverticulitis. Laboratory Results WBC 11.57 10^3/uL (3.29-11.43) H 07/15/24 14:35 RBC 4.95 10^6/uL (3.85-5.65) 07/15/24 14:35 Hgb 13.60 g/dL (11.27-16.99) 07/15/24 14:35 Hct 42.9 % (36-47) 07/15/24 14:35 MCV 86.7 fl (85-98) 07/15/24 14:35 MCH 27.5 pg (27-33) 07/15/24 14:35 MCHC 31.7 g/dL (30-55) 07/15/24 14:35 RDW 13.6 % (12.1-15.1) 07/15/24 14:35 Plt Count 275 10^3/cmm (157-399) 07/15/24 14:35 MPV 10.6 fL (7.4-10.4) H 07/15/24 14:35 Neut % (Auto) 72.8 % 07/15/24 14:35 Lymph % (Auto) 22.0 % 07/15/24 14:35 [place] % (Auto) 3.3 % 07/15/24 14:35 Eos % (Auto) 1.4 % 07/15/24 14:35 Baso % (Auto) 0.2 % 07/15/24 14:35 Neut # (Auto) 8.43 10^3/uL (1.8-7.7) H 07/15/24 14:35 Lymph # (Auto) 2.5 10^3/uL (0.8-4.8) 07/15/24 14:35 [place] # (Auto) 0.4 10^3/uL (0.2-0.9) 07/15/24 14:35 Eos # (Auto) 0.2 10^3/uL (0.0-0.8) 07/15/24 14:35 Baso # (Auto) 0.0 10^3/uL (0.0-0.1) 07/15/24 14:35 Nucleated RBC % (auto) 0 % 07/15/24 14:35 Nucleated RBCs # 0.0 /100WBC 07/15/24 14:35 Sodium 137 mmol/L (136-145) 07/15/24 14:35 Potassium 4.0 mmol/L (3.5-5.1) 07/15/24 14:35 Chloride 98 mmol/L (98-107) 07/15/24 14:35 Carbon Dioxide 26 mmol/L (22-29) 07/15/24 14:35 Anion Gap 17.0 (5-19) 07/15/24 14:35 BUN 10 mg/dL (6-20) 07/15/24 14:35 Creatinine 0.7 mg/dL (0.5-0.9) 07/15/24 14:35 GFR Calculation 87.9 mL/min (90-130) L 07/15/24 14:35 Glucose 205 mg/dL (65-115) H 07/15/24 14:35 Calculated Osmolality 289 mOsm/kg (285-295) 07/15/24 14:35 Calcium 9.4 mg/dL (8.5-10.5) 07/15/24 14:35 Total Bilirubin 0.5 mg/dL (0.15-1.2) 07/15/24 14:35 AST 14 U/L (0-32) 07/15/24 14:35 ALT 21 U/L (0-33) 07/15/24 14:35 Alkaline Phosphatase 132 U/L (35-105) H 07/15/24 14:35 Total Protein 7.0 g/dL (6.6-8.7) 07/15/24 14:35 Albumin 3.8 g/dL (3.5-5.2) 07/15/24 14:35 Globulin 3.2 g/dL (1.3-4.6) 07/15/24 14:35 Lipase 20 U/L (13-60) 07/15/24 14:35 Urine Color Dark yellow (Yellow) A 07/15/24 13:50 Urine Appearance Clear (CLEAR) 07/15/24 13:50 Urine pH 5.5 (5-7) 07/15/24 13:50 Ur Specific [place] 1.034 (1.005-1.030) H 07/15/24 13:50 Urine Protein Trace (Negative) A 07/15/24 13:50 Urine Glucose (UA) Negative (Normal) 07/15/24 13:50 Urine Ketones Trace (Negative) 07/15/24 13:50 Urine Blood Negative (Negative) 07/15/24 13:50 Urine Nitrate Negative (Negative) 07/15/24 13:50 Urine Bilirubin Negative (Negative) 07/15/24 13:50 Urine Urobilinogen 1.0 mg/dL (Negative) 07/15/24 13:50 Ur Leukocyte Esterase Negative (Negative) 07/15/24 13:50 Urine RBC 0-2 /hpf (0-2) 07/15/24 13:50 Urine WBC 0-5 /hpf (0-5) 07/15/24 13:50 Ur Squamous Epith Cells 11-20 /hpf (0-5) H 07/15/24 13:50 Amorphous Sediment Not Reportable 07/15/24 13:50 Urine Bacteria Trace /hpf (NONE) 07/15/24 13:50 Hyaline Casts 1.65 /lpf 07/15/24 13:50 All radiology interpretation(s) finalized by discharge ED provider radiology interpretation(s): Personally viewed CT of abdomen pelvis and have no acute findings. Defer further details to radiology review. Discharge Plan Discharge Patient Disposition: Home Clinical Impression: Vaginal discharge, Increased urinary frequency Inguinal strain Qualifiers: Encounter type: initial encounter Laterality: right Qualified Code(s): S76.211A - Strain of adductor muscle, fascia and tendon of right thigh, initial encounter Condition: Stable Prescriptions: New metronidazole 500 mg tablet 500 mg PO Q12H 5 Days Qty: 10 0RF fluconazole 150 mg tablet 150 mg PO ONCE Qty: 1 0RF Rx Instructions: take on last day of antibiotics No Action fluoxetine 40 mg capsule 40 mg PO DAILY@15 lisinopril 10 mg tablet 10 mg PO DAILY@15 potassium chloride 20 mEq tablet extended release 20 meq PO DAILY PRN (Reason: edema) Qty: 30 3RF Rx Instructions: when taking Lasix insulin degludec [Tresiba FlexTouch U-100] 100 unit/mL (3 mL) insulin pen 40 unit SUBCUT BID 30 Days Qty: 24 3RF furosemide 40 mg tablet 40 mg PO DAILY PRN (Reason: edema) Qty: 30 6RF Rx Instructions: for 3 days daily then prn metoprolol succinate 25 mg tablet extended release 24 hr 25 mg PO DAILY@15 Qty: 30 0RF Rx Instructions: MUST have follow-up for further refills pantoprazole 40 mg tablet,delayed release (DR/EC) 40 mg PO DAILY@15 Qty: 30 0RF Rx Instructions: MUST have follow-up for further refills acarbose 25 mg tablet See Rx Instructions .ROUTE .COMPLEX Qty: 30 0RF Dose Instruction: TAKE 1 TABLET BY MOUTH THREE TIMES DAILY TAKE ONE BEFORE MEALS Rx Instructions: TAKE 1 TABLET BY MOUTH THREE TIMES DAILY TAKE ONE BEFORE MEALS metformin 1,000 mg tablet See Rx Instructions .ROUTE .COMPLEX Qty: 60 0RF Dose Instruction: Take 1 tablet by mouth twice daily Rx Instructions: Take 1 tablet by mouth twice daily budesonide-formoterol 160-4.5 mcg/actuation HFA aerosol inhaler 1 puff INHALATION BID@15,22 atorvastatin 80 mg tablet 80 mg PO DAILY isosorbide mononitrate 30 mg tablet extended release 24 hr 15 mg PO BID 30 Days Qty: 60 2RF Discharge Orders: Discharge ED (Routine); Ordered 07/15/24 Ordered By: Spencer Ramos Referrals: Christa Arana PA [Primary Care Provider, [facility] [employer]] Discharge Diet: Usual diet Discharge Activity: Limit activity as instructed Patient Instructions: Groin Strain (ED), Vaginal Discharge (ED) Activity Restrictions/Additional Instructions: Take medications as prescribed. Can take ibuprofen or Aleve for the groin strain. Stand Alone Forms: Work/School Release Print Language: Ukrainian Coding Level of Care Code ED Exterior Interior Specialist for Meli Sawant
[2024-07-15] MEDS: metroNIDAZOLE 500 MG Tablet PO (20:17)
== END 2024-07-15 20:24 | disposition home or self-care (01) ==
PROVIDERS: Family Medicine; Emergency Provider Emergency Medicine; PCP Physician Assistant
DX: S76.211A Strain of adductor muscle, fascia and tendon of right thigh, initial encounter (principal); R35.0 Frequency of micturition; N89.8 Other specified noninflammatory disorders of vagina; Z79.84 Long term (current) use of oral hypoglycemic drugs; X58.XXXA Exposure to other specified factors, initial encounter
CPT/HCPCS: 36415; 74177; 80053; 81001; 83690; 85025; 93005; 96374; 99285; J1885; J9999

== ENCOUNTER 2024-07-16 09:52 | Outpatient (CLI) | payer BC, SELFPAY ==
--- NOTE | 2024-07-16 10:00 | FL_ITS ---
WS: [id number] LUMBAR PUNCTURE CLINICAL INFORMATION: G44.53 - Primary thunderclap headache COMPARISON: None. TECHNIQUE: Informed consent: The procedure and its potential risk and complications were discussed with the patient. Verbal and written consent was obtained. Timeout: A timeout was performed to confirm correct patient, procedure, and site. Patient was prepped and draped in the usual sterile fashion. Lidocaine 1% was used for local anesthesia. Utilizing fluoroscopic guidance, a 5.0 inch 22-gauge spinal needle was advanced into the subarachnoid space at L2-3 via LEFT oblique sublaminar approach. Free flow of clear CSF was obtained. 13 cc of CSF was collected and sent the lab for further analysis. FLUOROSCOPIC TIME: 3min [id number] # of spot films: 1 FL/FL guided lumbarpunc dx* [id number] IMPRESSION: Fluoroscopically guided lumbar puncture. No immediate complications Opening pressure 19 and closing pressure 11 mL H20
[2024-07-16 11:48] LABS: Appearance CSF CLEAR (CLEAR); Color CSF COLORLESS (COLORLESS); PATH Referral YES
[2024-07-16 12:11] LABS: Mononuclear WBC CSF % 100 % (50-90); Polynuclear WBC CSF % 0 % (0-10); Red Blood Cell CSF 0 10^3/uL (0-0); White Blood Cell CSF 1 /uL (0-5)
[2024-07-16 12:28] LABS: Glucose CSF 87 mg/dL (40-70); Total Protein CSF 19 mg/dL (15-45)
[2024-07-17 16:08] LABS: HIV RNA (CPY/ML) NOT DETECTED (NOT DETECTED); HIV RNA LOG NOT DETECTED copies/mL (NOT DETECTED)
[2024-07-19 16:16] LABS: Cytomegalovirus DNA,QL RT PCR Not Detected (Not Detected); Cytomegalovirus Source Results Below
[2024-07-19 17:00] LABS: Epstein Barr Virus Qual PCR Not Detected (Not Detected); Epstein Barr Virus Source Results Below
[2024-07-20 11:05] LABS: Angiotensin Convert Enzy CSF 6 U/L (<=15)
[2024-07-20 14:54] LABS: Immunoglobulin G, CSF 1.2 mg/dL (0.8-7.7)
[2024-07-20 17:59] LABS: Toxoplasma Gondii IgM CSF <0.80
[2024-07-20 19:09] LABS: Toxoplasma Gondii IgG CSF <0.90
[2024-07-20 20:34] LABS: JC Polyoma Virus DNA PCR CSF NOT DETECTED; JC Polyoma Virus DNA PCR CSF NOT DETECTED Log IU/mL
[2024-07-21 00:10] LABS: VDRL on CSF NON-REACTIVE
[2024-07-21 01:54] LABS: Oligoclonal Bands IGG, CSF ABSENT (ABSENT)
== END 2024-07-16 09:53 | disposition home or self-care (01) ==
PROVIDERS: PCP Physician Assistant; Visit Provider Psychiatry & Neurology Neurology
DX: G44.53 Primary thunderclap headache (principal); G37.9 Demyelinating disease of central nervous system, unspecified; E78.2 Mixed hyperlipidemia
CPT/HCPCS: 36415; 62328; 80503; 82040; 82042; 82164; 82784; 82945; 83916; 84157; 86382; 86403; 86592; 86777; 86778; 86788; 86789; 87070; 87075; 87205; 87327; 87496; 87536; 87798; 87799; 89050; J9999

== ENCOUNTER 2025-01-24 07:03 | Outpatient (CLI) | payer BC, SELFPAY ==
--- NOTE | 2025-01-24 07:18 | CT_ITS ---
WS: [id number] LDCT LUNG CANCER SCREENING TECHNIQUE: Noncontrast CT of the chest with coronal and sagittal reformatted images. CLINICAL INFORMATION: NICOTINE DEPENDENCE,CIGARETTES COMPARISON: None. DLP: 215.71 mGy.cm DIvol: Mean CTDIvol: 5.50 (mGy) All CT scans at [facility] use at least one of these dose optimization techniques: automated exposure control; mA and/or kV adjustment per patient size (includes targeted exams where dose is matched to clinical indication); or iterative reconstruction. FINDINGS: Subsegmental atelectasis in the lung bases, RIGHT middle lobe and lingula. Aortic calcification. Coronary calcification. No mediastinal or hilar lymphadenopathy. No axillary lymphadenopathy. Adrenal glands are normal. Small esophageal hiatal hernia. Splenic artery calcification. CT/CT lung screening [id number] IMPRESSION: LUNG-RADS: 1-Negative FOLLOW UP: 12 Month: Continue annual screening with LDCT
== END 2025-01-24 07:04 | disposition home or self-care (01) ==
LOC: RAD 07:04
PROVIDERS: PCP Physician Assistant; Visit Provider Physician Assistant
DX: Z12.2 Encounter for screening for malignant neoplasm of respiratory organs (principal); I70.0 Atherosclerosis of aorta; I25.10 Atherosclerotic heart disease of native coronary artery without angina pectoris; K44.9 Diaphragmatic hernia without obstruction or gangrene; D73.89 Other diseases of spleen
CPT/HCPCS: 71271